=== PATIENT | male | born 1955 | race Caucasian/White ===

== ENCOUNTER 2021-05-07 11:51 | Outpatient (REF) | payer MEDICARE, MEDICAID, SELFPAY | END 2021-05-07 11:52 | disposition home or self-care (01) | LOC: HO.HMGCLDS 11:51 | PROVIDERS: PCP Family Medicine Adult Medicine; Visit Provider Internal Medicine | DX: Z20.822 Contact with and (suspected) exposure to COVID-19 (principal) | CPT/HCPCS: C9803; U0003; U0005 ==

== ENCOUNTER 2025-04-15 09:35 | Outpatient (AMB) | payer MEDICARE, MEDICAID, SELFPAY ==
--- NOTE | 2025-04-15 09:39 | AM.OFFWIN_ITS ---
Intake Vital Signs 04/15/25 09:52 Height 5 ft 8 in Weight 206 lb 2 oz BMI 31.3 BP 162/70 H Blood Pressure Location Rt brachial Position Sitting Pulse 72 Pulse Source Pulse Oximeter Temp 97.8 F Temp Source Oral Pulse Oximetry (%) 99 Oxygen Delivery Method Room Air Intake Visit Reasons: EP Arthritis in LT hand? Throbbing, swelling Intake Note: Patient present with bilateral hand swelling times 1 week. Patients states the is pain bilateral Patient Tobacco Use Status: Former Tobacco user Legal Researcher Required: No Allergies No Known Allergies Allergy (Verified 04/15/25 09:56) Medication List - Last Reconciled 04/15/25 by Meredith Gibson PA-C No Known Home Meds Do you need a note to return to daycare/school/sports/work: No HPI HPI Comments History of Present Illness Details History - The patient is a 69-year-old male pres enting with hypertension and bilateral hand pain, L>R. - The patient has a blood pressure readi ng of 162/70 mmHg and has not been under regular medical supervision for this condition. - The patient has not experienced sympto ms such as headaches, dizziness, or chest pain, despite the elevated blood pressure. - The patient reports a history of neck pain and was diagnosed with arthritis in the neck following an MRI after a fall in 2018. - The patient experiences intermittent p ain in the left shoulder and numbness in the left thumb. - The patient has noted swelling in the hand, which has led to the removal of a wedding ring. - the pain has disrupted his sleep - He has not seen a doctor in many years and does not have a PCP Physical Exam General: Cooperative, healthy appearing, comfortable, no acute distress and well developed Orientation: Patient oriented x3 Limitations: No limitations Head: Normal to inspection Ears: Hearing grossly normal bilaterally Nose: Normal External nose present Face and sinus: Normal facial exam Mouth: normal, moist oral mucosa Eyes: Appearance normal, both eyes and all related structures Neck: Normal visual inspection and Yes full ROM Respiratory: Normal respiratory effort and able to speak in complete sentences. 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 PFSH Social History Patient Tobacco Use Status: Former Tobacco user Review of Systems Const All systems reviewed & are unremarkable except as noted in HPI and below Physical Exam Vital Signs: Last Vital Signs Temp 97.8 F 04/15/25 09:52 Pulse 72 04/15/25 09:52 BP 162/70 H 04/15/25 09:52 Pulse Ox 99 04/15/25 09:52 Oxygen Delivery Method Room Air 04/15/25 09:52 BMI result Body Mass Index 31.3 Assessment & Plan Assessment & Plan (1) Elevated blood pressure reading in office without diagnosis of hypertension: Code(s): R03.0 - Elevated blood-pressure reading, without diagnosis of hypertension Plan: Patient was informed and verbally consented to the use of an ambient scribe for clinic note documentation during this visit Hypertension - The patient was advised to establish care with a primary care provider for ongoing management of hypertension. - Gave him the name of the PA in as well as the phone number and encouraged him to set up an appt to establish care. - Recommended to have cholesterol levels checked as part of routine health maintenance. - Also should have thyroid testing and hand issues could be related to thyroid issues. - Educated patient that uncontrolled hypertension can lead to a stroke and kidney damage, amongst other issues. - Educated patient that he should establish care with a PCP to manage his health. (2) Arthritis: Code(s): M19.90 - Unspecified osteoarthritis, unspecified site Plan: Cervical Arthritis - The patient was prescribed diclofenac for inflammation and pain management. - Advised to use Voltaren gel topically on affected areas for additional relief. Medications: New diclofenac sodium 50 mg PO Q12H PRN 20 tabs 0RF pain Coding Level of Care Code New Pt Level 4 (28673) Diagnoses Elevated blood pressure reading in office without diagnosis of hypertension R03.0 Arthritis M19.90
[2025-04-15 09:52] VITALS: BP 162/70; PULSE 72; TEMP 36.6; O2SAT 99; BMI 31.3
== END 2025-04-15 10:23 | disposition home or self-care (01) ==
PROVIDERS: Visit Provider Physician Assistant
DX: R03.0 Elevated blood-pressure reading, without diagnosis of hypertension (principal); M19.90 Unspecified osteoarthritis, unspecified site

== ENCOUNTER → 2025-04-15 09:35 | Outpatient (BNVA) | payer MEDICARE, MEDICAID, SELFPAY | PROVIDERS: Visit Provider Physician Assistant | DX: R03.0 Elevated blood-pressure reading, without diagnosis of hypertension (principal); M19.90 Unspecified osteoarthritis, unspecified site | CPT/HCPCS: 99202 ==

== ENCOUNTER 2025-04-17 08:38 | Inpatient (IN) | payer MEDICARE, MEDICAID, SELFPAY ==
[2025-04-17] VITALS (7 sets, daily range): BP systolic 127–181; BP diastolic 54–84; PULSE 73–82; RESP 16–20; TEMP 36.3–36.8; O2SAT 96–99; BMI 30.7
--- NOTE | ~2025-04-17 | CT_ITS ---
EXAMINATION: CT ABDOMEN WITHOUT CONTRAST CLINICAL INFORMATION: Acute renal failure, aborted renal biopsy due to hypertension DLP: 167 mGY*cm COMPARISON: CT performed 2 days earlier TECHNIQUE: Patient was imaged in a left lateral decubitus position. Contiguous axial thin section helical images of the abdomen were performed without contrast. The data set was reformatted in the coronal and sagittal planes and reviewed on an independent workstation. This CT examination was performed using dose optimization techniques as appropriate, variously including the following: *Automated exposure control *Adjustment of mA and/or kV according to patient size (this includes techniques or standardized protocols for targeted exams where dose is matched to indication/reason for exam; i.e. extremities or head) *Use of iterative reconstruction technique FINDINGS: LUNG BASES: There is mild dependent atelectasis. LIVER, GALLBLADDER, BILIARY TREE: The gallbladder are unremarkable. No calcified gallstones. PANCREAS: Unremarkable SPLEEN: Unremarkable ADRENAL GLANDS AND KIDNEYS: There is a simple renal cyst in the mid right kidney. Adrenal glands are unremarkable. BOWEL LOOPS: Visualized portions of the GI tract are unremarkable. LYMPH NODES: No adenopathy. VASCULAR: Mild vascular calcification seen in the abdominal aorta. BONES: There is mild to moderate disc space narrowing and endplate osteophytes present in the imaged portions of the thoracolumbar spine. CT/CT abdomen wo IV con IMPRESSION: Unremarkable examination. Fleischner guidelines were followed. Electronically signed by: Tono Henry MD 04/19/2025 02:15 PM EDT
--- NOTE | ~2025-04-17 | CT_ITS ---
CLINICAL HISTORY: ?bladder outlet obstruction --- Additional Notes or Special Instructions: elevated kidney function CT ABDOMEN AND PELVIS WITHOUT CONTRAST Comparison: None provided Findings: The lung bases are clear. No hydronephrosis or urolithiasis. No acute abnormalities in the remaining unenhanced solid organs. No large calcified gallstone. No AAA. No bowel obstruction, pneumoperitoneum, or pneumatosis. No ascites or organized fluid collection. No significant mesenteric or paracolic edema. The appendix is identified. No acute appendicitis. Colonic diverticulosis. No acute diverticulitis. The prostate is enlarged with AP x transverse dimensions of 5.3 x 6.0 cm. There is mass effect on the urinary bladder base. No significant urinary bladder wall thickening. There are bilateral fat containing inguinal hernias. No acute fracture or dislocation. Advanced osteoarthritic changes in the right hip. There is a well-circumscribed cystic mass in the medial compartment of the right thigh which measures 13.4 x 6.0 x 8.7 cm (Length x Height x Width). Density measurements = 2.0 HU. No significant adjacent fat stranding. IMPRESSION: 1. Prostatomegaly with moderate mass effect in the urinary bladder base. 2. No acute obstructive uropathy or urolithiasis. 3. No obstructive or acute inflammatory changes in the gastrointestinal tract. 4. Diverticulosis coli. 5. Large cyst in the medial compartment of the upper right thigh with no visible complex features. The possibility of an uncomplicated epidermal inclusion cyst is raised. If there has been prior trauma, the possibility of a liquefied hematoma is raised. This document has been electronically signed by: Jamilah Browne DO on 04/17/2025 13:22:37
--- NOTE | ~2025-04-17 | XR_ITS ---
CLINICAL HISTORY: Hands swelling and pain 3 view right hand 3 view left hand Comparison: None provided Findings: Bones intact. No dislocations. Mild/early degenerative changes in the bilateral interphalangeal and triscaphe joints. No erosions. No radiopaque foreign body. IMPRESSION: 1. No acute fracture or dislocation. 2. Mild/early nonerosive arthritic changes. This document has been electronically signed by: Jamilah Browne DO on 04/17/2025 14:11:12
--- NOTE | ~2025-04-17 | US_ITS ---
EXAMINATION: US KIDNEY BILATERAL HISTORY: SACHIN TECHNIQUE: Real-time grayscale ultrasound imaging of the kidneys was performed and images were reviewed. COMPARISON: Correlation is made with a CT of the abdomen without contrast dated 04/17/2025. FINDINGS: Right kidney: The right kidney measures 11.0 x 4.0 x 4.1 cm. Renal parenchymal echotexture and thickness are normal. There is a lower pole cyst measuring 5 x 5 x 7 mm. There is no hydronephrosis or renal calculi. Left Kidney: The left kidney measures 9.0 x 3.4 x 3.3 cm. The upper pole is not well visualized. Renal parenchymal echotexture and thickness are otherwise normal. There are no masses. There is no hydronephrosis or renal calculi. US/US renal BI IMPRESSION: 7 mm right lower pole renal cyst. The upper pole of the left kidney is not well visualized. Otherwise unremarkable renal ultrasound. Electronically signed by: Mick Rodrigez MD 04/19/2025 07:07 AM EDT
[2025-04-17 09:02] LABS: MANUAL DIFF FLAG NO
[2025-04-17 09:04] LABS: Hematocrit 21.4 % (42.0-52.0); Hemoglobin 7.4 g/dl (14.0-18.0); Imm Gran Abs Auto 0.09 X10*3/uL (0.00-0.03); Imm Gran Pct Auto 1.1 % (0.0-0.4); Lymphocytes Absolute Auto 1.1 X10*3/uL (1.2-4.9); Mean Corpuscular HGB Conc 34.6 g/dl (31.0-36.0); Mean Corpuscular Hemoglobin 30.2 pg (27.0-33.0); Mean Corpuscular Volume 87.3 fL (80.0-98.0); NRBC Abs Auto 0.000 X10*3/uL (0.0-0.012); NRBC Pct Auto 0.0 /100WBC (0.0-0.2); Platelet Count 224 X10*3/uL (160-400); Red Blood Count 2.45 X10*6/uL (4.60-5.80); White Blood Count 8.0 X10*3/uL (4.8-10.8)
[2025-04-17 09:23] LABS: B Type Natriuretic Peptide 100 pg/mL (<100)
[2025-04-17 09:24] LABS: Alanine Aminotransferase 12 U/L (0-40); Albumin Level 4.2 g/dL (3.5-5.0); Alkaline Phosphatase 57 U/L (39-117); Anion Gap 17 (12-20); Aspartate Amino Transferase 10 U/L (5-37); Blood Urea Nitrogen 123 mg/dL (9-16); Calcium 8.5 mg/dL (8.4-10.2); Carbon Dioxide 13 mmol/L (22-29); Chloride 114 mmol/L (96-108); Creatinine Clr Calc Pharmacy 10.7; Estimated Glomerular Filt Rate 8; Lipase 128 U/L (8-78); Potassium 5.4 mmol/L (3.3-5.1); Sodium 139 mmol/L (135-145); Total Protein 6.2 g/dL (6.5-8.0)
--- NOTE | 2025-04-17 10:32 | ED_ITS ---
HPI - General Adult General Chief complaint: General Medical Stated complaint: hand swelling Time Seen by Provider: 04/17/25 10:12 Source: patient and RN notes reviewed Mode of arrival: ambulatory Limitations: no limitations History of Present Illness ED Provider: Alta Flowers PA-C HPI narrative: This is a 69-year-old male, with no known medical problems, who presents emergency department with concerns of bilateral hand swelling x 1-2 weeks. Patient denies any known trauma or injury. He states that over the last several weeks he has had increased swelling in his hands which occasionally does cause some numbness and tingling. Patient reports that he has had difficulty with sleeping as this occasionally does wake him up in the middle of the night. You were taking ibuprofen 600-800 mg several times a day without any relief. He also states that he took a couple doses of prednisone, that was prescribed to his , states that this would have helped however he had no relief. He states that he was seen at an urgent care on April 15 due to his bilateral hand pain and he was prescribed diclofenac. He has been taking this without any relief. He denies any fevers, chills, chest pain, shortness of breath, abdominal pain, nausea, vomiting or diarrhea. He states that he has been urinating more frequently. He denies any other complaints or concerns at this time. MD complaint: Bilateral hand swelling Onset (ago): day(s) Radiation: non-radiation Relieving factors: none Exacerbating factors: none Associated symptoms: denies other symptoms Treatments prior to arrival: none Related Data Previous Rx's ?Medication ?Instructions ?Recorded amlodipine 10 mg tablet 10 mg PO DAILY #90 tabs 04/05 04/29 labetalol 100 mg tablet 100 mg PO BID #180 tabs 04/05 04/29 prednisone 20 mg tablet 40 mg (2 x 20 mg) PO DAILY 4 days 04/21/25 #8 tabs Allergies Allergy/AdvReac Type Severity Reaction Status Date / Time No Known Allergies Allergy Verified 04/17/25 08:46 Review of Systems 2 Review of Systems: Yes all other systems are reviewed and are negative Constitutional: Constitutional: Reports as per [facility] Social History Social History Household Members: Spouse and Family Housing: House Do you presently have visiting nurse or other home services: No Patient Tobacco Use Status: Former Tobacco user service: No Physical Exam ED Vital Signs: Vital Signs - 24 hr 04/17/25 08:41 04/17/25 11:06 Temperature 97.3 F 97.9 F Pulse Rate 73 77 Respiratory Rate 20 18 Blood Pressure 181/82 H 177/84 H Pulse Oximetry 99 99 Oxygen Delivery Method Room Air Room Air BMI result Body Mass Index 30.7 Const General: cooperative, comfortable and no acute distress Orientation/consciousness: patient oriented x3 Limitations: no limitations HENMT Head: Yes normal to inspection, Yes normocephalic and Yes atraumatic Ears: hearing grossly normal bilaterally General nose exam: Normal external nose present Face and sinus: Yes normal facial exam Mouth: Normal oral and palatal mucosa present, oropharynx normal and moist mucous membranes Throat: Yes posterior oropharynx normal Eyes General: appearance normal, both eyes and all related structures Eyelids: Yes eyelids normal Conjunctivae: conjunctivae normal Sclerae: sclerae normal Pupils: Equal, round and reactive pupils present EOM: EOMs intact bilaterally Neck Neck: Yes normal visual inspection, Yes full ROM and Yes no lymphadenopathy Lymphatic: no lymphadenopathy noted Chest Chest palpation & inspection: normal inspection of the chest Resp Effort & Inspection: normal respiratory effort and able to speak in complete sentences Auscultation: clear to auscultation bilaterally, no crackles, no rales, no rhonchi and no wheezes Cardio Rate: regular rate Rhythm: regular rhythm Heart sounds: S1 normal heart sound present and S2 normal heart sound present GI Inspection: Yes normal to inspection Skin General skin exam: no rashes or lesions noted Trauma: no lacerations or abrasions Wounds: no wounds Neuro General: patient oriented x3 and moves all extremities Cranial nerves: Yes Equal, round and reactive pupils present Extrem General: Yes normal to inspection Right upper extremity: normal to inspection Left upper extremity: normal to inspection Right lower extremity: normal to inspection Left lower extremity: normal to inspection Medications Administered Generic Name Dose Route Start Last Admin Trade Name Freq PRN Reason Stop Dose Admin Amlodipine Besylate 10 mg 04/21/25 09:00 04/21/25 07:21 Amlodipine Besylate 10 Mg Tablet PO 10 mg DAILY [facility] Administration Protocol Labetalol HCl 100 mg 04/21/25 07:25 04/21/25 07:30 Labetalol Hcl 100 Mg Tablet PO 100 mg BID [facility] Administration Protocol Ondansetron HCl 4 mg 04/18/25 14:09 04/18/25 15:18 Ondansetron Hcl 4 Mg/2 Ml Vial IVPUSH 4 mg Q8H PRN Administration Nausea and Vomiting Oxycodone HCl 5 mg 04/17/25 14:39 04/21/25 06:02 Oxycodone Hcl Immed Release 5 Mg Tablet PO 5 mg Q4H PRN Administration hands pain Prednisone 4 mg 04/20/25 08:45 04/21/25 10:46 Prednisone 1 Mg Tablet PO 4 mg DAILY SRIN[facility] Administration Sevelamer Carbonate 800 mg 04/17/25 17:00 04/21/25 08:49 Sevelamer Carbonate Tablet 800 Mg Tablet PO Not Given TIDWM SRINATH Sodium Chloride 3 ml 04/17/25 16:00 04/21/25 07:23 0.9 % Sodium Chloride Flush 3 Ml Syringe IVFLUSH 3 ml QSHIFT SRINATH Administration Discontinued Medications Generic Name Dose Route Start Last Admin Trade Name Freq PRN Reason Stop Dose Admin Amlodipine Besylate 5 mg 04/17/25 15:05 04/20/25 08:36 Amlodipine Besylate 5 Mg Tablet PO 5 mg DAILY SRIN[facility] Administration Protocol Amlodipine Besylate 5 mg 04/20/25 09:00 04/20/25 09:31 Amlodipine Besylate 5 Mg Tablet PO 04/20/25 09:01 5 mg ONCE ONE Administration Fentanyl 50 mcg 04/19/25 13:05 04/19/25 12:58 Fentanyl Citrate/Pf 100 Mcg/2 Ml Vial IVPUSH 04/19/25 13:06 50 mcg ONCE ONE Administration Protocol Hydralazine HCl 5 mg 04/19/25 13:31 04/19/25 13:32 Hydralazine Hcl 20 Mg/Ml Vial IVPUSH 04/19/25 13:32 5 mg ONCE ONE Administration Protocol Sodium Bicarbonate 150 meq/ 1,000 mls @ 100 mls/hr 04/17/25 11:15 04/18/25 18:33 Dextrose IV Infused .Q10H SRINATH Infusion Sodium Bicarbonate 150 meq/ 1,000 mls @ 100 mls/hr 04/18/25 17:30 04/19/25 12:08 Dextrose IV Infused .Q10H SRINATH Infusion Desmopressin Acetate 20 mcg/ 55 mls @ 100 mls/hr 04/19/25 11:51 04/20/25 07:22 Sodium Chloride IV 04/19/25 12:25 Infused ONCE ONE Infusion Labetalol HCl 5 mg 04/19/25 13:01 04/19/25 13:02 Labetalol Hcl 100 Mg/20 Ml Vial IVPUSH 04/19/25 13:02 5 mg ONCE ONE Administration Labetalol HCl 5 mg 04/19/25 13:12 04/19/25 13:11 Labetalol Hcl 100 Mg/20 Ml Vial IVPUSH 04/19/25 13:13 5 mg ONCE ONE Administration Midazolam HCl 1 mg 04/19/25 13:04 04/19/25 12:58 Midazolam Hcl 2 Mg/2 Ml Vial IVPUSH 04/19/25 13:05 1 mg ONCE ONE Administration Morphine Sulfate 2 mg 04/18/25 02:59 04/18/25 03:21 Morphine Sulfate 2 Mg/Ml Cartridge IVPUSH 04/18/25 03:00 2 mg ONCE ONE Administration Protocol Pantoprazole Sodium 40 mg 04/17/25 16:30 04/20/25 06:02 Pantoprazole Sodium 40 Mg/10 Ml Vial IVPUSH 40 mg BID@0630,1630 SRIN[facility] Administration Sodium Zirconium Cyclosilicate 10 gm 04/17/25 14:59 04/17/25 15:17 Sodium Zirconium Cyclosilicate 10 Gm Powd.Pack PO 04/17/25 15:00 10 gm ONCE STA Administration Medical Decision Making Medical Decision Making [facility] Narrative: This is a 69-year-old male, with no known medical problems, who presents emergency department with concerns of bilateral hand pain for several weeks. He has been taking ibuprofen,and several doses of prednisone, and then 2 days ago he was seen at an urgent care and was prescribed diclofenac. He states that he took these medications without any relief. On arrival, blood pressure elevated at 181/82, all other vital signs within normal limits. He is well-appearing, appears to be under no acute distress. Labs were obtained prior to my evaluation, he was found to be anemic with an H&H of 7.4/21.4, and chemistry revealing hyperkalemia, high chloride at 114 and carbon dioxide at 13, BUN is elevated at 123, creatinine 7.1. Lipase elevated at 128. I discussed this with my attending physician, Dr. Kumar. Patient has not been seen by a primary care physician in over 30 years. It is unclear if this is an acute injury secondary to recent diclofenac, ibuprofen, and prednisone use or if he has had chronic kidney disease, and with these new agents this has been offending his kidney function. Will obtain CT abdomen and pelvis without contrast to rule out bladder outlet obstruction, will obtain stool occult to rule out possible GI bleed in etiology although patient denies any bloody or black stool. We will also obtain an EKG. Given electrolyte derangement, patient would benefit from sodium bicarb drip. Will continue to closely monitor. He is hemodynamically stable. Differential diagnoses include acute on chronic kidney disease, renal failure, bladder outlet obstruction. I did discuss this case with hospitalist, Dr. Engle who accepts transfer of care. Differential Diagnosis Differential Diagnoses: The differential diagnosis associated with the presentation includes See above Admission/Observation Consideration of admission/observation: Escalation of care including admission/observation considered Patient needing admission secondary to acute renal failure Lab Data [facility] Lab Attestation statement: I reviewed the patient's lab results. See MDM and course 04/21/25 05:57 04/21/25 05:57 Labs: Lab Results 04/17/25 Range/Units 08:58 WBC 8.0 (4.8-10.8) X10*3/uL RBC 2.45 L (4.60-5.80) X10*6/uL Hgb 7.4 L (14.0-18.0) g/dl Hct 21.4 L (42.0-52.0) % MCV 87.3 (80.0-98.0) fL MCH 30.2 (27.0-33.0) pg MCHC 34.6 (31.0-36.0) g/dl RDW 14.5 (11.0-16.0) % Plt Count 224 (160-400) X10*3/uL MPV 9.1 L (9.4-12.4) fL Immature Gran % (Auto) 1.1 H (0.0-0.4) % Neut % (Auto) 73.3 H (45-73) % Lymph % (Auto) 13.3 L (20-40) % Mcpherson % (Auto) 10.0 (2-11) % Eos % (Auto) 2.0 (0-4) % Baso % (Auto) 0.3 (0-2) % Lymph # (Auto) 1.1 L (1.2-4.9) X10*3/uL Mcpherson # (Auto) 0.8 (0.1-1.2) X10*3/uL Eos # (Auto) 0.2 (0.0-0.4) X10*3/uL Baso # (Auto) 0.0 (0.0-0.2) X10*3/uL Abs Immat Gran (auto) 0.09 H (0.00-0.03) X10*3/uL Absolute Neuts (auto) 5.9 (2.0-8.3) x10*3/uL Absolute Nucleated RBC 0.000 (0.0-0.012) X10*3/uL Nucleated RBC % (auto) 0.0 (0.0-0.2) /100WBC Absolute Retic 0.062 (0.026-0.095) X10*6/uL Percent Retic 2.5 H (0.5-1.8) % Immature Retic Fraction 9.4 (2.3-13.4) % Retic Hgb Equivalent 34.3 (30.0-35.0) pg Sodium 139 (135-145) mmol/L Potassium 5.4 H (3.3-5.1) mmol/L Chloride 114 H (96-108) mmol/L Carbon Dioxide 13 L (22-29) mmol/L Anion Gap 17 (12-20) BUN 123 H (9-16) mg/dL Creatinine 7.15 H* (0.5-1.4) mg/dL Estim Creat Clear Calc 10.7 Estimated GFR 8 Random Glucose 101 (60-115) mg/dL Calcium 8.5 (8.4-10.2) mg/dL Phosphorus 6.9 H (2.7-4.5) mg/dL Magnesium 2.6 (1.6-2.6) mg/dL Iron 100 (45-160) mcg/dL TIBC 270 (228-428) mcg/dL % Saturation 37 (15-50) % Unsat Iron Binding 170 ug/dL Total Bilirubin 0.4 (0.0-1.0) mg/dL Direct Bilirubin 0.2 (0.0-0.5) mg/dL AST 10 (5-37) U/L ALT 12 (0-40) U/L Alkaline Phosphatase 57 (39-117) U/L Lactate Dehydrogenase 195 (118-273) U/L C-Reactive Protein 0.15 (< or = 0.50) mg/dL B-Natriuretic Peptide 100 (<100) pg/mL Total Protein 6.2 L (6.5-8.0) g/dL Albumin 4.2 (3.5-5.0) g/dL Lipase 128 H (8-78) U/L TSH 2.77 (0.32-4.0) uIU/mL Radiology Impression Discussion of test interpretation with radiology: I have reviewed the radiologist's reading. Radiologist Impression: Findings: The lung bases are clear. No hydronephrosis or urolithiasis. No acute abnormalities in the remaining unenhanced solid organs. No large calcified gallstone. No AAA. No bowel obstruction, pneumoperitoneum, or pneumatosis. No ascites or organized fluid collection. No significant mesenteric or paracolic edema. The appendix is identified. No acute appendicitis. Colonic diverticulosis. No acute diverticulitis. The prostate is enlarged with AP x transverse dimensions of 5.3 x 6.0 cm. There is mass effect on the urinary bladder base. No significant urinary bladder wall thickening. There are bilateral fat containing inguinal hernias. No acute fracture or dislocation. Advanced osteoarthritic changes in the right hip. There is a well-circumscribed cystic mass in the medial compartment of the right thigh which measures 13.4 x 6.0 x 8.7 cm (Length x Height x Width). Density measurements = 2.0 HU. No significant adjacent fat stranding. IMPRESSION: 1. Prostatomegaly with moderate mass effect in the urinary bladder base. 2. No acute obstructive uropathy or urolithiasis. 3. No obstructive or acute inflammatory changes in the gastrointestinal tract. 4. Diverticulosis coli. 5. Large cyst in the medial compartment of the upper right thigh with no visible complex features. The possibility of an uncomplicated epidermal inclusion cyst is raised. If there has been prior trauma, the possibility of a liquefied hematoma is raised. This document has been electronically signed by: Jamilah Browne DO on 04/17/2025 13:22:37 Dictated By: Jamilah Browne MD External Record Review External record reviewed: Inpatient record, Office record, Outpatient record, Prior outpatient labs, Prior outpatient radiology, Primary care record and Outside ED record Critical Care Time Critical Care Time Critical Care Time: Yes Total Critical Care Time: 63 Attestation: I have personally provided critical care time exclusive of time spent on separately billable procedures. Time includes review of lab data, radiology results, discussion with consultants, and monitoring for potential decompensation. Intervention performed as documented. Discharge Plan Discharge Clinical Impression: SACHIN (acute kidney injury) Patient Disposition: Admitted As Inpatient Interventions: Admission Worksheet (ED) Last Done: 04/18/25 13:29 Discharge Date/Time: 04/18/25 14:24
--- NOTE | 2025-04-17 11:22 | ECG_ITS ---
Test Reason : HYPERKALIMA Blood Pressure : */* mmHG Vent. Rate : 83 BPM Atrial Rate : 83 BPM P-R Int : 200 ms QRS Dur : 88 ms QT Int : 390 ms P-R-T Axes : 111 -7 36 degrees QTcB Int : 458 ms Sinus rhythm with frequent Premature ventricular complexes Otherwise normal ECG No previous ECGs available Referred By: Alta Flowers Electronically Signed By: KIRBY WALTERS
[2025-04-17 11:50] LABS: Magnesium 2.6 mg/dL (1.6-2.6)
[2025-04-17] MEDS: Sodium Bicarbonate 8.4% 150 MEQ in Dextrose 5 % 850 ML 100 MEQ IV ×2 (12:09→21:56)
--- NOTE | 2025-04-17 13:02 | P.HPHOSP_ITS ---
History of Present Illness Date of Service: 04/17/25 Attending physician on admission: Jeff Engle Chief Complaint: Bilateral hand pain Kevin Hubbard is a 69 years old man with no significant past medical history presents to the ED complaining of ongoing pain to both hands associated with swelling. This program has been going on for at least 2 weeks. He has been taking 600 - 800 mg of Advil at least twice day for the pain. He was recently prescribed with diclofenac after a received to the urgent care. He reported any other problems such as headache, palpitation, chest pain, shortness on breath, abdominal pain, nausea, vomiting, diarrhea or black/bloody stools. There are no fever or chills. He does complain of urinary frequency. He has no history of diabetes mellitus, hypertension, remote of arthritis, hyperlipidemia, MIs, CVA or kidney problems. He does not follow routinely with the primary doctor. He does not take any daily medications other than Advil. He is a former smoker. Did not report alcohol abuse or illicit drug use. In the ED, he was found to have stable vital sign. His blood pressure is elevated, last BP is 177/84. Blood workup showed no leukocytosis. Hemoglobin is 7.4 --> 7.8, hematocrit 23.9 and MCV is 87.3. Platelets are 224. Urine laxative is elevated, 8.2 as well as phosphate. Potassium is 5.4 -> 5.5. Lipase elevated, 128. Abdominal pelvis CT scan without contrast showed prostatomegaly with mass effect in the urinary bladder base, no acute obstructive uropathy or urolithiasis, possible uncomplicated epidermal inclusion cyst versus liquified hematoma (if hx of trauma). Bilateral hand x-ray showed no acute fracture or dislocation, it did showed mild/early non erosive antritis changes. ECG showed normal sinus rhythm with frequent PVCs and no ischemic changes. ED tx: Bicarb infusion Review of Systems 2 Review of Systems: All 12 systems were reviewed and normal except as noted in HPI. PMFSH Social History Patient Tobacco Use Status: Former Tobacco user Advance Directives: No Advance Directives Information Provided: No Do you have a plan to hurt others: No Plan Meds Allergies Allergy/AdvReac Type Severity Reaction Status Date / Time No Known Allergies Allergy Verified 04/17/25 08:46 Active Medications: Current Medications Acetaminophen (Acetaminophen 325 Mg Tablet) 975 mg PO Q6H PRN PRN Reason: Pain, Mild 1-3,fever,headache Hydromorphone HCl (Hydromorphone Hcl 1 Mg/Ml Syringe) 0.5 mg IVPUSH Q4H PRN; Protocol PRN Reason: Pain, Severe (Pain Scale 7-10) Sodium Bicarbonate 150 meq/ (Dextrose) 1,000 mls @ 100 mls/hr IV .Q10H SRINATH Last Admin: 04/17/25 12:09 Dose: 100 mls/hr Sodium Chloride (0.9 % Sodium Chloride Flush 3 Ml Syringe) 3 ml IVFLUSH QSHIFT COUNT INCLUDES THE [facility] Physical Exam 2 Vital Signs and Narrative: Vital Signs: Last Vital Signs Temp 97.9 F 04/17/25 11:06 Pulse 77 04/17/25 11:06 Resp 18 04/17/25 11:06 BP 177/84 H 04/17/25 11:06 Pulse Ox 99 04/17/25 11:06 O2 Del Method Room Air 04/17/25 11:06 BMI result Body Mass Index 30.7 Constitutional - Awake and Alert, No apparent distress HEENT - PERRLA, EOMI Heart - S1S2, RRR, No edema Lungs - Normal lung expansion, Normal respiratory effort, No respiratory distress, CTA bilaterally Abdomen - NT / ND; +BS; No rebound or guarding Extremities - pitting edema to the lower extremities, hands: No tenderness to palpation, mild edema, normal ROM. Wrists: No effusions, normal ROM, nontender. Musculoskeletal - Normal inspection, normal ROM Skin - Warm/Dry. Pallor (+). No jaundice. Neurological - Alert & oriented x3. Moving all extremities spontaneously. Normal gait. Normal speech. Psychological - Appropriate affect Results Labs 04/17/25 13:28 04/17/25 13:27 Labs: Laboratory Results - last 24 hr 04/17/25 08:58 MCV 87.3 MCH 30.2 MCHC 34.6 RDW 14.5 Plt Count 224 MPV 9.1 L Immature Gran % (Auto) 1.1 H Neut % (Auto) 73.3 H Lymph % (Auto) 13.3 L [place] % (Auto) 10.0 Eos % (Auto) 2.0 Baso % (Auto) 0.3 Lymph # (Auto) 1.1 L [place] # (Auto) 0.8 Eos # (Auto) 0.2 Baso # (Auto) 0.0 Abs Immat Gran (auto) 0.09 H Absolute Neuts (auto) 5.9 Absolute Nucleated RBC 0.000 Nucleated RBC % (auto) 0.0 Anion Gap 17 Estim Creat Clear Calc 10.7 Estimated GFR 8 Random Glucose 101 Calcium 8.5 Phosphorus 6.9 H Magnesium 2.6 Total Bilirubin 0.4 Direct Bilirubin 0.2 AST 10 ALT 12 Alkaline Phosphatase 57 B-Natriuretic Peptide 100 Total Protein 6.2 L Albumin 4.2 Lipase 128 H Assessment and Plan (1) SACHIN (acute kidney injury): Status: Acute (2) Uncontrolled hypertension: Status: Acute (3) Anemia: Qualifiers: Anemia type: unspecified type Qualified Code(s): D64.9 - Anemia, unspecified Status: Acute (4) Epidermal inclusion cyst: Status: Acute Plan Kevin Hubbard is a 69 y/o man admitted with: Acute kidney injury associated with normal anion gap metabolic acidosis and hyperkalemia (5.5). Admit to hospitalist service. Telemetry. Continue bicarb infusion. Lokelma 10 g p.o.. Avoid NSAIDs. Renal diet. Continue to monitor renal function, electrolyte and CO2. Check vitamin-D, VBG, PTH and lipid panel. Nephrology consult. Uncontrolled hypertension. Start treatment with normal 5 mg p.o. now and then daily. Hydralazine IV as needed. Anemia, likely secondary to underlying chronic kidney disease/above. Normal MCV. Anemia workup: Retic count elevated. Stool for occult blood and LDH. Continue to monitor H&H. Start treatment with Protonix IV twice daily. Bilateral hand pain and swelling. Bilateral hand x-ray showed early/mild non erosive arthritic changes Check uric acid, rheumatoid factor, LILIA test, CCP Ab and anti-DS DNA. Pain control with oxycodone. Incidental large uncomplicated inclusion cyst, medial right upper thigh. No history of recent trauma and not taking blood thinner. (less likely liquefied hematoma) but history of inguinal hernia repair surgery (pt does not recall which side, this happened long time ago. No symptoms reported. DVT prophylaxis: SCDs Code status: Full Patient will need hospitalization for at least 2 midnights for acute kidney injury treatment with IV bicarb, close monitoring of renal function and electrolytes, further blood workup diet and evaluation by Nephrology. Quality Stroke Does the patient have a stroke diagnosis?: No VTE Prior VTE?: No VTE Risk Level:: Medical - moderate - high VTE Device Contraindication: N/A - Device Ordered VTE Drug Contraindication: Treatment Not Indicated
[2025-04-17 13:23] LABS: Reticulocytes Absolute 0.062 X10*6/uL (0.026-0.095)
[2025-04-17 13:26] LABS: Iron 100 mcg/dL (45-160); Percent Iron Saturation 37 % (15-50); Total Iron Binding Capacity 270 mcg/dL (228-428); Unsaturated Iron Binding 170 ug/dL
[2025-04-17 13:37] LABS: Hematocrit 23.9 % (42.0-52.0); Hemoglobin 7.8 g/dl (14.0-18.0)
[2025-04-17 13:50] LABS: Potassium 5.5 mmol/L (3.3-5.1); Sodium 140 mmol/L (135-145); Uric Acid 8.2 mg/dL (3.4-7.0)
--- NOTE | 2025-04-17 14:23 | PHA.MEDREC ---
Addendum entered by Gail Domingo RPh 04/17/25 14:37: REVIEWED BY [facility] Original Note: Pharmacy Consult ? Medication Reconciliation Pharmacy has completed the medication reconciliation. Spoke with patient and at bedside. He has been taking chris and turmeric supplements for the past two weeks. He last took diclofenac this morning around 4 am.
[2025-04-17 15:08] LABS: Thyroid Stimulating Hormone 2.77 uIU/mL (0.32-4.0)
[2025-04-17 15:33] LABS: Appearance Urine Clear; Glucose Urine UA Negative (Negative); PH 5.0 (5.0-9.0); Specific Gravity - Urine 1.010 (1.005-1.025); UMIC TRIGGER UACC YES
--- NOTE | 2025-04-17 15:39 | PC.NURSE ---
pt medicated per MAR
[2025-04-17 16:16] LABS: OBS Int Ctl Valid YES; OBS1 NEGATIVE (NEGATIVE)
[2025-04-17] MEDS: Sevelamer Carbonate Tablet 800 MG TABLET PO (17:51)
--- NOTE | 2025-04-17 20:10 | PC.NURSE ---
bicarb in D5 requested from pharmacy for 2114
[2025-04-17] MEDS: oxyCODONE HCl Immed Release 5 MG TABLET PO (21:27)
[2025-04-18] VITALS (11 sets, daily range): BP systolic 138–168; BP diastolic 55–89; PULSE 60–77; RESP 12–18; TEMP 36–37.1; O2SAT 96–100
[2025-04-18 00:07] LABS: Venous Blood Gas Refer to POC result
[2025-04-18 00:11] LABS: Hemoglobin 6.8 g/dl (14.0-18.0)
[2025-04-18 00:11] LABS: VBG HCO3 16 mmol/L (22-26)
[2025-04-18 00:12] LABS: Hematocrit 19.7 % (42.0-52.0)
[2025-04-18 00:26] LABS: Anion Gap 17 (12-20); Blood Urea Nitrogen 116 mg/dL (9-16); Calcium 8.1 mg/dL (8.4-10.2); Carbon Dioxide 16 mmol/L (22-29); Chloride 111 mmol/L (96-108); Creatinine Clr Calc Pharmacy 10.4; Estimated Glomerular Filt Rate 7; Potassium 4.4 mmol/L (3.3-5.1); Sodium 140 mmol/L (135-145)
[2025-04-18] MEDS: oxyCODONE HCl Immed Release 5 MG TABLET PO ×3 (01:27→15:18)
--- NOTE | 2025-04-18 02:46 | PC.NURSE ---
Second access established in left wrist 20g , VSS, consent signed. Awaiting PRBC
[2025-04-18 06:00] LABS: Hemoglobin A1C 81.8434 umol/L; Total Hemoglobin (HGBA1C) 1941.3925 umol/L
[2025-04-18 06:04] LABS: Parathyroid Hormone Intact 311.7 pg/mL (8.7-77.1)
[2025-04-18 06:21] LABS: Anion Gap 17 (12-20); Blood Urea Nitrogen 110 mg/dL (9-16); Calcium 8.1 mg/dL (8.4-10.2); Carbon Dioxide 17 mmol/L (22-29); Chloride 110 mmol/L (96-108); Cholesterol 109 mg/dL (<200); Creatinine Clr Calc Pharmacy 10.4; Estimated Glomerular Filt Rate 7; HDL Cholesterol 39 mg/dL (>40); Magnesium 2.4 mg/dL (1.6-2.6); Potassium 4.2 mmol/L (3.3-5.1); Sodium 140 mmol/L (135-145); Triglycerides 74 mg/dL (<150)
--- NOTE | 2025-04-18 07:05 | PC.NURSE ---
Oncoming RN, John and TW completed bedside safe start. PIN not working for oncoming RN. Full report given.
[2025-04-18] MEDS: Sodium Bicarbonate 8.4% 150 MEQ in Dextrose 5 % 850 ML 100 MEQ IV ×2 (07:31→18:21)
[2025-04-18] MEDS: 0.9 % Sodium Chloride Flush 3 ML SYRINGE IVFLUSH ×3 (07:32→22:04)
--- NOTE | 2025-04-18 07:41 | PC.NURSE ---
Report has been taken from previous rn. Pt is caox4 with nonlabored resps and a strong and regular radial pulse, his skin is wpd. Pt was able to use urinal and ambulate with a brisk steady gait at bedside. He reports 5/10 hand pain but is refusing pain medication at this time. Kevin has been updated as to the plan if his care and has no questions at this time. He is reporting mild nausea, a tiger text has been sent to hospitalist requesting prn zofran. His call lee is within reach, we are waiting for a bed assignemnet. He is in NSR in leads 2 on monitor.
--- NOTE | 2025-04-18 08:09 | P.PNIM_ITS ---
Subjective Subjective Date of Service: 04/20/25 Interval History: f/u on renal failure, anemia and left hand pain. c/o left hand pain and swelling for 3 months renal function is nearly 6, and severe anemic there are no prior values Physical Exam 2 Vital Signs: Vital Signs: Last Vital Signs Temp 97.0 F 04/18/25 06:19 Pulse 61 04/18/25 06:19 Resp 12 04/18/25 06:19 BP 138/79 04/18/25 06:19 Pulse Ox 100 04/18/25 06:00 O2 Del Method Room Air 04/18/25 06:00 BMI result Body Mass Index 30.7 Const: Other: General: AO X 3, no acute distress Resp: CTA bilateral CVS: S1,S2,RRR GI: +BS, NT, no distention Skin: No rash Ext: mild swelling in the left hand, no redness, Neuro: motor grossly intact Psych: appropriate affect Objective Data Active Medications Acetaminophen (Acetaminophen 325 Mg Tablet) 975 mg PO Q6H PRN PRN Reason: Pain, Mild 1-3,fever,headache Amlodipine Besylate (Amlodipine Besylate 5 Mg Tablet) 5 mg PO DAILY [facility]; Protocol Last Admin: 04/17/25 15:15 Dose: 5 mg Documented By: YAO Hydralazine HCl (Hydralazine Hcl 20 Mg/Ml Vial) 10 mg IVPUSH Q6H PRN; Protocol PRN Reason: SBP > 160 Sodium Bicarbonate 150 meq/ (Dextrose) 1,000 mls @ 100 mls/hr IV .Q10H [facility] Last Admin: 04/18/25 07:31 Dose: 100 mls/hr Documented By: AZUL Oxycodone HCl (Oxycodone Hcl Immed Release 5 Mg Tablet) 5 mg PO Q4H PRN PRN Reason: hands pain Last Admin: 04/18/25 01:27 Dose: 5 mg Documented By: MICHI Pantoprazole Sodium (Pantoprazole Sodium 40 Mg/10 Ml Vial) 40 mg IVPUSH BID@0630,1630 [facility] Last Admin: 04/18/25 06:20 Dose: 40 mg Documented By: MICHI Sevelamer Carbonate (Sevelamer Carbonate Tablet 800 Mg Tablet) 800 mg PO TIDWM [facility] Last Admin: 04/17/25 17:51 Dose: 800 mg Documented By: YAO Sodium Chloride (0.9 % Sodium Chloride Flush 3 Ml Syringe) 3 ml IVFLUSH QSHIFT [facility] Last Admin: 04/18/25 07:32 Dose: 3 ml Documented By: AZUL Labs 04/20/25 05:25 04/20/25 05:25 Labs: Laboratory Results - last 24 hr 04/17/25 04/17/25 04/17/25 08:58 13:27 15:21 MCV 87.3 MCH 30.2 MCHC 34.6 RDW 14.5 Plt Count 224 MPV 9.1 L Immature Gran % (Auto) 1.1 H Neut % (Auto) 73.3 H Lymph % (Auto) 13.3 L [place] % (Auto) 10.0 Eos % (Auto) 2.0 Baso % (Auto) 0.3 Lymph # (Auto) 1.1 L [place] # (Auto) 0.8 Eos # (Auto) 0.2 Baso # (Auto) 0.0 Abs Immat Gran (auto) 0.09 H Absolute Neuts (auto) 5.9 Absolute Nucleated RBC 0.000 Nucleated RBC % (auto) 0.0 Absolute Retic 0.062 Percent Retic 2.5 H Immature Retic Fraction 9.4 Retic Hgb Equivalent 34.3 VBG pH VBG pCO2 VBG pO2 VBG HCO3 VBG O2 Saturation VBG Base Excess Anion Gap 17 Estim Creat Clear Calc 10.7 Estimated GFR 8 Random Glucose 101 Estimat Average Glucose Hemoglobin A1c % Uric Acid 8.2 H Calcium 8.5 Phosphorus 6.9 H Magnesium 2.6 Iron 100 TIBC 270 % Saturation 37 Unsat Iron Binding 170 Total Bilirubin 0.4 Direct Bilirubin 0.2 AST 10 ALT 12 Alkaline Phosphatase 57 Lactate Dehydrogenase 195 C-Reactive Protein 0.15 B-Natriuretic Peptide 100 Total Protein 6.2 L Albumin 4.2 Triglycerides Cholesterol LDL Cholesterol, Calc HDL Cholesterol Lipase 128 H TSH 2.77 PTH Intact Urine Color Yellow Urine Appearance Clear Urine pH 5.0 Ur Specific [place] 1.010 Urine Protein 100 (2+) H Urine Glucose (UA) Negative Urine Ketones Negative Urine Blood Trace H Urine Nitrite Negative Ur Leukocyte Esterase Trace H Urine RBC 0-2 Urine WBC 0-5 Ur Squamous Epith Cells 0-2 Urine Bacteria None Seen Hyaline Casts 3-5 Ur Random Sodium 50.0 Urine Creatinine 45.41 Stool Occult Blood Rheumatoid Factor Blood Type Antibody Screen Crossmatch 04/17/25 04/18/25 04/18/25 16:10 00:01 00:06 MCV MCH MCHC RDW Plt Count MPV Immature Gran % (Auto) Neut % (Auto) Lymph % (Auto) [place] % (Auto) Eos % (Auto) Baso % (Auto) Lymph # (Auto) [place] # (Auto) Eos # (Auto) Baso # (Auto) Abs Immat Gran (auto) Absolute Neuts (auto) Absolute Nucleated RBC Nucleated RBC % (auto) Absolute Retic Percent Retic Immature Retic Fraction Retic Hgb Equivalent VBG pH 7.31 L VBG pCO2 31 VBG pO2 86 VBG HCO3 16 L VBG O2 Saturation Not Reportable VBG Base Excess -8.8 Anion Gap 17 Estim Creat Clear Calc 10.4 Estimated GFR 7 Random Glucose 109 Estimat Average Glucose Hemoglobin A1c % Uric Acid Calcium 8.1 L Phosphorus Magnesium Iron TIBC % Saturation Unsat Iron Binding Total Bilirubin Direct Bilirubin AST ALT Alkaline Phosphatase Lactate Dehydrogenase C-Reactive Protein B-Natriuretic Peptide Total Protein Albumin Triglycerides Cholesterol LDL Cholesterol, Calc HDL Cholesterol Lipase TSH PTH Intact Urine Color Urine Appearance Urine pH Ur Specific [place] Urine Protein Urine Glucose (UA) Urine Ketones Urine Blood Urine Nitrite Ur Leukocyte Esterase Urine RBC Urine WBC Ur Squamous Epith Cells Urine Bacteria Hyaline Casts Ur Random Sodium Urine Creatinine Stool Occult Blood NEGATIVE Rheumatoid Factor Blood Type Antibody Screen Crossmatch 04/18/25 04/18/25 00:58 05:17 MCV MCH MCHC RDW Plt Count MPV Immature Gran % (Auto) Neut % (Auto) Lymph % (Auto) [place] % (Auto) Eos % (Auto) Baso % (Auto) Lymph # (Auto) [place] # (Auto) Eos # (Auto) Baso # (Auto) Abs Immat Gran (auto) Absolute Neuts (auto) Absolute Nucleated RBC Nucleated RBC % (auto) Absolute Retic Percent Retic Immature Retic Fraction Retic Hgb Equivalent VBG pH VBG pCO2 VBG pO2 VBG HCO3 VBG O2 Saturation VBG Base Excess Anion Gap 17 Estim Creat Clear Calc 10.4 Estimated GFR 7 Random Glucose 122 H Estimat Average Glucose 126 Hemoglobin A1c % 6.0 Uric Acid Calcium 8.1 L Phosphorus Magnesium 2.4 Iron TIBC % Saturation Unsat Iron Binding Total Bilirubin Direct Bilirubin AST ALT Alkaline Phosphatase Lactate Dehydrogenase C-Reactive Protein B-Natriuretic Peptide Total Protein Albumin Triglycerides 74 Cholesterol 109 LDL Cholesterol, Calc 56 HDL Cholesterol 39 L Lipase TSH PTH Intact 311.7 H Urine Color Urine Appearance Urine pH Ur Specific [place] Urine Protein Urine Glucose (UA) Urine Ketones Urine Blood Urine Nitrite Ur Leukocyte Esterase Urine RBC Urine WBC Ur Squamous Epith Cells Urine Bacteria Hyaline Casts Ur Random Sodium Urine Creatinine Stool Occult Blood Rheumatoid Factor < 13.0 Blood Type O Positive Antibody Screen NEGATIVE Crossmatch See Detail Assessment and Plan (1) SACHIN (acute kidney injury): Status: Acute (2) Anemia: Status: Acute Plan 69/m with no known pmh who presented with bilateral hand pain and routine labs showing signficantly high creatine of 7 and hemoglobin of 6, K of 5.4 Acute kidney injury associated with normal anion gap metabolic acidosis and hyperkalemia (5.5). No known prior values. Presenation appears chronic K is normal, Creatine is stable at 6, for Biopsy today, Nephrology following. Additional immunological testing pending Uncontrolled hypertension. BP is better with Norvasc Metabolic acidosis d/t above, resolved. Anemia, likely secondary to underlying chronic kidney disease/above. check occult blood, check iron, folate and b12 Bilateral hand pain and swelling. Bilateral hand x-ray showed early/mild non erosive arthritic changes Check uric acid, rheumatoid factor, LILIA test, CCP Ab and anti-DS DNA. Pain control with oxycodone. uric acid sligtly high. Ortho Incidental large uncomplicated inclusion cyst, medial right upper thigh. No history of recent trauma and not taking blood thinner. (less likely liquefied hematoma) but history of inguinal hernia repair surgery (pt does not recall which side, this happened long time ago. No symptoms reported. Observe for now DVT prophylaxis: SCDs Code status: Full Quality Stroke Does the patient have a stroke diagnosis?: No VTE Prior VTE?: No VTE Risk Level:: Medical - moderate - high VTE Device Contraindication: N/A - Device Ordered VTE Drug Contraindication: Treatment Not Indicated
[2025-04-18] MEDS: Sevelamer Carbonate Tablet 800 MG TABLET PO ×3 (09:06→17:05)
--- NOTE | 2025-04-18 09:45 | PM.CNNEP ---
History of Present Illness Reason for Consult Consult date: 04/18/25 Chief Complaint Chief complaint: acute kidney injury, metabolic acidosis History of Present Illness Narrative: 69 y/o male with no known medical history, does not get regular medical checks or treatment. Presented 04/17 wtih bilateral hand swelling and pain x2 weeks. Nephrology consulted for SACHIN. Creatinine 7.15 on 04/17, 7 a.m. no baseline labs available- patient reports does not get routine lab work. Urine output 325mL patient reports he is able to urinate without difficulty or discomfort PTH 311, calcium low 8.1. abd/pelvis CT - no obstruction or stones. Prostamegaly with moderate mass effect in urinary bladder base. patient reports he does not have any known personal or family medical history to report, other than neck pain a few years back after a fall. He denies alcohol/drug use. Reports former smoker. He was taking He has a difficult time providing history as he reports his left hand is in a lot of pain. Also reports some nausea intermittently that started this morning. Review of Systems Constitutional: Reports no additional constitutional complaints Cardiovascular: Denies chest pain, Denies leg edema, Denies lightheadedness and Denies dyspnea Respiratory: Denies dyspnea Gastrointestinal: Denies abdominal pain, Denies constipation, Denies diarrhea, Reports nausea and Denies vomiting Genitourinary: Denies hematuria, Denies oliguria, Denies difficulty urinating, Denies dysuria and Denies flank pain Musculoskeletal: Reports arthralgias (left thumb pain, hand pain) and Reports joint swelling Skin/Breast: Denies rash Denies tremor(s) PMFSH Social History Social History Patient Tobacco Use Status: Former Tobacco user Advance Directives: No Advance Directives Information Provided: No Do you have a plan to hurt others: No Plan Meds Allergies Allergy/AdvReac Type Severity Reaction Status Date / Time No Known Allergies Allergy Verified 04/17/25 08:46 Active Medications: Current Medications Acetaminophen (Acetaminophen 325 Mg Tablet) 975 mg PO Q6H PRN PRN Reason: Pain, Mild 1-3,fever,headache Amlodipine Besylate (Amlodipine Besylate 5 Mg Tablet) 5 mg PO DAILY [facility]; Protocol Last Admin: 04/18/25 09:06 Dose: 5 mg Hydralazine HCl (Hydralazine Hcl 20 Mg/Ml Vial) 10 mg IVPUSH Q6H PRN; Protocol PRN Reason: SBP > 160 Sodium Bicarbonate 150 meq/ (Dextrose) 1,000 mls @ 100 mls/hr IV .Q10H [facility] Last Admin: 04/18/25 07:31 Dose: 100 mls/hr Oxycodone HCl (Oxycodone Hcl Immed Release 5 Mg Tablet) 5 mg PO Q4H PRN PRN Reason: hands pain Last Admin: 04/18/25 09:05 Dose: 5 mg Pantoprazole Sodium (Pantoprazole Sodium 40 Mg/10 Ml Vial) 40 mg IVPUSH BID@0630,1630 [facility] Last Admin: 04/18/25 06:20 Dose: 40 mg Sevelamer Carbonate (Sevelamer Carbonate Tablet 800 Mg Tablet) 800 mg PO TIDWM [facility] Last Admin: 04/18/25 09:06 Dose: 800 mg Sodium Chloride (0.9 % Sodium Chloride Flush 3 Ml Syringe) 3 ml IVFLUSH QSHIFT [facility] Last Admin: 04/18/25 07:32 Dose: 3 ml Physical Exam Vital Signs: Last Vital Signs Temp 97.0 F 04/18/25 06:19 Pulse 61 04/18/25 06:19 Resp 12 04/18/25 06:19 BP 138/79 04/18/25 06:19 Pulse Ox 100 04/18/25 06:00 O2 Del Method Room Air 04/18/25 06:00 BMI result Body Mass Index 30.7 Const General: alert and awake Resp Effort & Inspection: normal respiratory effort and able to speak in complete sentences Auscultation: clear to auscultation bilaterally Cardio Rate: regular rate Rhythm: regular rhythm Heart sounds: S1 normal heart sound present and S2 normal heart sound present GI Palpation (GI): Soft to palpation and nontender General: Yes no CVA tenderness Back/Spine/Pelvis Back: no CVA tenderness Extrem General: Yes edema (bilateral upper extremity edema- no LE edema. ) Results Lab Results 04/18/25 00:01 04/18/25 05:17 Lab results: Chemistry 04/17/25 04/17/25 04/18/25 08:58 13:27 00:01 Sodium 139 140 140 Potassium 5.4 H 5.5 H 4.4 Carbon Dioxide 13 L 16 L BUN 123 H 116 H Creatinine 7.15 H* 7.36 H* Calcium 8.5 8.1 L Phosphorus 6.9 H 04/18/25 05:17 Sodium 140 Potassium 4.2 Carbon Dioxide 17 L BUN 110 H Creatinine 7.30 H* Calcium 8.1 L Phosphorus Hematology 04/17/25 04/17/25 04/18/25 08:58 13:28 00:01 WBC 8.0 Hgb 7.4 L 7.8 L 6.8 L* Plt Count 224 Urinalysis 04/17/25 15:21 Urine Color Yellow Urine Appearance Clear Urine pH 5.0 Ur Specific Ashley 1.010 Urine Protein 100 (2+) H Urine Glucose (UA) Negative Urine Ketones Negative Urine Blood Trace H Urine Nitrite Negative Ur Leukocyte Esterase Trace H Urine RBC 0-2 Urine WBC 0-5 Ur Squamous Epith Cells 0-2 Hyaline Casts 3-5 Urine Studies 04/17/25 15:21 Urine Creatinine 45.41 Assessment and Plan (1) SACHIN (acute kidney injury): Status: Acute Plan Appears to have an acute on chronic kidney dsease, but baseline is unknown. given anemia, proteinuria and high PTH, likely has CKD. possible etiologies for CKD include - chronic NSAID-induced nephropothy given hand swelling, need to rule out amyloidosis and other autoimmune diseases. Will get CKD workup- labs pending will do kidney biopsy to aid in diagnosis given hand swelling no indication for renal replacement at this time recommend rheumatology consult further recommendations pending evoloving data avoid nephrotoxins daily renal function and electrolyte studies. Discussed with Dr Medina. Procedures Date of Service Date of Service: 04/18/25
[2025-04-18 13:38] LABS: Anion Gap 16 (12-20); Blood Urea Nitrogen 104 mg/dL (9-16); Calcium 8.4 mg/dL (8.4-10.2); Carbon Dioxide 22 mmol/L (22-29); Chloride 107 mmol/L (96-108); Creatinine Clr Calc Pharmacy 11.2; Estimated Glomerular Filt Rate 8; Potassium 4.1 mmol/L (3.3-5.1); Sodium 141 mmol/L (135-145)
[2025-04-18 14:40] LABS: Hematocrit 22.4 % (42.0-52.0); Hemoglobin 7.9 g/dl (14.0-18.0); Mean Corpuscular HGB Conc 35.3 g/dl (31.0-36.0); Mean Corpuscular Hemoglobin 30.7 pg (27.0-33.0); Mean Corpuscular Volume 87.2 fL (80.0-98.0); NRBC Abs Auto 0.000 X10*3/uL (0.0-0.012); NRBC Pct Auto 0.0 /100WBC (0.0-0.2); Platelet Count 192 X10*3/uL (160-400); Red Blood Count 2.57 X10*6/uL (4.60-5.80); White Blood Count 7.8 X10*3/uL (4.8-10.8)
--- NOTE | 2025-04-18 15:28 | MHC.CM.PN ---
CM MET WITH PT, AND SISTER AT BEDSIDE PT LIVES WITH HIS , DAUGHTER, DAUGHTERS , GRANDSON JULIANO AND SON. HE HAD NO SERVICES OR DME ADMINISTRATIVE SUPPORT COORDINATOR HE IS WORKING ON GETTING A NEW PT APPT WITH [facility] HE WILL COMPLETE A HCP DURING ADMISSION, BUT WANTS TO SPEAK TO PROSPECTIVE AGENTS FIRST IMM DELIVERED DCP: HOME WITH A REFERRAL TO [facility] TO TRANSPORT
--- NOTE | 2025-04-18 16:54 | P.CONOP_ITS ---
History of Present Illness HPI Consult date: 04/18/25 Chief complaint: acute kidney injury, metabolic acidosis Narrative: Patient is a 69-year-old male who is admitted to the hospital for acute kidney injury and metabolic acidosis Patient reports a 2 to three-week history of bilateral hand pain, originally started in the right, but is now worse in the left Denies any redness, injury, or other cause of his pain Patient does report that both of his hands are slightly swollen Denies numbness or tingling No other acute complaints or concerns at this time. Review of Systems 2 Review of Systems: Yes all other systems are reviewed and are negative [facility] Social History Social History Household Members: Spouse and Family Housing: House Do you presently have visiting nurse or other home services: No Patient Tobacco Use Status: Former Tobacco user service: No Meds Allergies Allergy/AdvReac Type Severity Reaction Status Date / Time No Known Allergies Allergy Verified 04/17/25 08:46 Active Medications: Current Medications Acetaminophen (Acetaminophen 325 Mg Tablet) 975 mg PO Q6H PRN PRN Reason: Pain, Mild 1-3,fever,headache Amlodipine Besylate (Amlodipine Besylate 5 Mg Tablet) 5 mg PO DAILY [facility]; Protocol Last Admin: 04/18/25 09:06 Dose: 5 mg Hydralazine HCl (Hydralazine Hcl 20 Mg/Ml Vial) 10 mg IVPUSH Q6H PRN; Protocol PRN Reason: SBP > 160 Sodium Bicarbonate 150 meq/ (Dextrose) 1,000 mls @ 100 mls/hr IV .Q10H [facility] Last Admin: 04/18/25 07:31 Dose: 100 mls/hr Ondansetron HCl (Ondansetron Hcl 4 Mg/2 Ml Vial) 4 mg IVPUSH Q8H PRN PRN Reason: Nausea and Vomiting Last Admin: 04/18/25 15:18 Dose: 4 mg Oxycodone HCl (Oxycodone Hcl Immed Release 5 Mg Tablet) 5 mg PO Q4H PRN PRN Reason: hands pain Last Admin: 04/18/25 15:18 Dose: 5 mg Pantoprazole Sodium (Pantoprazole Sodium 40 Mg/10 Ml Vial) 40 mg IVPUSH BID@0630,1630 [facility] Last Admin: 04/18/25 06:20 Dose: 40 mg Sevelamer Carbonate (Sevelamer Carbonate Tablet 800 Mg Tablet) 800 mg PO TIDWM [facility] Last Admin: 04/18/25 14:04 Dose: 800 mg Sodium Chloride (0.9 % Sodium Chloride Flush 3 Ml Syringe) 3 ml IVFLUSH QSHIFT [facility] Last Admin: 04/18/25 07:32 Dose: 3 ml Physical Exam 2 Vital Signs: Vital Signs: Last Vital Signs Temp 98 F 04/18/25 14:40 Pulse 74 04/18/25 14:40 Resp 16 04/18/25 14:40 BP 151/72 H 04/18/25 14:40 Pulse Ox 96 04/18/25 14:40 O2 Del Method Room Air 04/18/25 14:40 BMI result Body Mass Index 30.7 Extrem: Other: Patient is alert, oriented, and in no acute distress. Neuro: Normal sensation of the tips of all digits of the bilateral hands at this time Vascular: Cap refill brisk Pain: Pain with range of motion of the digits of the left hand, minimal discomfort without of the right Tenderness to palpation diffusely of the MCP joints of the left hand, reports that this pain is mild ROM: Patient is able to make a closed fist with the right hand, is able to get close to making a closed fist with the left hand Patient is able to fully extend the digits of bilateral hands fully Skin: No lacerations or abrasions. General: Mild bilateral edema of the hands noted No ecchymosis, erythema, or evidence of infection. Psych: Appears grossly normal Affect normal Attitude cooperative Results Labs 04/18/25 14:32 04/18/25 13:13 Labs: Abnormal lab results 04/18/25 04/18/25 04/18/25 Range/Units 00:01 00:06 00:58 RBC (4.60-5.80) X10*6/uL Hgb 6.8 L* (14.0-18.0) g/dl Hct 19.7 L* (42.0-52.0) % MPV (9.4-12.4) fL VBG pH 7.31 L (7.32-7.43) VBG HCO3 16 L (22-26) mmol/L Chloride 111 H (96-108) mmol/L Carbon Dioxide 16 L (22-29) mmol/L BUN 116 H (9-16) mg/dL Creatinine 7.36 H* (0.5-1.4) mg/dL Random Glucose (60-115) mg/dL Calcium 8.1 L (8.4-10.2) mg/dL HDL Cholesterol (>40) mg/dL PTH Intact (8.7-77.1) pg/mL Crossmatch See Detail 04/18/25 04/18/25 04/18/25 Range/Units 05:17 13:13 14:32 RBC 2.57 L (4.60-5.80) X10*6/uL Hgb 7.9 L (14.0-18.0) g/dl Hct 22.4 L (42.0-52.0) % MPV 8.9 L (9.4-12.4) fL VBG pH (7.32-7.43) VBG HCO3 (22-26) mmol/L Chloride 110 H (96-108) mmol/L Carbon Dioxide 17 L (22-29) mmol/L BUN 110 H 104 H (9-16) mg/dL Creatinine 7.30 H* 6.80 H* (0.5-1.4) mg/dL Random Glucose 122 H 144 H (60-115) mg/dL Calcium 8.1 L (8.4-10.2) mg/dL HDL Cholesterol 39 L (>40) mg/dL PTH Intact 311.7 H (8.7-77.1) pg/mL Crossmatch H & H 04/17/25 04/17/25 04/18/25 Range/Units 08:58 13:28 00:01 Hgb 7.4 L 7.8 L 6.8 L* (14.0-18.0) g/dl Hct 21.4 L 23.9 L 19.7 L* (42.0-52.0) % 04/18/25 Range/Units 14:32 Hgb 7.9 L (14.0-18.0) g/dl Hct 22.4 L (42.0-52.0) % All other labs normal. Diagnostic results Wrist/Hand x-ray: report reviewed and image reviewed Assessment and Plan (1) Arthritis of both hands: Status: Acute Plan 1. Osteoarthritis of bilateral hands Patient is educated about this condition Patient is educated about the treatment options available OT ordered for range of motion and gentle strengthening of bilateral hands while patient is admitted to the hospital Patient is educated on pain management measures, such as rest, ice, elevation Patient should follow-up with us outpatient upon discharge from the hospital for discussion of further treatment options Procedures Date of Service Date of Service: 04/18/25
[2025-04-19] VITALS (21 sets, daily range): BP systolic 137–173; BP diastolic 63–98; PULSE 60–82; RESP 12–18; TEMP 36–37.1; O2SAT 94–100
[2025-04-19] MEDS: oxyCODONE HCl Immed Release 5 MG TABLET PO ×2 (01:34→10:42)
[2025-04-19] MEDS: Sodium Bicarbonate 8.4% 150 MEQ in Dextrose 5 % 850 ML 100 MEQ IV (03:53)
--- NOTE | 2025-04-19 06:20 | CONS_ITS ---
DATE OF SERVICE: 04/18/2025 REFERRING PHYSICIAN: Dr. Saucedo REASON FOR CONSULTATION: Anemia. HISTORY OF PRESENT ILLNESS: Patient is a pleasant 69-year-old man who was admitted to the hospital after presenting to the emergency room with hand pain and swelling. This has been present for approximately 2 weeks and he has used a variety of medications at home including NSAIDs such as diclofenac and ibuprofen as well as some prednisone, which his was taking and he used. He reports no black stools and no blood in his stools. In the emergency department, he was evaluated with laboratory studies documenting a hematocrit of 21.4, which dropped to 19.7 following hydration. Stool occult blood testing was negative. He received 1 unit of packed red blood cells with improvement in his hematocrit to 22.4. He denies any prior history of peptic ulcer disease. He has not had upper endoscopy. He has no complaints of reflux and does not take anything chronically for his stomach. He did undergo colonoscopy approximately 10 or more years ago with removal of a small tubular adenoma, but has not had followup since that time. He has not seen a physician for many years. He has no known history of renal failure. PAST MEDICAL HISTORY: 1. Colonoscopy with colon polyps as above. 2. Recent hand swelling and pain. He denies other medical or surgical illnesses. CURRENT MEDICATIONS: Current medication list is reviewed in the chart. ALLERGIES: THERE ARE NONE REPORTED. FAMILY HISTORY: Is negative for GI malignancy. SOCIAL HISTORY: There is no current tobacco, alcohol, or substance abuse. REVIEW OF SYSTEMS: SKIN: No pruritus. HEENT: Negative. CARDIOPULMONARY: No shortness of breath or chest pain. GASTROINTESTINAL: As above. GENITOURINARY: Negative. NEUROPSYCHIATRIC: Negative. PHYSICAL EXAMINATION: GENERAL: Shows a pleasant male, sitting comfortably on a stretcher. He does complain of nausea. His is present. VITAL SIGNS: Reviewed in electronic medical record and are stable. SKIN: Anicteric. HEENT: Shows no scleral icterus. NECK: Without lymphadenopathy or thyromegaly. LUNGS: Clear. HEART: Shows regular rate and rhythm. S1, S2. No murmur. ABDOMEN: Soft. There is no epigastric tenderness to palpation. Bowel sounds are normal. There is no guarding or rebound. EXTREMITIES: Show some trace edema. LABORATORY DATA AND IMAGING STUDIES: Reviewed. IMPRESSION AND PLAN: Anemia. This is likely related to his recent kidney issues. There does not appear to be any evidence of active GI bleeding at this time. He has been using a substantial amount of NSAIDs, which may have exacerbated some of his kidney problems and could cause some gastric irritation. Therefore, I agree with treating him empirically with a proton pump inhibitor. If he does show signs of bleeding, then I would recommend upper endoscopy, but I am not recommending this at this time. His diet can be advanced as tolerated and he can be switched to an oral proton pump inhibitor such as omeprazole 40 mg daily. He will need outpatient followup for his prior history of polyps, but I would recommend his acute issues with his renal failure and metabolic problems to resolve prior to this. Thanks for asking me to see him. I will follow him in the hospital with you. MD KHADIJAH Fierro/AMOS / [phone]
[2025-04-19 06:31] LABS: Hematocrit 22.4 % (42.0-52.0); Hemoglobin 7.5 g/dl (14.0-18.0); Mean Corpuscular HGB Conc 33.5 g/dl (31.0-36.0); Mean Corpuscular Hemoglobin 29.9 pg (27.0-33.0); Mean Corpuscular Volume 89.2 fL (80.0-98.0); NRBC Abs Auto 0.000 X10*3/uL (0.0-0.012); NRBC Pct Auto 0.0 /100WBC (0.0-0.2); Platelet Count 191 X10*3/uL (160-400); Red Blood Count 2.51 X10*6/uL (4.60-5.80); White Blood Count 6.7 X10*3/uL (4.8-10.8)
[2025-04-19 06:38] LABS: INTERNATIONAL NORM RATIO 1.0 (0.9-1.1); Prothrombin Time 11.2 SEC (10.9-12.4)
[2025-04-19 07:19] LABS: Anion Gap 17 (12-20); Blood Urea Nitrogen 91 mg/dL (9-16); Calcium 8.3 mg/dL (8.4-10.2); Carbon Dioxide 28 mmol/L (22-29); Chloride 103 mmol/L (96-108); Creatinine Clr Calc Pharmacy 11.3; Estimated Glomerular Filt Rate 8; Potassium 3.6 mmol/L (3.3-5.1); Sodium 144 mmol/L (135-145)
[2025-04-19] MEDS: 0.9 % Sodium Chloride Flush 3 ML SYRINGE IVFLUSH ×3 (08:04→22:03)
[2025-04-19 08:44] LABS: Protein/Creatinine Ratio, Ur 2.98 (<0.2); Total Protein Urine Random 196 mg/dL (<12)
--- NOTE | 2025-04-19 09:14 | P.PNNP_ITS ---
Subjective Subjective Date of Service: 04/19/25 Interval history: following for SACHIN with unknown baseline renal function creatinine down to 6.75 this a.m., down from 7.36 yesterday morning plan for renal biopsy today patient reports ongoing hand swelling and intermittent, severe pain in left hand. Continues with intermittent nausea. He says he is voiding urine regularly. Denies new symptoms, concerns. Physical Exam 2 Vital Signs: Vital Signs: Last Vital Signs Temp 96.8 F 04/19/25 09:09 Pulse 60 04/19/25 09:09 Resp 17 04/19/25 09:09 BP 151/98 H 04/19/25 09:09 Pulse Ox 98 04/19/25 09:09 O2 Del Method Room Air 04/19/25 09:09 BMI result Body Mass Index 30.7 Const: General: alert and awake Resp: Effort & Inspection: normal respiratory effort and able to speak in complete sentences Auscultation: clear to auscultation bilaterally Cardio: Rate: regular rate Rhythm: regular rhythm Heart sounds: S1 normal heart sound present and S2 normal heart sound present GI: Palpation (GI): Soft to palpation and nontender : General: Yes no CVA tenderness Back/Spine/Pelvis: Back: no CVA tenderness Skin: Rashes: no rashes Extrem: General: Yes edema (+2 BUE edema, trace pitting BLE edema) Objective Data Labs 04/19/25 05:55 04/19/25 05:55 Labs: Laboratory Results - last 24 hr 04/18/25 04/18/25 04/18/25 00:58 13:13 14:32 WBC 7.8 RBC 2.57 L Hgb 7.9 L Hct 22.4 L MCV 87.2 MCH 30.7 MCHC 35.3 RDW 14.2 Plt Count 192 MPV 8.9 L Absolute Nucleated RBC 0.000 Nucleated RBC % (auto) 0.0 PT INR Sodium 141 Potassium 4.1 Chloride 107 Carbon Dioxide 22 Anion Gap 16 BUN 104 H Creatinine 6.80 H* Estim Creat Clear Calc 11.2 Estimated GFR 8 Random Glucose 144 H Calcium 8.4 Phosphorus U Random Total Protein Urine Creatinine Protein/Creatinin Ratio Blood Type O Positive Antibody Screen NEGATIVE Crossmatch See Detail 04/19/25 04/19/25 05:55 08:22 WBC 6.7 RBC 2.51 L Hgb 7.5 L Hct 22.4 L MCV 89.2 MCH 29.9 MCHC 33.5 RDW 14.3 Plt Count 191 MPV 9.5 Absolute Nucleated RBC 0.000 Nucleated RBC % (auto) 0.0 PT 11.2 INR 1.0 Sodium 144 Potassium 3.6 Chloride 103 Carbon Dioxide 28 Anion Gap 17 BUN 91 H Creatinine 6.75 H* Estim Creat Clear Calc 11.3 Estimated GFR 8 Random Glucose 120 H Calcium 8.3 L Phosphorus 5.5 H U Random Total Protein 196 H Urine Creatinine 65.79 Protein/Creatinin Ratio 2.98 H Blood Type Antibody Screen Crossmatch Procedures Date of Service Date of Service: 04/19/25 Assessment & Plan Assessment and plan (1) SACHIN (acute kidney injury): Status: Acute (2) Bilateral hand swelling: Status: Acute Plan Appears to have an acute on chronic kidney dsease, but baseline is unknown. creatinine has had some improvement, though kidney function remains significantly impaired. given anemia, proteinuria and high PTH, likely has CKD. ALso has high urine protein/creatinine ratio almost 3 grams. possible etiologies for CKD include - chronic NSAID-induced nephropothy given hand swelling, need to rule out amyloidosis and other autoimmune diseases. Will get CKD workup- labs pending will do kidney biopsy to aid in diagnosis given hand swelling - plan for biopsy today per IR discontinue sodium bicarb IVF, as urine output is low despite fluids, has new LE edema. no indication for renal replacement at this time *recommend avoiding unnecessary antigenic exposure with blood transfusions due to potential for need for renal transplant in the future. further recommendations pending evoloving data avoid nephrotoxins daily renal function and electrolyte studies. Discussed with Dr Medina. Time Spent With Patient Time: Total time managing care of this patient today ____ minutes. Progress Note: Quality Stroke Does the patient have a stroke diagnosis?: No
[2025-04-19 10:03] LABS: EOS Counted 0 CELLS; EOS QC POS YES; EOS Stain Quality OK YES; WBC, Counted 100 CELLS
[2025-04-19] MEDS: Sevelamer Carbonate Tablet 800 MG TABLET PO (16:52)
--- NOTE | 2025-04-19 17:23 | PC.NURSE ---
Pt's took tablet and pants home.
[2025-04-20] MEDS: oxyCODONE HCl Immed Release 5 MG TABLET PO (02:00)
[2025-04-20 04:00] VITALS: BP 157/71; PULSE 65; RESP 18; TEMP 36.8; O2SAT 94
[2025-04-20 05:49] LABS: Hematocrit 23.6 % (42.0-52.0); Hemoglobin 8.2 g/dl (14.0-18.0); Mean Corpuscular HGB Conc 34.7 g/dl (31.0-36.0); Mean Corpuscular Hemoglobin 31.1 pg (27.0-33.0); Mean Corpuscular Volume 89.4 fL (80.0-98.0); NRBC Abs Auto 0.000 X10*3/uL (0.0-0.012); NRBC Pct Auto 0.0 /100WBC (0.0-0.2); Platelet Count 160 X10*3/uL (160-400); Red Blood Count 2.64 X10*6/uL (4.60-5.80); White Blood Count 6.9 X10*3/uL (4.8-10.8)
[2025-04-20 06:08] LABS: Anion Gap 15 (12-20); Blood Urea Nitrogen 76 mg/dL (9-16); Calcium 8.4 mg/dL (8.4-10.2); Carbon Dioxide 28 mmol/L (22-29); Chloride 104 mmol/L (96-108); Creatinine Clr Calc Pharmacy 11.7; Estimated Glomerular Filt Rate 9; Potassium 4.0 mmol/L (3.3-5.1); Sodium 143 mmol/L (135-145)
[2025-04-20 06:54] VITALS: BP 160/76; PULSE 68; RESP 17; TEMP 36.6; O2SAT 95
[2025-04-20] MEDS: Sevelamer Carbonate Tablet 800 MG TABLET PO ×3 (08:36→16:53)
[2025-04-20] MEDS: 0.9 % Sodium Chloride Flush 3 ML SYRINGE IVFLUSH ×2 (08:37→16:53)
--- NOTE | 2025-04-20 08:56 | P.PNIM_ITS ---
Subjective Subjective Date of Service: 04/20/25 Interval History: f/u on renal failure, likely chronic biopsy was cancelled yesterday d/t SBP> 150 His complaning of hand pain Physical Exam 2 Vital Signs: Vital Signs: Last Vital Signs Temp 98 F 04/20/25 06:54 Pulse 68 04/20/25 06:54 Resp 17 04/20/25 06:54 BP 160/76 H 04/20/25 06:54 Pulse Ox 95 04/20/25 06:54 O2 Del Method Room Air 04/20/25 06:54 O2 Flow Rate 2 04/19/25 13:30 BMI result Body Mass Index 30.7 Const: Other: General: AO X 3, no acute distress Resp: CTA bilateral CVS: S1,S2,RRR GI: +BS, NT, no distention Skin: No rash Ext: mild swelling in the left hand, no redness, Neuro: motor grossly intact Psych: appropriate affect Objective Data Active Medications Acetaminophen (Acetaminophen 325 Mg Tablet) 975 mg PO Q6H PRN PRN Reason: Pain, Mild 1-3,fever,headache Amlodipine Besylate (Amlodipine Besylate 10 Mg Tablet) 10 mg PO DAILY [facility]; Protocol Amlodipine Besylate (Amlodipine Besylate 5 Mg Tablet) 5 mg PO ONCE ONE Stop: 04/20/25 09:01 Hydralazine HCl (Hydralazine Hcl 20 Mg/Ml Vial) 10 mg IVPUSH Q6H PRN; Protocol PRN Reason: SBP > 160 Ondansetron HCl (Ondansetron Hcl 4 Mg/2 Ml Vial) 4 mg IVPUSH Q8H PRN PRN Reason: Nausea and Vomiting Last Admin: 04/18/25 15:18 Dose: 4 mg Documented By: KYLER Oxycodone HCl (Oxycodone Hcl Immed Release 5 Mg Tablet) 5 mg PO Q4H PRN PRN Reason: hands pain Last Admin: 04/20/25 02:00 Dose: 5 mg Documented By: BILLIE Pantoprazole Sodium (Pantoprazole Sodium 40 Mg/10 Ml Vial) 40 mg IVPUSH BID@0630,1630 [facility] Last Admin: 04/20/25 06:02 Dose: 40 mg Documented By: BILLIE Prednisone (Prednisone 1 Mg Tablet) 4 mg PO DAILY [facility] Sevelamer Carbonate (Sevelamer Carbonate Tablet 800 Mg Tablet) 800 mg PO TIDWM [facility] Last Admin: 04/20/25 08:36 Dose: 800 mg Documented By: MARIALUISA Sodium Chloride (0.9 % Sodium Chloride Flush 3 Ml Syringe) 3 ml IVFLUSH QSHIFT [facility] Last Admin: 04/20/25 08:37 Dose: 3 ml Documented By: MARIALUISA Labs 04/20/25 05:25 04/20/25 05:25 Labs: Laboratory Results - last 24 hr 04/18/25 04/19/25 04/19/25 00:58 05:55 08:22 MCV MCH MCHC RDW Plt Count MPV Absolute Nucleated RBC Nucleated RBC % (auto) Anion Gap Estim Creat Clear Calc Estimated GFR Random Glucose Calcium C-React Prot High Sens 4.4 H Urine Eosinophils % 0.0 Crossmatch See Detail 04/20/25 05:25 MCV 89.4 MCH 31.1 MCHC 34.7 RDW 14.5 Plt Count 160 MPV 9.2 L Absolute Nucleated RBC 0.000 Nucleated RBC % (auto) 0.0 Anion Gap 15 Estim Creat Clear Calc 11.7 Estimated GFR 9 Random Glucose 91 Calcium 8.4 C-React Prot High Sens Urine Eosinophils % Crossmatch Assessment and Plan (1) SACHIN (acute kidney injury): Status: Acute (2) Anemia: Status: Acute Plan 69/m with no known pmh who presented with bilateral hand pain and routine labs showing signficantly high creatine of 7 and hemoglobin of 6, K of 5.4 Acute kidney injury associated with normal anion gap metabolic acidosis and hyperkalemia (5.5). No known prior values. Presenation appears chronic K is normal, Creatine is stable at 6. Reatempt Biopsy today, Nephrology following. Additional immunological testing pending Uncontrolled hypertension. continue Norvasc, increase to 10 Metabolic acidosis d/t above, resolved. Anemia, likely secondary to underlying chronic kidney disease/above. check occult blood, check iron, folate and b12 Bilateral hand pain and swelling. Bilateral hand x-ray showed early/mild non erosive arthritic changes Check uric acid, rheumatoid factor, LILIA test, CCP Ab and anti-DS DNA. Pain control with oxycodone. uric acid sligtly high. Ortho Incidental large uncomplicated inclusion cyst, medial right upper thigh. No history of recent trauma and not taking blood thinner. (less likely liquefied hematoma) but history of inguinal hernia repair surgery (pt does not recall which side, this happened long time ago. No symptoms reported. Observe for now DVT prophylaxis: SCDs Code status: Full Quality Stroke Does the patient have a stroke diagnosis?: No VTE Prior VTE?: No VTE Risk Level:: Medical - moderate - high VTE Device Contraindication: N/A - Device Ordered VTE Drug Contraindication: Treatment Not Indicated
--- NOTE | 2025-04-20 09:22 | P.PNNP_ITS ---
Subjective Subjective Date of Service: 04/20/25 Interval history: following for SACHIN with unknown baseline renal function creatinine slightly lower at 6.50 this a.m. renal biopsy attempted yesterday- aborted due to blood pressure in 150s- pt reports his hands were in pain. Plan for repeat attempt at biopsy today, though patient currently refusing says he wants to wait until tomorrow. patient reports ongoing hand swelling and intermittent, severe pain in left hand. He reports he is very tired and hungry as he was NPO yesterday for potential biopsy- renal biopsy was aborted due to BP in 150s. Patient reports he will not get renal biospy today as he needs to eat and sleep- requesting it be done tomorrow. Physical Exam 2 Vital Signs: Vital Signs: Last Vital Signs Temp 98 F 04/20/25 06:54 Pulse 68 04/20/25 06:54 Resp 17 04/20/25 06:54 BP 160/76 H 04/20/25 06:54 Pulse Ox 95 04/20/25 06:54 O2 Del Method Room Air 04/20/25 06:54 O2 Flow Rate 2 04/19/25 13:30 BMI result Body Mass Index 30.7 Const: General: alert and awake Resp: Effort & Inspection: normal respiratory effort and able to speak in complete sentences Auscultation: clear to auscultation bilaterally Cardio: Rate: regular rate Rhythm: regular rhythm Heart sounds: S1 normal heart sound present and S2 normal heart sound present GI: Palpation (GI): Soft to palpation and nontender : General: Yes no CVA tenderness Back/Spine/Pelvis: Back: no CVA tenderness Skin: Rashes: no rashes Extrem: General: Yes edema (+2 BUE edema, trace pitting BLE edema) Objective Data Labs 04/20/25 05:25 04/20/25 05:25 Labs: Laboratory Results - last 24 hr 04/18/25 04/19/25 04/19/25 00:58 05:55 08:22 WBC RBC Hgb Hct MCV MCH MCHC RDW Plt Count MPV Absolute Nucleated RBC Nucleated RBC % (auto) Sodium Potassium Chloride Carbon Dioxide Anion Gap BUN Creatinine Estim Creat Clear Calc Estimated GFR Random Glucose Calcium C-React Prot High Sens 4.4 H Urine Eosinophils % 0.0 Crossmatch See Detail 04/20/25 05:25 WBC 6.9 RBC 2.64 L Hgb 8.2 L Hct 23.6 L MCV 89.4 MCH 31.1 MCHC 34.7 RDW 14.5 Plt Count 160 MPV 9.2 L Absolute Nucleated RBC 0.000 Nucleated RBC % (auto) 0.0 Sodium 143 Potassium 4.0 Chloride 104 Carbon Dioxide 28 Anion Gap 15 BUN 76 H Creatinine 6.50 H* Estim Creat Clear Calc 11.7 Estimated GFR 9 Random Glucose 91 Calcium 8.4 C-React Prot High Sens Urine Eosinophils % Crossmatch Procedures Date of Service Date of Service: 04/20/25 Assessment & Plan Assessment and plan (1) SACHIN (acute kidney injury): Status: Acute (2) Bilateral hand swelling: Status: Acute Plan Appears to have an acute on chronic kidney disease, but baseline is unknown. creatinine has had some improvement, though kidney function remains significantly impaired. given anemia, proteinuria and high PTH, likely has CKD. Also has high urine protein/creatinine ratio almost 3 grams. possible etiologies for CKD include - chronic NSAID-induced nephropothy given hand swelling, need to rule out amyloidosis and other autoimmune diseases. CKD lab workup pending patient is refusing renal biopsy today. Discussed with hospital medicine- unlikely IR will be able to fit him in tomorrow. May consider outpatient biopsy though should attempt to control blood pressure and get biospy done as inpatient given severity of kidney injury/disease and patient who is not likely to follow up as outpatient. no indication for renal replacement at this time further recommendations pending evolving data avoid nephrotoxins daily renal function and electrolyte studies. Discussed with Dr Medina. Time Spent With Patient Time: Total time managing care of this patient today ____ minutes. Progress Note: Quality Stroke Does the patient have a stroke diagnosis?: No
[2025-04-20 12:00] VITALS: BP 129/58; PULSE 71; RESP 16; TEMP 36.6; O2SAT 93
[2025-04-20 15:08] VITALS: BP 144/68; PULSE 81; RESP 18; TEMP 36.7; O2SAT 94
--- NOTE | 2025-04-20 15:57 | MHC.CM.PN ---
PER ROUNDS PT PT TO GET A BIOPSY TODAY
[2025-04-20 19:45] VITALS: BP 124/68; PULSE 69; RESP 18; TEMP 37.2; O2SAT 98
[2025-04-20 23:29] VITALS: BP 165/56; PULSE 72; RESP 16; TEMP 36.8; O2SAT 98
[2025-04-21] MEDS: 0.9 % Sodium Chloride Flush 3 ML SYRINGE IVFLUSH ×2 (00:02→07:23)
[2025-04-21 04:00] VITALS: BP 140/65; PULSE 68; RESP 16; TEMP 36.4; O2SAT 98
[2025-04-21] MEDS: oxyCODONE HCl Immed Release 5 MG TABLET PO (06:02)
[2025-04-21 06:28] LABS: Hematocrit 23.4 % (42.0-52.0); Hemoglobin 8.1 g/dl (14.0-18.0); Mean Corpuscular HGB Conc 34.6 g/dl (31.0-36.0); Mean Corpuscular Hemoglobin 30.9 pg (27.0-33.0); Mean Corpuscular Volume 89.3 fL (80.0-98.0); NRBC Abs Auto 0.000 X10*3/uL (0.0-0.012); NRBC Pct Auto 0.0 /100WBC (0.0-0.2); Platelet Count 155 X10*3/uL (160-400); Red Blood Count 2.62 X10*6/uL (4.60-5.80); White Blood Count 6.2 X10*3/uL (4.8-10.8)
[2025-04-21 06:53] LABS: Anion Gap 15 (12-20); Blood Urea Nitrogen 75 mg/dL (9-16); Calcium 8.2 mg/dL (8.4-10.2); Carbon Dioxide 26 mmol/L (22-29); Chloride 105 mmol/L (96-108); Creatinine Clr Calc Pharmacy 12.1; Estimated Glomerular Filt Rate 9; Potassium 3.8 mmol/L (3.3-5.1); Sodium 142 mmol/L (135-145)
[2025-04-21 07:20] VITALS: BP 155/77; PULSE 67; RESP 16; TEMP 36.6; O2SAT 95
[2025-04-21 08:35] VITALS: BP 140/84
--- NOTE | 2025-04-21 09:13 | P.PNNP_ITS ---
Subjective Subjective Date of Service: 04/21/25 Interval history: following for SACHIN with unknown baseline renal function creatinine slightly lower at 6.31 this a.m. renal biopsy attempted 04/19- aborted due to blood pressure in 150s- pt reports his hands were in pain. Plan for repeat attempt at biopsy today. Patient reports he is feeling tired but otherwise well. Reports he has been urinating regularly in bathroom without this being measured- so 200mL/24hr urine output likely underestimated. Patient denies chest pain, shortness of breath, abdominal pain, flank pain, urinary symptoms, rash. reports ongoing hand swelling with intermittent pain. Physical Exam 2 Vital Signs: Vital Signs: Last Vital Signs Temp 97.9 F 04/21/25 07:20 Pulse 67 04/21/25 07:20 Resp 16 04/21/25 07:20 BP 140/84 H 04/21/25 08:35 Pulse Ox 95 04/21/25 07:20 O2 Del Method Room Air 04/21/25 07:20 O2 Flow Rate 2 04/19/25 13:30 BMI result Body Mass Index 30.7 Const: General: alert and awake Resp: Effort & Inspection: normal respiratory effort and able to speak in complete sentences Auscultation: clear to auscultation bilaterally Cardio: Rate: regular rate Rhythm: regular rhythm Heart sounds: S1 normal heart sound present and S2 normal heart sound present GI: Palpation (GI): Soft to palpation and nontender : General: Yes no CVA tenderness Back/Spine/Pelvis: Back: no CVA tenderness Skin: Rashes: no rashes Extrem: General: Yes edema (+2 BUE edema, trace pitting BLE edema) Objective Data Labs 04/21/25 05:57 04/21/25 05:57 Labs: Laboratory Results - last 24 hr 04/18/25 04/19/25 04/21/25 05:17 05:55 05:57 WBC 6.2 RBC 2.62 L Hgb 8.1 L Hct 23.4 L MCV 89.3 MCH 30.9 MCHC 34.6 RDW 14.2 Plt Count 155 L MPV 9.5 Absolute Nucleated RBC 0.000 Nucleated RBC % (auto) 0.0 Sodium Cancelled Potassium Chloride Carbon Dioxide Anion Gap BUN Creatinine Estim Creat Clear Calc Estimated GFR Random Glucose Calcium IgG Total 593 L IgA Total 27 L IgM 10 L MIL Interpretation SEE NOTE Cycl Citrul Peptide IgG <16 Double Strand DNA Ab 1 Complement C3 27 L Complement C4 4 L 04/21/25 04/21/25 04/21/25 05:57 05:57 05:57 WBC RBC Hgb Hct MCV MCH MCHC RDW Plt Count MPV Absolute Nucleated RBC Nucleated RBC % (auto) Sodium 142 Potassium Cancelled 3.8 Chloride Cancelled 105 Carbon Dioxide Cancelled Anion Gap BUN Creatinine Estim Creat Clear Calc Estimated GFR Random Glucose Calcium IgG Total IgA Total IgM MIL Interpretation Cycl Citrul Peptide IgG Double Strand DNA Ab Complement C3 Complement C4 04/21/25 04/21/25 04/21/25 05:57 05:57 05:57 WBC RBC Hgb Hct MCV MCH MCHC RDW Plt Count MPV Absolute Nucleated RBC Nucleated RBC % (auto) Sodium Potassium Chloride Carbon Dioxide 26 Anion Gap Cancelled 15 BUN Cancelled 75 H Creatinine Cancelled Estim Creat Clear Calc Estimated GFR Random Glucose Calcium IgG Total IgA Total IgM MIL Interpretation Cycl Citrul Peptide IgG Double Strand DNA Ab Complement C3 Complement C4 04/21/25 04/21/25 04/21/25 05:57 05:57 05:57 WBC RBC Hgb Hct MCV MCH MCHC RDW Plt Count MPV Absolute Nucleated RBC Nucleated RBC % (auto) Sodium Potassium Chloride Carbon Dioxide Anion Gap BUN Creatinine 6.31 H* Estim Creat Clear Calc Cancelled 12.1 Estimated GFR Cancelled 9 Random Glucose Cancelled Calcium IgG Total IgA Total IgM MIL Interpretation Cycl Citrul Peptide IgG Double Strand DNA Ab Complement C3 Complement C4 04/21/25 04/21/25 05:57 05:57 WBC RBC Hgb Hct MCV MCH MCHC RDW Plt Count MPV Absolute Nucleated RBC Nucleated RBC % (auto) Sodium Potassium Chloride Carbon Dioxide Anion Gap BUN Creatinine Estim Creat Clear Calc Estimated GFR Random Glucose 91 Calcium Cancelled 8.2 L IgG Total IgA Total IgM MIL Interpretation Cycl Citrul Peptide IgG Double Strand DNA Ab Complement C3 Complement C4 Procedures Date of Service Date of Service: 04/21/25 Assessment & Plan Assessment and plan (1) SACHIN (acute kidney injury): Status: Acute (2) Bilateral hand swelling: Status: Acute Plan Appears to have an acute on chronic kidney disease, but baseline is unknown. creatinine has had some incremental improvement, though kidney function remains significantly impaired. given anemia, proteinuria and high PTH, likely has CKD. Also has high urine protein/creatinine ratio almost 3 grams. possible etiologies for CKD include - chronic NSAID-induced nephropothy given hand swelling, need to rule out amyloidosis and other autoimmune diseases. CKD lab workup pending recommend urgent renal biopsy while admitted due to severity of renal disfunction. no indication for renal replacement at this time. Discussion today with patient regarding his significant kidney impairment and the importance of following up with kidney doctor as outpatient in order to continue care once he leaves the hospital. avoid nephrotoxins daily renal function and electrolyte studies. Discussed with Dr Medina. Time Spent With Patient Time: Total time managing care of this patient today ____ minutes. Progress Note: Quality Stroke Does the patient have a stroke diagnosis?: No
--- NOTE | 2025-04-21 09:34 | HO.PM.IMPN ---
Subjective Subjective Date of Service: 04/21/25 Interval History: f/u on renal failure, likely chronic biopsy was cancelled yesterday d/t scheduling issues Physical Exam Vital Signs: Vital Signs: Last Vital Signs Temp 97.9 F 04/21/25 07:20 Pulse 67 04/21/25 07:20 Resp 16 04/21/25 07:20 BP 140/84 H 04/21/25 08:35 Pulse Ox 95 04/21/25 07:20 O2 Del Method Room Air 04/21/25 07:20 O2 Flow Rate 2 04/19/25 13:30 BMI result Body Mass Index 30.7 Const: Other: General: AO X 3, no acute distress Resp: CTA bilateral CVS: S1,S2,RRR GI: +BS, NT, no distention Skin: No rash Ext: mild swelling in the left hand, no redness, Neuro: motor grossly intact Psych: appropriate affect Objective Data Active Medications Acetaminophen (Acetaminophen 325 Mg Tablet) 975 mg PO Q6H PRN PRN Reason: Pain, Mild 1-3,fever,headache Amlodipine Besylate (Amlodipine Besylate 10 Mg Tablet) 10 mg PO DAILY [facility]; Protocol Last Admin: 04/21/25 07:21 Dose: 10 mg Documented By: JERRY Hydralazine HCl (Hydralazine Hcl 20 Mg/Ml Vial) 10 mg IVPUSH Q6H PRN; Protocol PRN Reason: SBP > 160 Labetalol HCl (Labetalol Hcl 100 Mg Tablet) 100 mg PO BID [facility]; Protocol Last Admin: 04/21/25 07:30 Dose: 100 mg Documented By: JERRY Ondansetron HCl (Ondansetron Hcl 4 Mg/2 Ml Vial) 4 mg IVPUSH Q8H PRN PRN Reason: Nausea and Vomiting Last Admin: 04/18/25 15:18 Dose: 4 mg Documented By: KYLER Oxycodone HCl (Oxycodone Hcl Immed Release 5 Mg Tablet) 5 mg PO Q4H PRN PRN Reason: hands pain Last Admin: 04/21/25 06:02 Dose: 5 mg Documented By: ONEIL Prednisone (Prednisone 1 Mg Tablet) 4 mg PO DAILY [facility] Last Admin: 04/20/25 10:17 Dose: 4 mg Documented By: MARIALUISA Sevelamer Carbonate (Sevelamer Carbonate Tablet 800 Mg Tablet) 800 mg PO TIDWM [facility] Last Admin: 04/21/25 08:49 Dose: Not Given Documented By: JERRY Non-Admin Reason: NPO Sodium Chloride (0.9 % Sodium Chloride Flush 3 Ml Syringe) 3 ml IVFLUSH QSHIFT [facility] Last Admin: 04/21/25 07:23 Dose: 3 ml Documented By: JERRY Labs 04/21/25 05:57 04/21/25 05:57 Labs: Laboratory Results - last 24 hr 04/18/25 04/19/25 04/21/25 05:17 05:55 05:57 MCV 89.3 MCH 30.9 MCHC 34.6 RDW 14.2 Plt Count 155 L MPV 9.5 Absolute Nucleated RBC 0.000 Nucleated RBC % (auto) 0.0 Anion Gap Cancelled Estim Creat Clear Calc Estimated GFR Random Glucose Calcium IgG Total 593 L IgA Total 27 L IgM 10 L MIL Interpretation SEE NOTE Cycl Citrul Peptide IgG <16 Double Strand DNA Ab 1 Complement C3 27 L Complement C4 4 L 04/21/25 04/21/25 04/21/25 05:57 05:57 05:57 MCV MCH MCHC RDW Plt Count MPV Absolute Nucleated RBC Nucleated RBC % (auto) Anion Gap 15 Estim Creat Clear Calc Cancelled 12.1 Estimated GFR Cancelled 9 Random Glucose Cancelled Calcium IgG Total IgA Total IgM MIL Interpretation Cycl Citrul Peptide IgG Double Strand DNA Ab Complement C3 Complement C4 04/21/25 04/21/25 05:57 05:57 MCV MCH MCHC RDW Plt Count MPV Absolute Nucleated RBC Nucleated RBC % (auto) Anion Gap Estim Creat Clear Calc Estimated GFR Random Glucose 91 Calcium Cancelled 8.2 L IgG Total IgA Total IgM MIL Interpretation Cycl Citrul Peptide IgG Double Strand DNA Ab Complement C3 Complement C4 Assessment and Plan (1) SACHIN (acute kidney injury): Status: Acute (2) Anemia: Status: Acute Plan 69/m with no known pmh who presented with bilateral hand pain and routine labs showing signficantly high creatine of 7 and hemoglobin of 6, K of 5.4 Acute kidney injury associated with normal anion gap metabolic acidosis and hyperkalemia (5.5). No known prior values. Presenation appears chronic K is normal, Creatine is stable at 6. Reatempt Biopsy today, Nephrology following. Additional immunological testing pending Uncontrolled hypertension, still high continue Norvasc 10, add labetalol 100 bid Metabolic acidosis d/t above, resolved. Anemia, likely d/t CKD . B12, folate ok Bilateral hand pain and swelling. Bilateral hand x-ray showed early/mild non erosive arthritic changes. Uric acid slightly high, possible gout, seen by ortho, no intervention, trial of steroid, pain is better with prednisone Incidental large uncomplicated inclusion cyst, medial right upper thigh. No history of recent trauma and not taking blood thinner. (less likely liquefied hematoma) but history of inguinal hernia repair surgery (pt does not recall which side, this happened long time ago. No symptoms reported. Observe for now DVT prophylaxis: SCDs Code status: Full Quality Stroke Does the patient have a stroke diagnosis?: No VTE Prior VTE?: No VTE Risk Level:: Medical - moderate - high VTE Device Contraindication: N/A - Device Ordered VTE Drug Contraindication: Treatment Not Indicated
--- NOTE | 2025-04-21 09:54 | PM.DS ---
DS: Providers Provider Date of Service: 04/21/25 Date of admission: 04/17/25 12:55 Date of discharge: 04/21/25 Primary care physician: Ami Almanza PA-C Consults: 04/17/25 12:59 Consult to Nephrology Routine Consulting Provider: [facility] – [place] [facility] Reason for consultation: SACHIN Has provider been notified: No 04/18/25 08:13 Consult to Gastroenterology Routine Consulting Provider: Daniel Mark Reason for consultation: anemia , concern for upper gib 04/18/25 14:10 Consult to Orthopedics Routine Consulting Provider: [facility] – [place] [facility] Reason for consultation: Unexplained left hand pain and swelling not due to infection Has provider been notified: Yes DS: Diagnosis Discharge Diagnosis (1) SACHIN (acute kidney injury): Status: Acute (2) Bilateral hand swelling: Status: Acute DS: Summary Hospital Course Hospital Course: admission hpi Attending physician on admission: Jeff Engle Chief Complaint: Bilateral hand pain Kevin Hubbard is a 69 years old man with no significant past medical history presents to the ED complaining of ongoing pain to both hands associated with swelling. This program has been going on for at least 2 weeks. He has been taking 600 - 800 mg of Advil at least twice day for the pain. He was recently prescribed with diclofenac after a received to the urgent care. He reported any other problems such as headache, palpitation, chest pain, shortness on breath, abdominal pain, nausea, vomiting, diarrhea or black/bloody stools. There are no fever or chills. He does complain of urinary frequency. He has no history of diabetes mellitus, hypertension, remote of arthritis, hyperlipidemia, MIs, CVA or kidney problems. He does not follow routinely with the primary doctor. He does not take any daily medications other than Advil. He is a former smoker. Did not report alcohol abuse or illicit drug use. In the ED, he was found to have stable vital sign. His blood pressure is elevated, last BP is 177/84. Blood workup showed no leukocytosis. Hemoglobin is 7.4 --> 7.8, hematocrit 23.9 and MCV is 87.3. Platelets are 224. Urine laxative is elevated, 8.2 as well as phosphate. Potassium is 5.4 -> 5.5. Lipase elevated, 128. Abdominal pelvis CT scan without contrast showed prostatomegaly with mass effect in the urinary bladder base, no acute obstructive uropathy or urolithiasis, possible uncomplicated epidermal inclusion cyst versus liquified hematoma (if hx of trauma). Bilateral hand x-ray showed no acute fracture or dislocation, it did showed mild/early non erosive antritis changes. ECG showed normal sinus rhythm with frequent PVCs and no ischemic changes. ED tx: Bicarb infusion Hospital course: 69/m with no known pmh who presented with bilateral hand pain and routine labs showing signficantly high creatine of 7, metabolic acidosis and hemoglobin of 6 no sings of active bleed, occult blood negative, K of 5.4. Patient was asdmitted for further testing including immunoligical studies still pending. He was hydrated with IVF, potassium corrected with [place], metabolic resolved with IvF and Bicab. He was seen by Nephrology and plan made for inpatient biopsy unfortunately could not be done due to peristent high BP and scheduling issue and therefore will be arranged on outpatient basis by IR. His creatine has remained stable around 6, suggesting chronic kidney disease. His blood pressure has been elevated and hasd been started on Norvasc adjusted to 10 mg daily and Labetalol 100 mg twice with improved BP presently 140/84. His anemia is likely due to CKD and has remained stable after 2 units of RBC rising from Hgb rising from 6 to 8, He will follow up with his doctor and nephrology for further adjustment. He has no sings of uremia and making good amount of urine Time Attestation Discharge Coordination Time (in mins): 40 Quality: Safe Use of Opioids Does Pt have an Active Cancer Diagnosis on the Problem List?: No Quality: Stroke Does the patient have a stroke diagnosis?: No Physical Exam Vital Signs: Vital Signs: Last Vital Signs Temp 97.9 F 04/21/25 07:20 Pulse 67 04/21/25 07:20 Resp 16 04/21/25 07:20 BP 140/84 H 04/21/25 08:35 Pulse Ox 95 04/21/25 07:20 O2 Del Method Room Air 04/21/25 07:20 O2 Flow Rate 2 04/19/25 13:30 BMI result Body Mass Index 30.7 DS: Data Data Completed and Pending Labs on day of discharge: Laboratory Results - last 24 hr 04/18/25 04/19/25 04/21/25 05:17 05:55 05:57 WBC 6.2 RBC 2.62 L Hgb 8.1 L Hct 23.4 L MCV 89.3 MCH 30.9 MCHC 34.6 RDW 14.2 Plt Count 155 L MPV 9.5 Absolute Nucleated RBC 0.000 Nucleated RBC % (auto) 0.0 Sodium Cancelled Potassium Chloride Carbon Dioxide Anion Gap BUN Creatinine Estim Creat Clear Calc Estimated GFR Random Glucose Calcium IgG Total 593 L IgA Total 27 L IgM 10 L MIL Interpretation SEE NOTE Cycl Citrul Peptide IgG <16 Double Strand DNA Ab 1 Complement C3 27 L Complement C4 4 L 04/21/25 04/21/25 04/21/25 05:57 05:57 05:57 WBC RBC Hgb Hct MCV MCH MCHC RDW Plt Count MPV Absolute Nucleated RBC Nucleated RBC % (auto) Sodium 142 Potassium Cancelled 3.8 Chloride Cancelled 105 Carbon Dioxide Cancelled Anion Gap BUN Creatinine Estim Creat Clear Calc Estimated GFR Random Glucose Calcium IgG Total IgA Total IgM MIL Interpretation Cycl Citrul Peptide IgG Double Strand DNA Ab Complement C3 Complement C4 04/21/25 04/21/25 04/21/25 05:57 05:57 05:57 WBC RBC Hgb Hct MCV MCH MCHC RDW Plt Count MPV Absolute Nucleated RBC Nucleated RBC % (auto) Sodium Potassium Chloride Carbon Dioxide 26 Anion Gap Cancelled 15 BUN Cancelled 75 H Creatinine Cancelled Estim Creat Clear Calc Estimated GFR Random Glucose Calcium IgG Total IgA Total IgM MIL Interpretation Cycl Citrul Peptide IgG Double Strand DNA Ab Complement C3 Complement C4 04/21/25 04/21/25 04/21/25 05:57 05:57 05:57 WBC RBC Hgb Hct MCV MCH MCHC RDW Plt Count MPV Absolute Nucleated RBC Nucleated RBC % (auto) Sodium Potassium Chloride Carbon Dioxide Anion Gap BUN Creatinine 6.31 H* Estim Creat Clear Calc Cancelled 12.1 Estimated GFR Cancelled 9 Random Glucose Cancelled Calcium IgG Total IgA Total IgM MIL Interpretation Cycl Citrul Peptide IgG Double Strand DNA Ab Complement C3 Complement C4 04/21/25 04/21/25 05:57 05:57 WBC RBC Hgb Hct MCV MCH MCHC RDW Plt Count MPV Absolute Nucleated RBC Nucleated RBC % (auto) Sodium Potassium Chloride Carbon Dioxide Anion Gap BUN Creatinine Estim Creat Clear Calc Estimated GFR Random Glucose 91 Calcium Cancelled 8.2 L IgG Total IgA Total IgM MIL Interpretation Cycl Citrul Peptide IgG Double Strand DNA Ab Complement C3 Complement C4 Discharge Plan Discharge Anticipated Discharge Date/Time: 04/21/25 10:12 Patient Disposition: Home, Self-Care Discharge Diagnosis: renal failure, anemia, gout Referrals: Karina Murillo, DNP, [employer] [Nurse Practitioner, Nephrology] - 1 Week Ami Almanza PA-C [Primary Care Provider, Internal Medicine] - 1 Week Discharge Medications: New amlodipine 10 mg Tablet 10 mg PO DAILY Qty: 90 0RF Protocol: Hold for SBP< HOLD for SBP < : 90 labetalol 100 mg Tablet 100 mg PO BID Qty: 180 0RF Protocol: Hold for SBP/HR < HOLD for SBP < : 90 HOLD for HR < : 60 prednisone 20 mg tablet 40 mg PO DAILY 4 Days Qty: 8 0RF Discontinued diclofenac sodium 50 mg tablet,delayed release (DR/EC) 50 mg PO Q12H PRN (Reason: pain) Qty: 20 0RF Discharge Orders: Discharge Order (Routine); Ordered 04/21/25 Ordered By: Karlo Saucedo Diet: Advance to usual diet Activity on Discharge: As tolerated Stand Alone Forms: Patient Portal Discharge page Print Language: Kiswahili Care Plan Goals: full work up for kidney failure and controlling blood of blood pressure Health Concerns: renal failure uncontrolled bood pressure Gout Plan of Treatment: take Norvasc and Labetalol for blood pressure take Prednions for gout follow up with Nephrology in the office Kidney Biopsy is scheduled for April 27 2025 at 10:30 am. Please anushave at the [facility] at 9 Am Assessment: see above
--- NOTE | 2025-04-21 10:37 | MHC.CM.PN ---
PT TO DC HOME TODAY WITH NO SERVICES VIA PRIVATE TRANSPORT
[2025-04-21 12:00] VITALS: BP 151/71; PULSE 71; RESP 16; TEMP 36; O2SAT 93
--- NOTE | 2025-04-21 12:23 | MHC.CM.PN ---
CM MET WITH PT AND TO DISCUSS DCP PTS , [facility], REPORTS FEELING OVERWHELMED AND UNPREPARED TO TAKE PT HOME CM REVIEWED THE DC AND FOLLOW UP PLAN, PER DISCUSSION, A REFERRAL WAS MADE TO [facility] FOR MEALS ON WHEELS [facility] UNDERSTANDS [facility] CAN BE CONTACTED AT ANY TIME TO ASSESS FOR FURTHER CARE NEEDS [facility] UNDERSTANDS PTS BIOPSY IS SCHEDULED AND THE INFORMATION IS HIGHLIGHTED IN THE DC PACKET SHE ALSO KNOWS HE WILL NEED TO FOLLOW UP WITH NEPHROLOGY AND PCP AND [facility] ON THE WAY HOME SHE WILL TRANSPORT PT
[2025-04-21 20:59] LABS: Anti Nuclear Antibody Screen NEGATIVE (NEGATIVE)
[2025-04-22 15:08] LABS: Vitamin D 25-OH, D2 <4 ng/mL; Vitamin D 25-OH, D3 10 ng/mL; Vitamin D 25-OH, Total 10 ng/mL (30-100)
[2025-04-23 11:23] LABS: VITAMIN D (1,25 OH) D3 <8 pg/mL; Vit D (1,25-Dihydroxy) Total <8 pg/mL (18-72); Vitamin D (1,25 OH) D2 <8 pg/mL
--- NOTE | 2025-04-25 07:50 | P.CDIM_ITS ---
PROVIDER RESPONSE TEXT: To clarify, the appropriate diagnosis supported by the clinical indicators: CKD, stage 5 QUERY TEXT: PHYSICIAN'S DOCUMENTATION REQUEST Date of Query: 04/19/2025 10:25 AM EDT Patient Name: EVY GAMBLE Admit Date: 04/17/2025 Dear Karlo Saucedo MD, A review of the medical record indicates additional documentation may be needed. Please review below and update the documentation accordingly. Clinical Indicators: creatinine 7.36 eGFR 8 uncontrolled HTN bilateral hand edema nausea Please clarify which of the following accurately represents the patient's renal status: CKD, stage 1 CKD, stage 2 CKD, stage 3a CKD, stage 3b CKD, stage 4 CKD, stage 5 Other (explain) Clinically unable to determine (explain) Thank you, Ileana Howard RN Use of terms such as suspected, likely, concern for, or probable (associated with a specific diagnosis that is being evaluated, monitored, or treated as if it exists) are acceptable and can be coded in the inpatient setting, when documented at the time of discharge. Please use your independent medical judgment in providing your response. THIS QUERY IS PART OF THE PERMANENT MEDICAL RECORD
[2025-04-25 16:34] LABS: Kappa, Serum 206 mg/dL (176-443); Kappa/Lambda Ratio, Serum 3.07 (1.29-2.55); Lambda, Serum 67 mg/dL (91-240)
== END 2025-04-21 13:19 | disposition home or self-care (01) | DRG 684 ==
LOC: HO.ED 11:13 → HO.EDOVER 13:08 → HO.S3 04-18 13:21
PROVIDERS: Emergency Medicine; Nurse Practitioner Family; Physician Assistant Medical; Admitting Provider Internal Medicine; Emergency Provider Emergency Medicine; PCP Physician Assistant Medical; Visit Provider Internal Medicine
DX: N17.9 Acute kidney failure, unspecified (principal); I12.9 Hypertensive chronic kidney disease with stage 1 through stage 4 chronic kidney disease, or unspecified chronic kidney disease; N18.5 Chronic kidney disease, stage 5; L72.0 Epidermal cyst; D63.1 Anemia in chronic kidney disease; M19.042 Primary osteoarthritis, left hand; M19.041 Primary osteoarthritis, right hand; M10.9 Gout, unspecified; E87.5 Hyperkalemia; Z87.891 Personal history of nicotine dependence; Z79.899 Other long term (current) drug therapy
CPT/HCPCS: 36415; 73120; 74150; 74176; 76775; 80048; 80061; 80076; 81001; 82272; 82306; 82570; 82652; 82784; 82803; 83036; 83540; 83615; 83690; 83735; 83880; 83883; 83970; 84100; 84132; 84156; 84295; 84300; 84443; 84550; 85014; 85018; 85025; 85027; 85045; 85610; 85999; 86038; 86140; 86141; 86160; 86200; 86225; 86334; 86335; 86431; 86850; 86900; 86901; 86923; 93005; 99152; 99153; 99285; J0360; J1920; J2250; J2270; J2405; J2470; J2597; J3010; P9016

== ENCOUNTER → 2025-04-17 11:10 | Outpatient (BNV) | payer MEDICARE, MEDICAID, SELFPAY | PROVIDERS: Admitting Provider Internal Medicine; Emergency Provider Emergency Medicine; PCP Dentist General Practice; Visit Provider Radiology Diagnostic Radiology | DX: K57.30 Diverticulosis of large intestine without perforation or abscess without bleeding (principal); R22.31 Localized swelling, mass and lump, right upper limb; R22.32 Localized swelling, mass and lump, left upper limb; M79.641 Pain in right hand; M79.642 Pain in left hand; N40.0 Benign prostatic hyperplasia without lower urinary tract symptoms | CPT/HCPCS: 73120; 74176 ==

== ENCOUNTER → 2025-04-17 11:22 | Outpatient (BNV) | payer MEDICARE, MEDICAID, SELFPAY | PROVIDERS: Admitting Provider Internal Medicine; Emergency Provider Emergency Medicine; PCP Dentist General Practice; Visit Provider Internal Medicine | DX: I49.3 Ventricular premature depolarization (principal) | CPT/HCPCS: 93010 ==

== ENCOUNTER 2025-04-17 12:55 | Outpatient (BNV) | payer MEDICARE, MEDICAID, SELFPAY | END 2025-04-18 11:02 | PROVIDERS: Admitting Provider Internal Medicine; Emergency Provider Emergency Medicine; PCP Dentist General Practice; Visit Provider Radiology Diagnostic Radiology | DX: N28.1 Cyst of kidney, acquired (principal) | CPT/HCPCS: 76775 ==

== ENCOUNTER 2025-04-17 12:55 | Outpatient (BNV) | payer MEDICARE, MEDICAID, SELFPAY | END 2025-04-19 12:25 | PROVIDERS: Admitting Provider Internal Medicine; Emergency Provider Emergency Medicine; PCP Dentist General Practice; Visit Provider Radiology Diagnostic Radiology | DX: N28.1 Cyst of kidney, acquired (principal) | CPT/HCPCS: 74150 ==

== ENCOUNTER → 2025-04-17 12:55 | Outpatient (BNV) | payer MEDICARE, MEDICAID, SELFPAY | PROVIDERS: Admitting Provider Internal Medicine; Emergency Provider Emergency Medicine; PCP Dentist General Practice | DX: M19.041 Primary osteoarthritis, right hand (principal); M19.042 Primary osteoarthritis, left hand | CPT/HCPCS: 99222 ==

== ENCOUNTER → 2025-04-17 12:55 | Outpatient (BNV) | payer MEDICARE, MEDICAID, SELFPAY | PROVIDERS: Admitting Provider Internal Medicine; Emergency Provider Emergency Medicine; PCP Dentist General Practice; Visit Provider Internal Medicine | DX: N17.9 Acute kidney failure, unspecified (principal); I10 Essential (primary) hypertension; D64.9 Anemia, unspecified; L72.0 Epidermal cyst | CPT/HCPCS: 99223 ==

== ENCOUNTER → 2025-04-17 12:55 | Outpatient (BNV) | payer MEDICARE, MEDICAID, SELFPAY | PROVIDERS: Admitting Provider Internal Medicine; Emergency Provider Emergency Medicine; PCP Dentist General Practice; Visit Provider Nurse Practitioner Family | DX: N17.9 Acute kidney failure, unspecified (principal); M79.89 Other specified soft tissue disorders | CPT/HCPCS: 99222; 99232 ==

== ENCOUNTER 2025-04-22 13:05 | Outpatient (AMB) | payer MEDICARE, MEDICAID, SELFPAY ==
--- NOTE | 2025-04-22 13:06 | MHC.PC.OV ---
Vital Signs 04/22/25 13:13 04/22/25 14:09 Height 5 ft 7.48 in Weight 200 lb 2 oz BMI 30.9 BP 166/70 H 144/76 H Blood Pressure Location Lt brachial Lt brachial Position Sitting Sitting Respiration 20 Pulse 78 Pulse Source Pulse Oximeter Temp 98.3 F Temp Source Temporal Artery Scan Pulse Oximetry (%) 98 Oxygen Delivery Method Room Air Intake Visit Reasons: [facility] Kidney failure, EST care Intake Note: Visit Reason: TCM Intake Note: Patient is here for hospital discharge follow up. Patient was discharged from Regulatory Assistant Required: No Phlebotomy Specialist: Not Required per policy Accompanied by: Spouse Allergies No Known Allergies Allergy (Verified 04/22/25 13:31) Medication List - Last Reconciled 04/22/25 by Ami Almanza PA-C amlodipine 10 mg See Protocol PO DAILY labetalol 100 mg See Protocol PO BID prednisone 40 mg (2 x 20 mg) PO DAILY 4 days Tobacco use date assessed: 04/22/25 Fall risk assessment: No Falls in past year Last assessed Fall Risk: 04/22/25 Dental Screening Dental Screen Date: 04/22/25 Did you have a dental visit in the last 12 months?: No Did you have a dental problem in the last 6 months where you did not have access to dental care?: No Was dental information given to patient?: No HPI HPI Comments History of Present Illness Details Patient presents to the office for a TCM visit. Date of admission: 04/17/2025 Date of discharge: 04/21/2025 This is a Follow-up from admission at [facility] HPI/hospital course/discharge summary: The patient is a 69-year-old male presenting for a new patient appointment and discharge follow-up. He was admitted to the hospital on April 17, 2023, and discharged on April 21, 2023, after presenting with bilateral hand pain and swelling, which had been ongoing for about two weeks. At that time patient had been utilizing Advil twice a day 600-800 mg and had went to an urgent care and was prescribed Celebrex. Although pain continued and patient started to have urinary frequency therefore he went to the emergency department. When he arrived at the emergency department he was noted to have elevated blood pressure. Blood work up showed no leukocytosis. Hemoglobin and hematocrit were significantly low at 7.4 and 23.9 and MCV was 87.3 platelets were 224. Urine was elevated. 8.2 phosphate. Potassium was also at 5.4. Lipase was elevated at 128. The abdominal pelvis CT scan without contrast showed prostatomegaly with mass effect in the urinary bladder base, no acute obstructive uropathy or urolithiasis possibly uncomplicated epidural inclusion cyst versus liquid 5 hematoma if no history of trauma. Bilateral hand x-ray showed no acute fracture dislocation it did show mild early non erosive arthritic changes. EKG showed normal sinus rhythm with frequent PVCs and no ischemic changes. During hospitalization, he was diagnosed with chronic kidney disease, with a creatinine level of 7 and metabolic acidosis, which was managed with IV fluids and bicarb. The patient has a history of anemia secondary to chronic kidney disease, with hemoglobin levels rising from 6 to 8 after receiving two units of red blood cells during his hospital stay. He denies any history of diabetes, hypertension, arthritis, hyperlipidemia, kidney disease, strokes, or heart attacks prior to this admission. His blood pressure was elevated during the hospital stay, and he was started on Norvasc and labetalol to manage it. The patient reports bilateral hand pain, which was initially managed with Advil at home although due to the CKD patient was discontinued and instructed not to take any NSAIDs and later discharged with prednisone. He was also prescribed Celebrex after visiting urgent care due to persistent pain. The pain in his hands is suspected to be related to gout, but treatment options are limited due to his kidney condition. A CT scan during his hospital stay revealed an enlarged prostate with mass effect on the urinary bladder base, and further evaluation by urology is planned. The patient has been referred to nephrology, gastroenterology, and orthopedics for further management of his conditions. Discharged to/Current Location: Home Lives with: Diagnosis: SACHIN SACHIN/CKD; anemia requiring blood transfusion; enlarged prostate with mass effect; bilateral hand swelling Procedures performed: - Patient had bilateral hand x-rays which revealed mild/early non erosive arthritic changes. - Patient had a CT scan of abdomen pelvis without IV contrast which revealed prostate megaly with moderate mass effect in the urinary bladder base. No acute obstructive uropathy or urolithiasis. No obstructive or acute inflammatory changes in the gastro intestinal tract. Diverticulosis coli. Large cyst in the medial compartment of the upper right thigh with no visible complex features. The possibility of uncomplicated epidermal inclusion cyst is raised. If there is been prior trauma the possibly of a liquified hematoma is raised. - patient had renal ultrasound which revealed 7 mm right lower pole renal cyst. The upper pole of the left kidney is not well visualized. Otherwise unremarkable renal ultrasound. Patient then had a repeat CT scan of abdomen without IV contrast on April 19, 2025 two days later which was unremarkable. New medications: Patient was started on amlodipine 10 mg daily, labetalol 100 mg b.i.d. due to elevated blood pressure and was diagnosed with hypertension, prednisone 40 mg for 4 days for swelling of bilateral hands possible gout. Discontinued medications: diclofenac Change medications/dosing: No dosing changes as patient was not on any medications prior Pending labs: No pending labs are recommended Pending diagnostic test: Patient has follow-up with nephrology for renal cysts biopsy Any Follow-up Labs required? Patient is being followed by Nephrology will have repeat renal function testing Any Follow-up Diagnostic test required? No follow-up diagnostic test required at this time How are you feeling? Better still in pain in left hand mostly and some on right hand Are you in any pain or discomfort? Patient is still has some pain in bilateral hands and swelling although improved when compared to when he was in the hospital all or before he entered the hospital Do you have any questions about your condition or discharge instructions? Patient had some questions about his condition and discharge instructions although they were fully answered during this visit along with his 's Were you able to get your medications filled? Patient has been taking all his medications that he was prescribed as prescribed and were able to fill Do you have any questions about your medications? Patient does not have any questions about his medications Any referrals required? Urology referral placed at this time for enlarged prostate with mass effect, ortho referral placed at this time for bilateral hand pain and swelling. Gastroenterology referral placed for anemia. Were you able to schedule your follow-up appointment? Patient has a nephrology appointment in place. If home health was ordered, have they contact you? Home health aide was not ordered and patient not interested at this time Any outpatient services, if so, are you scheduled? [facility]als on wheels were ordered and they are awaiting call Are there any additional resources like transportation you might need during her recovery? Patient does not need any transportation - [facility]? not at this time - [employer]? not at this time - Meals on wheels? yes, referral in place Educational need/resources: Patient does not need any additional educational needs resources What support system do you have? , kids PFSH Medical History Pre-diabetes Hypertension CKD (chronic kidney disease) Hospital discharge follow-up Establishing care with new doctor, encounter for Enlarged prostate Family History Father Congenital heart failure Mother Arthritis Social History Household Members: Spouse and Family Housing: House Do you presently have visiting nurse or other home services: No Alcohol intake: current Alcohol intake frequency: does not drink Patient Tobacco Use Status: Former Tobacco user service: No Current occupational status: retired Cognitive needs: No Hearing needs: No Vision needs: Yes (rx glasses) Questionnaire PHQ-9 Over the last 2 weeks, how often have you been bothered by any of the following problems? 1. Little interest or pleasure in doing things: not at all 2. Feeling down, depressed, or hopeless: not at all 3. Trouble falling or staying asleep, or sleeping too much: not at all 4. Feeling tired or having little energy: not at all 5. Poor appetite or overeating: not at all 6. Feeling bad about yourself - or that you are a failure or have let yourself or your family down: not at all 7. Trouble concentrating on things, such as reading the newspaper or watching television: not at all 8. Moving or speaking so slowly that other people could have noticed. Or the opposite - being so fidgety or restless that you have been moving around a lot more than usual: not at all 9. Thoughts that you would be better off or of hurting yourself in some way: not at all Total score: 0 Depression Screening Interpretation: Negative Depression Screening Done: Yes 37628 - PHQ-9 Billing: Yes Source: Developed by Drs. Mick Lou, Suzy Beltrán, Kuldeep Burrell and colleagues, with an educational angela from [employer]. Thrive Questionnaire Date Thrive assessed: 04/22/25 I am a: Patient What is your living situation today?: I have a steady place to live Within the past 12 months, did the food you bought not last and you didn't have the money to get more?: Never true Within the past 12 months, did you worry whether your food would run out before you got money to buy more?: Never true Do you have trouble paying for medicines?: No Do you have trouble getting transportation to medical appointments?: No Do you have trouble paying your heating and electricity bill?: No Do you have trouble taking care of your child, family member or friend?: No Do you have trouble with day-to-day activities such as bathing, preparing meals, shopping, managing finances, etc.?: No Are you currently unemployed and looking for a job?: No Are you interested in more education?: No Please select the resources that you would like help with: None Currently or been in a relationship where the following occur: No concerns reported THRIVE Score: 0 AUDIT C Alcohol Use Questionnaire (AUDIT-C) 1. How often do you have a drink containing alcohol?: Never 3. How often do you have six or more drinks on one occasion?: Never Total Score: 0 Score Reviewed/Action Taken: No FELICITA-7 AMB Questionnaire FELICITA-7 Date FELICITA - 7 assessed: 04/22/25 Feeling nervous, anxious, or on edge: 0 = Not at all Not being able to stop or control worryin = Not at all Worrying too much about different things: 0 = Not at all Trouble relaxin = Not at all Being so restless that it is hard to sit still: 0 = Not at all Becoming easily annoyed or irritable: 0 = Not at all Feeling afraid as if something awful might happen: 0 = Not at all Total FELICITA-7 score (0-4 normal; 5-9 mild; 10-14 moderate; 15-21 severe): 0 Source: Developed by Drs. Mick Lou, Suzy Beltrán, Kuldeep Burrell and colleagues, with an educational angela from [employer]. FELICITA-7 Assessment Billing FELICITA-7 Assessment Tool: FELICITA-7 Assessment 84923 Review of Systems Const Details: - General: Denies fever, reports weight loss due to dietary changes. - Cardiovascular: Denies chest pain, palpitations. - Respiratory: Denies shortness of breath. - Gastrointestinal: Denies abdominal pain, nausea, diarrhea, black or bloody stools. - Genitourinary: Reports urinary frequency. - Musculoskeletal: Reports bilateral hand pain and swelling. - Neurological: Denies headache. Physical exam (Primary Care) Vital Signs: Last Vital Signs Temp 98.3 F 04/22/25 13:13 Pulse 78 04/22/25 13:13 Resp 20 04/22/25 13:13 BP 144/76 H 04/22/25 14:09 Pulse Ox 98 04/22/25 13:13 Oxygen Delivery Method Room Air 04/22/25 13:13 Vitals signs have been reviewed. Care Plan Goal for BP management: <140/90 BMI result Body Mass Index 30.9 BMI Assessment/Plan discussion: High BMI High, discussed plan: lifestyle, weight reduction, dietary, physical activity and alcohol moderation Tobacco/Smoking Status: Tobacco use Status Tobacco use date assessed 04/22/25 04/22/25 13:11 Patient Tobacco Use Status Former Tobacco user 04/22/25 13:22 PHQ-9: PHQ-9 Score PHQ-9: Total score 0 04/22/25 13:33 Depression Screening Interpretation: Negative Thrive Assessment: Date of Thrive Assessment Date Thrive assessed 04/22/25 04/22/25 13:11 Currently or been in a relationship where the following occur: No concerns reported Const Other: Appearance: Alert. Oriented X3. No acute distress. Head: Normal external exam. Normocephalic. Atraumatic. Eyes: Pupils are equal, round, and reactive to light. Extraocular movements intact. Conjunctiva and sclera normal. Eyelids normal. Throat: Pharynx normal. Uvula midline. Moist mucous membranes. Neck: Normal inspection. Neck supple. Full range of motion. Cardiovascular: Normal heart rate and rhythm. Heart sound normal. No murmurs noted. Pulses normal throughout. Respiratory: No respiratory distress. Painless inspiration. Breath sounds normal. No wheezes/rales/rhonchi noted. Chest nontender. No accessory muscle usage noted or decreased air movement noted. Abdomen: Soft and nontender. No distention noted. No organomegaly noted. Back: No costovertebral angle tenderness. Full range of motion noted. Skin: Skin warm and dry. Normal skin color. Normal skin turgor. No rashes/lesions/lacerations noted. Extremities: No lower extremity edema. Extremities exhibit normal range of motion. Extremities nontender. Neuro: Oriented X 3. No motor deficit. No sensory deficit. Reflexes normal. Results Reviewed Results Reviewed: - Labs: Hemoglobin 7.4 rising to 7.8, hematocrit 23.9, MCV 87, platelets 224 dropping to 155, potassium 5.4 reducing to 3.8, creatinine 7 reducing to 6.3. - Imaging: CT scan showed enlarged prostate with mass effect on the urinary bladder base, no acute obstructive uropathy or urolithiasis. - EKG: Normal sinus rhythm with frequent PVCs, no ischemic changes. Coding Level of Care Code TCM High MDM <= 7 Days Complex EM visit Add On G2211 Diagnoses Establishing care with new doctor, encounter for Z76.89 Hospital discharge follow-up Z09 CKD (chronic kidney disease) N18.9 Anemia, unspecified type D64.9 Anemia type: unspecified type Bilateral hand swelling M79.89 Enlarged prostate N40.0 Hypertension I10 Pre-diabetes R73.03 Arthritis M19.90 Additional Codes FELICITA-7 Assessment Billing - FELICITA-7 Assessment Tool: FELICITA-7 Assessment 26820 ([id number]) PHQ-9 - 99332 - PHQ-9 Billing: Yes ([id number]) Time Spent (min) 60 Assessment & Plan Assessment & Plan (1) Establishing care with new doctor, encounter for: Code(s): Z76.89 - Persons encountering health services in other specified circumstances Category: Medical (2) Hospital discharge follow-up: Code(s): Z09 - Encounter for follow-up examination after completed treatment for conditions other than malignant neoplasm Category: Medical Plan: Patient here for hospital discharge follow-up from [facility]. Denies any acute complaints. Referrals placed. (3) CKD (chronic kidney disease): Code(s): N18.9 - Chronic kidney disease, unspecified Category: Medical Plan: The patient was diagnosed with chronic kidney disease during hospitalization, with a creatinine level of 7 and metabolic acidosis. Management included IV fluids and bicarb, and the creatinine level has since decreased to 6.3. Follow-up with nephrology is planned, and a kidney biopsy is scheduled to further evaluate the condition. (4) Anemia: Code(s): D64.9 - Anemia, unspecified Category: Medical Qualifiers: Anemia type: unspecified type Qualified Code(s): D64.9 - Anemia, unspecified Plan: The patient's anemia is attributed to chronic kidney disease, with hemoglobin levels rising from 6 to 8 after receiving two units of red blood cells. Further evaluation by gastroenterology is planned to rule out any potential gastrointestinal bleeding. (5) Bilateral hand swelling: Code(s): M79.89 - Other specified soft tissue disorders Category: Medical Plan: The patient reports bilateral hand pain, initially managed with Advil and later with prednisone. The pain is suspected to be related to gout, but treatment options are limited due to the patient's kidney condition. Referral to orthopedics is planned for further evaluation and management. (6) Enlarged prostate: Comment: with mass effect in the urinary bladder base Code(s): N40.0 - Benign prostatic hyperplasia without lower urinary tract symptoms Category: Medical Plan: A CT scan revealed an enlarged prostate with mass effect on the urinary bladder base. Further evaluation by urology is planned to assess the significance of this finding. (7) Hypertension: Code(s): I10 - Essential (primary) hypertension Category: Medical Plan: The patient was found to have elevated blood pressure during hospitalization and was started on Norvasc and labetalol. Blood pressure is being monitored, with a target of maintaining it around 140/80 mmHg. (8) Pre-diabetes: Code(s): R73.03 - Prediabetes Category: Medical Plan: The patient's hemoglobin A1c was 6.0, indicating prediabetes. Lifestyle modifications, including dietary changes, are being implemented to manage this condition. (9) Arthritis: Code(s): M19.90 - Unspecified osteoarthritis, unspecified site Category: Medical Plan: The patient is suspected to have gout, contributing to the bilateral hand pain. Due to kidney disease, typical gout medications are not recommended, and prednisone is being used to manage inflammation. Homeopathic remedies and dietary modifications are being considered to manage symptoms. Plan Plan Patient was informed and verbally consented to the use of an ambient scribe for clinic note documentation during this visit. 1. Chronic Kidney Disease The patient was diagnosed with chronic kidney disease during hospitalization, with a creatinine level of 7 and metabolic acidosis. Management included IV fluids and bicarb, and the creatinine level has since decreased to 6.3. Follow-up with nephrology is planned, and a kidney biopsy is scheduled to further evaluate the condition. 2. Anemia Secondary To Chronic Kidney Disease The patient's anemia is attributed to chronic kidney disease, with hemoglobin levels rising from 6 to 8 after receiving two units of red blood cells. Further evaluation by gastroenterology is planned to rule out any potential gastrointestinal bleeding. 3. Bilateral Hand Pain The patient reports bilateral hand pain, initially managed with Advil and later with prednisone. The pain is suspected to be related to gout, but treatment options are limited due to the patient's kidney condition. Referral to orthopedics is planned for further evaluation and management. 4. Gout The patient is suspected to have gout, contributing to the bilateral hand pain. Due to kidney disease, typical gout medications are not recommended, and prednisone is being used to manage inflammation. Homeopathic remedies and dietary modifications are being considered to manage symptoms. 5. Enlarged Prostate A CT scan revealed an enlarged prostate with mass effect on the urinary bladder base. Further evaluation by urology is planned to assess the significance of this finding. 6. Hypertension The patient was found to have elevated blood pressure during hospitalization and was started on Norvasc and labetalol. Blood pressure is being monitored, with a target of maintaining it around 140/80 mmHg. 7. Prediabetes The patient's hemoglobin A1c was 6.0, indicating prediabetes. Lifestyle modifications, including dietary changes, are being implemented to manage this condition. During the visit, I discussed the patient's chronic kidney disease and the importance of follow-up with nephrology, including the planned kidney biopsy to further evaluate the condition. We reviewed the management of his anemia, attributed to chronic kidney disease, and the need for gastroenterology evaluation to rule out gastrointestinal bleeding. The patient's bilateral hand pain, suspected to be related to gout, was addressed, and the limitations of treatment options due to his kidney condition were explained. I advised on the use of prednisone and the consideration of homeopathic remedies and dietary modifications. The enlarged prostate finding from the CT scan was discussed, and a referral to urology was made for further evaluation. We also discussed the management of his hypertension with Norvasc and labetalol, and the importance of monitoring his blood pressure. The patient's prediabetes was addressed, with emphasis on lifestyle modifications to manage the condition. Orders: Orders C Reactive Protein Today Z00.00 - Encounter for general adult medical examination without abnormal findings Complete Blood Count Auto Diff Today Z00.00 - Encounter for general adult medical examination without abnormal findings Comprehensive [place]. Panel Fast Today Z00.00 - Encounter for general adult medical examination without abnormal findings Liver Panel Today Z00.00 - Encounter for general adult medical examination without abnormal findings Vitamin B12 and Folate Today Z00.00 - Encounter for general adult medical examination without abnormal findings Uric Acid Today M19.041 - Primary osteoarthritis, right hand, M19.042 - Primary osteoarthritis, left hand, M19.90 - Unspecified osteoarthritis, unspecified site, M79.89 - Other specified soft tissue disorders Hemoglobin A1c Today Z00.00 - Encounter for general adult medical examination without abnormal findings Lipid Panel Today Z00.00 - Encounter for general adult medical examination without abnormal findings Magnesium Today Z00.00 - Encounter for general adult medical examination without abnormal findings Vitamin D 25-OH Total Today Z00.00 - Encounter for general adult medical examination without abnormal findings TSH reflex Free T4 Today Z00.00 - Encounter for general adult medical examination without abnormal findings PSA,Total (Free>4and<10) Today Z00.00 - Encounter for general adult medical examination without abnormal findings Referrals Urology Referral N18.9 - Chronic kidney disease, unspecified, N40.0 - Benign prostatic hyperplasia without lower urinary tract symptoms, Z09 - Encounter for follow-up examination after completed treatment for conditions other than malignant neoplasm, Z76.89 - Persons encountering health services in other specified circumstances Orthopedics Referral M19.041 - Primary osteoarthritis, right hand, M19.042 - Primary osteoarthritis, left hand, M79.89 - Other specified soft tissue disorders Gastroenterology Referral D64.9 - Anemia, unspecified, Z09 - Encounter for follow-up examination after completed treatment for conditions other than malignant neoplasm, Z12.11 - Encounter for screening for malignant neoplasm of colon Medications: New oxycodone Partial Fill upon patient request. 5 mg PO BEDTIME PRN 20 tabs 0RF pain Patient Instructions: - Follow up with nephrology for kidney biopsy and further evaluation. - Schedule appointments with gastroenterology and orthopedics as planned. - Monitor blood pressure regularly, aiming for around 140/80 mmHg. - Continue dietary changes to manage prediabetes. - Consider homeopathic remedies for gout pain management. - Avoid medications that affect kidney function, such as Advil.
[2025-04-22 13:13] VITALS: BP 166/70; PULSE 78; RESP 20; TEMP 36.8; O2SAT 98; BMI 30.9
[2025-04-22 14:09] VITALS: BP 144/76
== END 2025-04-22 14:04 | disposition home or self-care (01) ==
LOC: HO.HMCSH 13:05
PROVIDERS: PCP Physician Assistant Medical; Visit Provider Physician Assistant Medical
DX: I12.9 Hypertensive chronic kidney disease with stage 1 through stage 4 chronic kidney disease, or unspecified chronic kidney disease (principal); N18.9 Chronic kidney disease, unspecified; Z76.89 Persons encountering health services in other specified circumstances; D64.9 Anemia, unspecified; Z09 Encounter for follow-up examination after completed treatment for conditions other than malignant neoplasm; M79.89 Other specified soft tissue disorders; N40.0 Benign prostatic hyperplasia without lower urinary tract symptoms; R73.03 Prediabetes

== ENCOUNTER → 2025-04-22 13:05 | Outpatient (BNVA) | payer MEDICARE, MEDICAID, SELFPAY | PROVIDERS: PCP Physician Assistant Medical; Visit Provider Physician Assistant Medical | DX: Z09 Encounter for follow-up examination after completed treatment for conditions other than malignant neoplasm (principal); Z76.89 Persons encountering health services in other specified circumstances; I12.9 Hypertensive chronic kidney disease with stage 1 through stage 4 chronic kidney disease, or unspecified chronic kidney disease; N18.9 Chronic kidney disease, unspecified; D64.9 Anemia, unspecified; M79.89 Other specified soft tissue disorders; N40.0 Benign prostatic hyperplasia without lower urinary tract symptoms; R73.03 Prediabetes; M19.90 Unspecified osteoarthritis, unspecified site | CPT/HCPCS: 96127; 99496 ==

== ENCOUNTER 2025-04-26 15:37 | Outpatient (AMB) | payer MEDICARE, MEDICAID, SELFPAY ==
--- NOTE | 2025-04-26 15:55 | HO.NEPHOV ---
Vital Signs 04/26/25 15:59 Height 5 ft 7.48 in Weight 201 lb 8 oz BMI 31.1 BP 110/52 L Blood Pressure Location Lt brachial Position Sitting Pulse 66 Pulse Source Pulse Oximeter Pulse Oximetry (%) 97 Oxygen Delivery Method Room Air Intake [place] [facility] General Dentist/Owner Required: No Accompanied by: Spouse Allergies No Known Allergies Allergy (Verified 04/26/25 15:57) HPI Comments Details: Kevin Hubbard is a 69 years old man with no significant past medical history who recently presented [place] [facility] [place] complaining of ongoing pain to both hands associated with swelling for at least 2 weeks. He has been taking 600 - 800 mg of Advil at least twice day for the pain prior to presentation. He also had diclofenac received from an urgent care facility prior to hospital presentation. He did not report headache, palpitation, chest pain, shortness on breath, abdominal pain, nausea, vomiting, diarrhea or black/bloody stools, fever or chills or urinary symptoms. He has no history of diabetes mellitus, hypertension, remote of arthritis, hyperlipidemia, MIs, CVA or kidney problems. He does not follow routinely with the primary doctor. He does not take any daily medications other than Advil. He is a former smoker. Did not report alcohol abuse or illicit drug use. In the ER, he was found to have stable vital signs with. elevated BP . Blood workup showed no leukocytosis. Hemoglobin is 7.4 --> 7.8, hematocrit 23.9 and MCV is 87.3. Platelets were 224. Potassium is 5.4 -> 5.5. Lipase elevated, 128. Abdominal pelvis CT scan without contrast showed prostatomegaly with mass effect in the urinary bladder base, no acute obstructive uropathy or urolithiasis, possible uncomplicated epidermal inclusion cyst versus liquified hematoma . Bilateral hand x-ray showed no acute fracture or dislocation, it did showed mild/early non erosive antritis changes. ECG showed normal sinus rhythm with frequent PVCs and no ischemic changes. He was hydrated with IVF, potassium corrected with Lokelma & metabolic acidosis resolved with Bicarb. His creatinine remained stable suggesting chronic kidney disease. His anemia was thought to be due to CKD and has remained stable after 2 units of RBC rising from Hgb rising from 6 to 8, He denies uremic symptoms and making good amount of urine. He is due to have renal biopsy as an outpatient tomorrow [facility] Medical History Pre-diabetes Hypertension CKD (chronic kidney disease) Hospital discharge follow-up Establishing care with new doctor, encounter for Enlarged prostate Family History Father Congenital heart failure Mother Arthritis Social History Household Members: Spouse and Family Housing: House Do you presently have visiting nurse or other home services: No Alcohol intake: current Alcohol intake frequency: does not drink Patient Tobacco Use Status: Former Tobacco user service: No Current occupational status: retired Cognitive needs: No Hearing needs: No Vision needs: Yes (rx glasses) Review of Systems Const All systems reviewed & are unremarkable except as noted in HPI and below Physical Exam Vital Signs: Last Vital Signs Pulse 66 04/26/25 15:59 BP 110/52 L 04/26/25 15:59 Pulse Ox 97 04/26/25 15:59 Oxygen Delivery Method Room Air 04/26/25 15:59 BMI result Body Mass Index 31.1 Const General: comfortable and no acute distress Orientation/consciousness: patient oriented x3 HEENT Head: Yes normocephalic Mouth: Normal oral and palatal mucosa present Eyes EOM: EOMs intact bilaterally Neck Neck: Yes supple Resp Auscultation: clear to auscultation bilaterally Cardio Jugular venous distension: no JVD Rate: regular rate GI Palpation (GI): Soft to palpation Auscultation: normal bowel sounds General: Yes no CVA tenderness Back/Spine/Pelvis Back: no CVA tenderness Skin General skin exam: no rashes or lesions noted Neuro General: patient oriented x3 and moves all extremities Extrem General: Yes no pedal edema Results Reviewed Nephrology Results: Hgb, (14.0-18.0) 8.1 g/dl L 04/21/25 WBC, (4.8-10.8) 6.2 X10*3/uL 04/21/25 Plt Count, (160-400) 155 X10*3/uL L 04/21/25 Sodium, (135-145) 142 mmol/L 04/21/25 Potassium, (3.3-5.1) 3.8 mmol/L 04/21/25 Chloride, (96-108) 105 mmol/L 04/21/25 Carbon Dioxide, (22-29) 26 mmol/L 04/21/25 BUN, (9-16) 75 mg/dL H 04/21/25 Creatinine, (0.5-1.4) 6.31 mg/dL H* 04/21/25 Calcium, (8.4-10.2) 8.2 mg/dL L 04/21/25 Phosphorus, (2.7-4.5) 5.5 mg/dL H 04/19/25 PTH Intact, (8.7-77.1) 311.7 pg/mL H 04/18/25 Urine Protein, (Neg-Trace) 100 (2+) mg/dL H 04/17/25 Urine Creatinine 65.79 mg/dL 04/19/25 Protein/Creatinin Ratio, (<0.2) 2.98 H 04/19/25 Renal US 04/18/25 Assessment & Plan Assessment & Plan (1) SACHIN (acute kidney injury): Code(s): N17.9 - Acute kidney failure, unspecified Category: Medical (2) Proteinuria: Code(s): R80.9 - Proteinuria, unspecified Category: Medical Qualifiers: Proteinuria type: other Qualified Code(s): R80.8 - Other proteinuria Plan [place] [id number] Nephrology Progress Note Signed Patient: Kevin Hubbard MR#: [id number] : 1955 Acct:[id number] Age/Sex: 69 / M Loc: [facility] 346-[address]: Karlo Saucedo MD cc: Karina Murillo DNP, [employer] COMM[employer]ICATION[employer] MECHANICIAN-BC~ Subjective Subjective Date of Service: 04/21/25 Interval history: following for SACHIN with unknown baseline renal function creatinine slightly lower at 6.31 this a.m. renal biopsy attempted 04/19- aborted due to blood pressure in 150s- pt reports his hands were in pain. Plan for repeat attempt at biopsy today. Patient reports he is feeling tired but otherwise well. Reports he has been urinating regularly in bathroom without this being measured- so 200mL/24hr urine output likely underestimated. Patient denies chest pain, shortness of breath, abdominal pain, flank pain, urinary symptoms, rash. reports ongoing hand swelling with intermittent pain. Physical Exam Vital Signs: Vital Signs: Last Vital Signs Temp 97.9 F 04/21/25 07:20 Pulse 67 04/21/25 07:20 Resp 16 04/21/25 07:20 BP 140/84 H 04/21/25 08:35 Pulse Ox 95 04/21/25 07:20 O2 Del Method Room Air 04/21/25 07:20 O2 Flow Rate 2 04/19/25 13:30 BMI result Body Mass Index 30.7 Const: General: alert and awake Resp: Effort & Inspection: normal respiratory effort and able to speak in complete sentences Auscultation: clear to auscultation bilaterally Cardio: Rate: regular rate Rhythm: regular rhythm Heart sounds: S1 normal heart sound present and S2 normal heart sound present GI: Palpation (GI): Soft to palpation and nontender : General: Yes no CVA tenderness Back/Spine/Pelvis: Back: no CVA tenderness Skin: Rashes: no rashes Extrem: General: Yes edema (+2 BUE edema, trace pitting BLE edema) Objective Data Labs 04/21/25 05:57 04/21/25 05:57 Labs: Laboratory Results - last 24 hr 04/18/25 04/19/25 04/21/25 05:17 05:55 05:57 WBC 6.2 RBC 2.62 L Hgb 8.1 L Hct 23.4 L MCV 89.3 MCH 30.9 MCHC 34.6 RDW 14.2 Plt Count 155 L MPV 9.5 Absolute Nucleated RBC 0.000 Nucleated RBC % (auto) 0.0 Sodium Cancelled Potassium Chloride Carbon Dioxide Anion Gap BUN Creatinine Estim Creat Clear Calc Estimated GFR Random Glucose Calcium IgG Total 593 L IgA Total 27 L IgM 10 L MIL Interpretation SEE NOTE Cycl Citrul Peptide IgG <16 Double Strand DNA Ab 1 Complement C3 27 L Complement C4 4 L 04/21/25 04/21/25 04/21/25 05:57 05:57 05:57 WBC RBC Hgb Hct MCV MCH MCHC RDW Plt Count MPV Absolute Nucleated RBC Nucleated RBC % (auto) Sodium 142 Potassium Cancelled 3.8 Chloride Cancelled 105 Carbon Dioxide Cancelled Anion Gap BUN Creatinine Estim Creat Clear Calc Estimated GFR Random Glucose Calcium IgG Total IgA Total IgM MIL Interpretation Cycl Citrul Peptide IgG Double Strand DNA Ab Complement C3 Complement C4 04/21/25 04/21/25 04/21/25 05:57 05:57 05:57 WBC RBC Hgb Hct MCV MCH MCHC RDW Plt Count MPV Absolute Nucleated RBC Nucleated RBC % (auto) Sodium Potassium Chloride Carbon Dioxide 26 Anion Gap Cancelled 15 BUN Cancelled 75 H Creatinine Cancelled Estim Creat Clear Calc Estimated GFR Random Glucose Calcium IgG Total IgA Total IgM MIL Interpretation Cycl Citrul Peptide IgG Double Strand DNA Ab Complement C3 Complement C4 04/21/25 04/21/25 04/21/25 05:57 05:57 05:57 WBC RBC Hgb Hct MCV MCH MCHC RDW Plt Count MPV Absolute Nucleated RBC Nucleated RBC % (auto) Sodium Potassium Chloride Carbon Dioxide Anion Gap BUN Creatinine 6.31 H* Estim Creat Clear Calc Cancelled 12.1 Estimated GFR Cancelled 9 Random Glucose Cancelled Calcium IgG Total IgA Total IgM MIL Interpretation Cycl Citrul Peptide IgG Double Strand DNA Ab Complement C3 Complement C4 04/21/25 04/21/25 05:57 05:57 WBC RBC Hgb Hct MCV MCH MCHC RDW Plt Count MPV Absolute Nucleated RBC Nucleated RBC % (auto) Sodium Potassium Chloride Carbon Dioxide Anion Gap BUN Creatinine Estim Creat Clear Calc Estimated GFR Random Glucose 91 Calcium Cancelled 8.2 L IgG Total IgA Total IgM MIL Interpretation Cycl Citrul Peptide IgG Double Strand DNA Ab Complement C3 Complement C4 Appears to have an acute on chronic kidney disease, but baseline is unknown. Has proteinuria with low C3/C4 as well as low immunoglobulins raise the possibilities of fibrillary GN/ Immunotactoid glomerulopathy. Okay to consider C3 glomerulopathy as well. Needs to R/O amyloid. Needs immunohistochemical staining for DNAJB9 in the renal biopsy specimen in addition to [place] Red/ EM. Renal biopsy tomorrow. No indication for renal replacement. May need bone marrow biopsy. Will need EPO soon. Follow up labs ordered. Answered all questions. All recent medical records reviewed. Time spent for reviewing case records , patient encounter and documentation 45 minutes. F/U given Orders: Orders ANCA Vasculitides 1 Week N17.9 - Acute kidney failure, unspecified Complete Blood Count Auto Diff 1 Week N17.9 - Acute kidney failure, unspecified Creatinine 1 Week N17.9 - Acute kidney failure, unspecified Calcium 1 Week N17.9 - Acute kidney failure, unspecified Immunofixation, Random Urine 1 Week N17.9 - Acute kidney failure, unspecified Complete Blood Count Auto Diff 2 Weeks N17.9 - Acute kidney failure, unspecified Hepatitis B Surface Antigen 2 Weeks N17.9 - Acute kidney failure, unspecified Blood Urea Nitrogen 2 Weeks N17.9 - Acute kidney failure, unspecified Calcium 2 Weeks N17.9 - Acute kidney failure, unspecified Phosphorus 2 Weeks N17.9 - Acute kidney failure, unspecified Blood Urea Nitrogen 1 Week N17.9 - Acute kidney failure, unspecified Electrolytes 1 Week N17.9 - Acute kidney failure, unspecified Hepatitis B Core Antibody 2 Weeks N17.9 - Acute kidney failure, unspecified Hepatitis C Antibody Reflex 2 Weeks N17.9 - Acute kidney failure, unspecified IRON PROFILE 2 Weeks N17.9 - Acute kidney failure, unspecified Ferritin 2 Weeks N17.9 - Acute kidney failure, unspecified Electrolytes 2 Weeks N17.9 - Acute kidney failure, unspecified Creatinine 2 Weeks N17.9 - Acute kidney failure, unspecified Coding Level of Care Code Est Pt Level 5 (74585) Diagnoses SACHIN (acute kidney injury) N17.9 Other proteinuria R80.8 Proteinuria type: other
[2025-04-26 15:59] VITALS: BP 110/52; PULSE 66; O2SAT 97; BMI 31.1
== END 2025-04-26 16:42 | disposition home or self-care (01) ==
LOC: HO.HKAS 15:38
PROVIDERS: PCP Physician Assistant Medical; Visit Provider Internal Medicine Nephrology
DX: N17.9 Acute kidney failure, unspecified (principal); R80.8 Other proteinuria
CPT/HCPCS: 99215

== ENCOUNTER → 2025-04-26 15:37 | Outpatient (BNVA) | payer MEDICARE, MEDICAID, SELFPAY | PROVIDERS: PCP Physician Assistant Medical; Visit Provider Internal Medicine Nephrology | DX: N17.9 Acute kidney failure, unspecified (principal); R80.8 Other proteinuria | CPT/HCPCS: 99212 ==

== ENCOUNTER 2025-04-27 08:51 | Day surgery (SDC) | payer MEDICARE, MEDICAID, SELFPAY ==
[2025-04-27] VITALS (14 sets, daily range): BP systolic 111–135; BP diastolic 6–71; PULSE 57–69; RESP 12–129; TEMP 36.1–36.2; O2SAT 97–100; BMI 31.1
--- NOTE | ~2025-04-27 | CT_ITS ---
PROCEDURE: CT GUIDED BIOPSY, KIDNEY CLINICAL INFORMATION: Acute kidney failure COMPARISON: None available. TECHNIQUE: Following explaining CT fluoroscopy guided kidney biopsy procedure, benefits and risk, a written consent was obtained. Patient was placed prone on CT fluoroscopy table and preliminary CT imaging was obtained. An axial slice was selected and markers placed along the right posterior lateral abdomen. Repeat CT imaging was obtained and optimal marker was selected and marked on the skin. The marked skin site was cleaned and draped in usual sterile manner with 2% chlorhexidine solution. 1% lidocaine was injected at puncture site. Through a small skin incision a 20-gauge long guide needle was advanced from the skin to the lower pole of right kidney. Coaxially a 20-gauge gun was advanced and 3 pass biopsy was performed. Post procedure Gelfoam was introduced through the guide needle and guide needle removed. Complete hemostasis was achieved at puncture site with sterile Band-Aid applied postprocedure. Repeat CT imaging revealed no evidence of perinephric or perirenal hematoma. Patient tolerated procedure extremely well. Conscious sedation was administered during exam and patient monitored by our nurse and IR physician. This CT examination was performed using dose optimization techniques as appropriate, variously including the following: *Automated exposure control *Adjustment of mA and/or kV according to patient size (this includes techniques or standardized protocols for targeted exams where dose is matched to indication/reason for exam; i.e. extremities or head) *Use of iterative reconstruction technique. FINDINGS: On coronary CT imaging there is normal symmetrical activity in kidneys with bilateral perinephric stranding. No radiopaque calculi or hydronephrosis. Partially visualized liver, spleen, adrenal glands and the gallbladder is unremarkable. CT fluoroscopy guided lower pole right kidney core biopsies performed with a 20-gauge needle. No immediate complications seen. CT/CT biopsy renal RT IMPRESSION: Successful CT fluoroscopy guided right renal core biopsy performed. DLP: 627 mGy/cm. Sedation time: 38 minutes Electronically signed by: Jon Jenkins MD 04/27/2025 02:51 PM EDT
[2025-04-27] MEDS: Lidocaine HCl 1 % MPF 30 ML VIAL 10 ML SUBCUT (11:32)
== END 2025-04-27 13:34 | disposition home or self-care (01) ==
LOC: HO.SSS 08:53
PROVIDERS: Radiology Diagnostic Radiology; PCP Physician Assistant Medical; Visit Provider Nurse Practitioner Family
DX: N17.9 Acute kidney failure, unspecified (principal); I12.9 Hypertensive chronic kidney disease with stage 1 through stage 4 chronic kidney disease, or unspecified chronic kidney disease; N18.9 Chronic kidney disease, unspecified; M79.89 Other specified soft tissue disorders; R53.83 Other fatigue; Z79.899 Other long term (current) drug therapy; Z98.890 Other specified postprocedural states; Z87.891 Personal history of nicotine dependence
CPT/HCPCS: 50200; 77012; 86850; 86900; 86901; 88300; 88305; 88313; 88346; 88348; 88350; 99152; 99153; J2003; J2250; J3010

== ENCOUNTER → 2025-04-27 10:18 | Outpatient (BNV) | payer MEDICARE, MEDICAID, SELFPAY | PROVIDERS: PCP Physician Assistant Medical; Visit Provider Radiology Diagnostic Radiology | DX: N17.9 Acute kidney failure, unspecified (principal) | CPT/HCPCS: 50200; 77012 ==

== ENCOUNTER 2025-05-03 12:02 | Outpatient (REF) | payer MEDICARE, MEDICAID, SELFPAY ==
[2025-05-03 13:11] LABS: MANUAL DIFF FLAG NO
[2025-05-03 13:31] LABS: Hematocrit 27.3 % (42.0-52.0); Hemoglobin 9.1 g/dl (14.0-18.0); Imm Gran Abs Auto 0.19 X10*3/uL (0.00-0.03); Imm Gran Pct Auto 2.1 % (0.0-0.4); Lymphocytes Absolute Auto 0.5 X10*3/uL (1.2-4.9); Mean Corpuscular HGB Conc 33.3 g/dl (31.0-36.0); Mean Corpuscular Hemoglobin 30.1 pg (27.0-33.0); Mean Corpuscular Volume 90.4 fL (80.0-98.0); NRBC Abs Auto 0.000 X10*3/uL (0.0-0.012); NRBC Pct Auto 0.0 /100WBC (0.0-0.2); Platelet Count 240 X10*3/uL (160-400); Red Blood Count 3.02 X10*6/uL (4.60-5.80); White Blood Count 8.9 X10*3/uL (4.8-10.8)
[2025-05-03 14:05] LABS: Anion Gap 14 (12-20); Blood Urea Nitrogen 103 mg/dL (9-16); Calcium 8.4 mg/dL (8.4-10.2); Carbon Dioxide 20 mmol/L (22-29); Chloride 107 mmol/L (96-108); Estimated Glomerular Filt Rate 9; Potassium 4.7 mmol/L (3.3-5.1); Sodium 136 mmol/L (135-145)
[2025-05-05 22:48] LABS: Proteinase 3 PR3 Antibodies <1.0 AI
== END 2025-05-03 12:03 | disposition home or self-care (01) ==
LOC: HO.HMGCLDS 12:02
PROVIDERS: PCP Physician Assistant Medical; Visit Provider Internal Medicine Nephrology
DX: Z01.84 Encounter for antibody response examination (principal); N17.9 Acute kidney failure, unspecified
CPT/HCPCS: 80051; 82310; 82565; 84520; 85025; 86021

== ENCOUNTER 2025-05-20 07:36 | Outpatient (REF) | payer MEDICARE, MEDICAID, SELFPAY ==
--- NOTE | ~2025-05-20 | XR_ITS ---
EXAMINATION: XR HAND 3 VIEWS BILATERAL HISTORY: M79.643 - Pain in unspecified hand COMPARISON: Comparison is made with the prior examination dated 04/17/2025. FINDINGS: Six views of the bilateral hands are submitted. Osseous mineralization is normal. There is no fracture or dislocation. 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 There is mild narrowing of the DIP joints. The soft tissues are unremarkable. XR/XR Hand Bilat min 3v IMPRESSION: Degenerative changes of the bilateral hands as described. Electronically signed by: Mick Rodrigez MD 05/20/2025 11:10 AM EDT
== END 2025-05-20 07:37 | disposition home or self-care (01) ==
LOC: HO.HOSX 07:36
DX: M79.641 Pain in right hand (principal); M79.642 Pain in left hand; R20.0 Anesthesia of skin; R20.2 Paresthesia of skin
CPT/HCPCS: 73130; 99212

== ENCOUNTER 2025-05-20 10:11 | Outpatient (AMB) | payer MEDICARE, MEDICAID, SELFPAY ==
--- NOTE | 2025-05-20 10:18 | MHC.OFFVIS ---
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 Patient was consulted while admitted at [facility] [place] on 04/18/25. While admitted, a referral to occupational therapy was placed. Pt states he was not called to start OT. Pt states he has numbness and tingling his his fingers and pt also states he has locking in some fingers. Pt denies any radiating pain. 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 Patient was consulted while admitted at [facility] [place] on 04/18/25. While admitted, a referral to occupational therapy was placed. Pt states he was not called to start OT. Pt states he has numbness and tingling his his fingers and pt also states he has locking in some fingers. Pt denies any radiating pain. [facility] Medical History Gout Pre-diabetes Hypertension CKD (chronic kidney disease) Hospital discharge follow-up Establishing care with new doctor, encounter for Enlarged prostate Surgical History Hx of colonoscopy Hx of umbilical hernia repair Hx of right inguinal hernia repair Family History Father Congenital heart failure Mother Arthritis Social History Household Members: Spouse and Family Housing: House Do you presently have visiting nurse or other home services: No Alcohol intake: current Alcohol intake frequency: does not drink Patient Tobacco Use Status: Former Tobacco user service: No Current occupational status: retired Cognitive needs: No Hearing needs: No Vision needs: Yes (rx glasses) Review of Systems Const All systems reviewed & are unremarkable except as noted in HPI and below Physical Exam Vital Signs: BMI result Body Mass Index 31.0 Extrem Other: Neuro: Diminished sensation in all digits of bilateral hands in the office today No thenar or intrinsic wasting. Good APB muscle firing and good finger cross. Vascular: Capillary refill brisk. ROM: Patient can make a fist and extend all their digits. No visible or palpable locking and catching Skin: No lacerations or abrasions noted. General: No ecchymosis. No erythema or evidence of infection. Assessment & Plan Assessment & Plan (1) Numbness and tingling in both hands: Code(s): R20.0 - Anesthesia of skin; R20.2 - Paresthesia of skin Category: Medical Plan 1. Numbness and tingling of both hands Constant, daily, worse at night EMG and nerve conduction study ordered to assess the health of the nerves of bilateral upper extremities Patient will follow-up after EMG and nerve conduction study for results review and discussion of further treatment options if indicated, namely surgical intervention for carpal or cubital tunnel syndromes Patient states understanding of this and is amenable to this plan Follow-up after studies Orders: Orders XR Hand Bilat min 3v Today M79.643 - Pain in unspecified hand NE nerve conduction velocity Today R20.0 - Anesthesia of skin, R20.2 - Paresthesia of skin NE electromyogram (EMG) Today R20.0 - Anesthesia of skin, R20.2 - Paresthesia of skin Coding Level of Care Code New Pt Level 3 (86465) Diagnoses Numbness and tingling in both hands R20.0; R20.2
[2025-05-20 10:21] VITALS: BMI 31.0
== END 2025-05-20 10:50 | disposition home or self-care (01) ==
LOC: HO.HOS 10:12
PROVIDERS: PCP Internal Medicine
DX: R20.0 Anesthesia of skin (principal); R20.2 Paresthesia of skin
CPT/HCPCS: 99213

== ENCOUNTER → 2025-05-20 10:17 | Outpatient (BNV) | payer MEDICARE, MEDICAID, SELFPAY | PROVIDERS: Visit Provider Radiology Diagnostic Radiology | DX: M79.643 Pain in unspecified hand (principal) | CPT/HCPCS: 73130 ==

== ENCOUNTER 2025-05-23 10:19 | Outpatient (REF) | payer MEDICARE, MEDICAID, SELFPAY ==
[2025-05-23 13:18] LABS: MANUAL DIFF FLAG NO
[2025-05-23 13:20] LABS: Hematocrit 26.9 % (42.0-52.0); Hemoglobin 8.7 g/dl (14.0-18.0); Imm Gran Abs Auto 0.19 X10*3/uL (0.00-0.03); Imm Gran Pct Auto 1.8 % (0.0-0.4); Lymphocytes Absolute Auto 0.6 X10*3/uL (1.2-4.9); Mean Corpuscular HGB Conc 32.3 g/dl (31.0-36.0); Mean Corpuscular Hemoglobin 30.3 pg (27.0-33.0); Mean Corpuscular Volume 93.7 fL (80.0-98.0); NRBC Abs Auto 0.000 X10*3/uL (0.0-0.012); NRBC Pct Auto 0.0 /100WBC (0.0-0.2); Red Blood Count 2.87 X10*6/uL (4.60-5.80); White Blood Count 10.4 X10*3/uL (4.8-10.8)
[2025-05-23 13:28] LABS: Platelet Count 143 X10*3/uL (160-400)
[2025-05-23 13:55] LABS: Anion Gap 14 (12-20); Blood Urea Nitrogen 105 mg/dL (9-16); Calcium 8.0 mg/dL (8.4-10.2); Carbon Dioxide 15 mmol/L (22-29); Chloride 115 mmol/L (96-108); Estimated Glomerular Filt Rate 14; Iron 127 mcg/dL (45-160); Percent Iron Saturation 49 % (15-50); Potassium 4.7 mmol/L (3.3-5.1); Sodium 139 mmol/L (135-145); Total Iron Binding Capacity 257 mcg/dL (228-428); Unsaturated Iron Binding 130 ug/dL
[2025-05-23 14:04] LABS: Ferritin 660 ng/mL (20-250)
[2025-05-24 08:02] LABS: HBc Num1 0.03 S/CO (0.00-0.79); HBsAGNum1 0.53 S/CO (0.00-0.99); Hepatitis B Surface Antigen Negative (Negative); ~HepC Num1 0.35 S/CO (0.00-0.79); ~Hepatitis C Antibody Nonreactive (Nonreactive)
== END 2025-05-23 10:20 | disposition home or self-care (01) ==
LOC: HO.HMGCLDS 10:19
PROVIDERS: PCP Physician Assistant Medical; Visit Provider Internal Medicine Nephrology
DX: Z11.59 Encounter for screening for other viral diseases (principal); N17.9 Acute kidney failure, unspecified; Z72.89 Other problems related to lifestyle
CPT/HCPCS: 36415; 80051; 82310; 82565; 82728; 83540; 84520; 85025; 86335; 86704; 86803; 87340

== ENCOUNTER 2025-05-27 15:19 | Outpatient (AMB) | payer MEDICARE, MEDICAID, SELFPAY ==
--- NOTE | 2025-05-27 15:26 | HO.NEPHOV ---
Vital Signs 05/27/25 15:28 Height 5 ft 7 in Weight 201 lb 8 oz BMI 31.6 BP 104/60 Blood Pressure Location Rt brachial Position Sitting Pulse 75 Pulse Source Pulse Oximeter Pulse Oximetry (%) 99 Oxygen Delivery Method Room Air Intake Visit Reasons: Aug f/u w/labs-Conf w/ Electrician Crane Maintenance Required: No Accompanied by: Spouse Allergies No Known Allergies Allergy (Verified 05/27/25 15:27) HPI Comments Details: Kevin Hubbard is a 69 years old man with no significant past medical history who recently presented to [facility] complaining of ongoing pain to both hands associated with swelling for at least 2 weeks. He has been taking 600 - 800 mg of Advil at least twice day for the pain prior to presentation. He also had diclofenac received from an urgent care facility prior to hospital presentation. He did not report headache, palpitation, chest pain, shortness on breath, abdominal pain, nausea, vomiting, diarrhea or black/bloody stools, fever or chills or urinary symptoms. He has no history of diabetes mellitus, hypertension, remote of arthritis, hyperlipidemia, MIs, CVA or kidney problems. He does not follow routinely with the primary doctor. He does not take any daily medications other than Advil. He is a former smoker. Did not report alcohol abuse or illicit drug use. In the ER, he was found to have stable vital signs with. elevated BP . Blood workup showed no leukocytosis. Hemoglobin is 7.4 --> 7.8, hematocrit 23.9 and MCV is 87.3. Platelets were 224. Potassium is 5.4 -> 5.5. Lipase elevated, 128. Abdominal pelvis CT scan without contrast showed prostatomegaly with mass effect in the urinary bladder base, no acute obstructive uropathy or urolithiasis, possible uncomplicated epidermal inclusion cyst versus liquified hematoma . Bilateral hand x-ray showed no acute fracture or dislocation, it did showed mild/early non erosive antritis changes. ECG showed normal sinus rhythm with frequent PVCs and no ischemic changes. He was hydrated with IVF, potassium corrected with Lokelma & metabolic acidosis resolved with Bicarb. His creatinine remained stable suggesting chronic kidney disease. His anemia was thought to be due to CKD and has remained stable after 2 units of RBC rising from Hgb rising from 6 to 8, He denies uremic symptoms and making good amount of urine. 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 His renal function has improved marginally. He had an acute attack of gout and was treated with prednisone and colchicine. He has not seen a utility mechanic yet. [facility] Medical History (Updated 05/27/25 @ 16:25 by Fer Munroe MD) Gout Pre-diabetes Hypertension CKD (chronic kidney disease) Hospital discharge follow-up Establishing care with new doctor, encounter for Enlarged prostate Surgical History Hx of colonoscopy Hx of umbilical hernia repair Hx of right inguinal hernia repair Family History Father Congenital heart failure Mother Arthritis Social History Household Members: Spouse and Family Housing: House Do you presently have visiting nurse or other home services: No Alcohol intake: current Alcohol intake frequency: does not drink Patient Tobacco Use Status: Former Tobacco user service: No Current occupational status: retired Cognitive needs: No Hearing needs: No Vision needs: Yes (rx glasses) Review of Systems Const All systems reviewed & are unremarkable except as noted in HPI and below Physical Exam Vital Signs: Last Vital Signs Pulse 75 05/27/25 15:28 BP 104/60 05/27/25 15:28 Pulse Ox 99 05/27/25 15:28 Oxygen Delivery Method Room Air 05/27/25 15:28 BMI result Body Mass Index 31.6 Const General: comfortable and no acute distress Orientation/consciousness: patient oriented x3 HEENT Head: Yes normocephalic Mouth: Normal oral and palatal mucosa present Eyes EOM: EOMs intact bilaterally Neck Neck: Yes supple Resp Auscultation: clear to auscultation bilaterally Cardio Jugular venous distension: no JVD Rate: regular rate GI Palpation (GI): Soft to palpation Auscultation: normal bowel sounds General: Yes no CVA tenderness Back/Spine/Pelvis Back: no CVA tenderness Skin General skin exam: no rashes or lesions noted Neuro General: patient oriented x3 and moves all extremities Results Reviewed Nephrology Results: Hgb, (14.0-18.0) 8.7 g/dl L 05/23/25 WBC, (4.8-10.8) 10.4 X10*3/uL 05/23/25 Plt Count, (160-400) 143 X10*3/uL L Δ 05/23/25 Sodium, (135-145) 139 mmol/L 05/23/25 Potassium, (3.3-5.1) 4.7 mmol/L 05/23/25 Chloride, (96-108) 115 mmol/L H 05/23/25 Carbon Dioxide, (22-29) 15 mmol/L L 05/23/25 BUN, (9-16) 105 mg/dL H 05/23/25 Creatinine, (0.5-1.4) 4.21 mg/dL H* 05/23/25 Calcium, (8.4-10.2) 8.0 mg/dL L 05/23/25 Renal US 04/18/25 Assessment & Plan Assessment & Plan (1) SACHIN (acute kidney injury): Code(s): N17.9 - Acute kidney failure, unspecified Category: Medical (2) Anemia: Code(s): D64.9 - Anemia, unspecified Category: Medical Qualifiers: Anemia type: unspecified type Qualified Code(s): D64.9 - Anemia, unspecified (3) 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 Has proteinuria with low C3/C4 as well as low immunoglobulins . Had a renal biopsy which showed ATN and cast nephropathy. No indication for renal replacement. Needs bone marrow biopsy. ( referred to Hematology). Will need EPO soon. Started Allopurinol 100 mg daily and NaHCO3 daily. Follow up labs ordered. Answered all questions. F/U given Orders: Orders Complete Blood Count Auto Diff 3 Weeks D64.9 - Anemia, unspecified, N17.9 - Acute kidney failure, unspecified Creatinine 3 Weeks D64.9 - Anemia, unspecified, N17.9 - Acute kidney failure, unspecified Ferritin 3 Weeks D64.9 - Anemia, unspecified, N17.9 - Acute kidney failure, unspecified IRON PROFILE 3 Weeks D64.9 - Anemia, unspecified, N17.9 - Acute kidney failure, unspecified Electrolytes 3 Weeks D64.9 - Anemia, unspecified, N17.9 - Acute kidney failure, unspecified Calcium 3 Weeks D64.9 - Anemia, unspecified, N17.9 - Acute kidney failure, unspecified Blood Urea Nitrogen 3 Weeks D64.9 - Anemia, unspecified, N17.9 - Acute kidney failure, unspecified Referrals Hematology & Oncology Referral D89.2 - Hypergammaglobulinemia, unspecified Medications: New allopurinol 100 mg PO DAILY 90 tabs 3RF sodium bicarbonate 650 mg PO DAILY 90 tabs 3RF Coding Level of Care Code Est Pt Level 4 (43330) Diagnoses SACHIN (acute kidney injury) N17.9 Anemia, unspecified type D64.9 Anemia type: unspecified type Paraproteinemia D89.2 Acute gout due to renal impairment involving multiple sites M10.39 Gout site: multiple sites Gout etiology: due to renal impairment Chronicity: acute Metabolic acidosis E87.20
[2025-05-27 15:28] VITALS: BP 104/60; PULSE 75; O2SAT 99; BMI 31.6
== END 2025-05-27 15:58 | disposition home or self-care (01) ==
LOC: HO.HKA 15:20
PROVIDERS: PCP Physician Assistant Medical; Visit Provider Internal Medicine Nephrology
DX: N17.9 Acute kidney failure, unspecified (principal); D64.9 Anemia, unspecified; D89.2 Hypergammaglobulinemia, unspecified; M10.39 Gout due to renal impairment, multiple sites; E87.20 Acidosis, unspecified
CPT/HCPCS: 99214

== ENCOUNTER → 2025-05-27 15:19 | Outpatient (BNVA) | payer MEDICARE, MEDICAID, SELFPAY | PROVIDERS: PCP Physician Assistant Medical; Visit Provider Internal Medicine Nephrology | DX: M10.39 Gout due to renal impairment, multiple sites (principal); N17.9 Acute kidney failure, unspecified; D64.9 Anemia, unspecified; D89.2 Hypergammaglobulinemia, unspecified; E87.20 Acidosis, unspecified | CPT/HCPCS: 99212 ==

== ENCOUNTER → 2025-06-13 10:00 | Outpatient (BNV) | payer MEDICARE, MEDICAID, SELFPAY | PROVIDERS: Referring Provider Internal Medicine Nephrology; Visit Provider Internal Medicine Medical Oncology | DX: D47.2 Monoclonal gammopathy (principal); R77.9 Abnormality of plasma protein, unspecified | CPT/HCPCS: 99213 ==

== ENCOUNTER 2025-06-16 10:56 | Outpatient (REF) | payer MEDICARE, MEDICAID, SELFPAY ==
--- NOTE | ~2025-06-16 | XR_ITS ---
EXAMINATION: XR CHEST 2 VIEWS HISTORY: Z00.00 - Encounter for general adult medical examination without abnormal... COMPARISON: There are no prior studies available for comparison. FINDINGS: PA and lateral views of the chest are submitted. The lungs are expanded and clear. There is no pleural effusion, pneumothorax, or pulmonary vascular congestion. The heart is normal in size. There is mild degenerative disc disease of the spine. XR/XR chest 2V IMPRESSION: Clear lungs. Electronically signed by: Mick Rodrigez MD 06/16/2025 01:29 PM EDT
[2025-06-16 13:09] LABS: MANUAL DIFF FLAG NO
[2025-06-16 13:41] LABS: Hematocrit 26.7 % (42.0-52.0); Hemoglobin 9.0 g/dl (14.0-18.0); Imm Gran Abs Auto 0.06 X10*3/uL (0.00-0.03); Imm Gran Pct Auto 1.2 % (0.0-0.4); Lymphocytes Absolute Auto 0.6 X10*3/uL (1.2-4.9); Mean Corpuscular HGB Conc 33.7 g/dl (31.0-36.0); Mean Corpuscular Hemoglobin 30.5 pg (27.0-33.0); Mean Corpuscular Volume 90.5 fL (80.0-98.0); NRBC Abs Auto 0.000 X10*3/uL (0.0-0.012); NRBC Pct Auto 0.0 /100WBC (0.0-0.2); Platelet Count 212 X10*3/uL (160-400); Red Blood Count 2.95 X10*6/uL (4.60-5.80); White Blood Count 5.0 X10*3/uL (4.8-10.8)
[2025-06-16 14:07] LABS: B Type Natriuretic Peptide 93 pg/mL (<100)
[2025-06-16 14:30] LABS: PSA,Total (Free>4and<10) 9.20 ng/mL (0.00-4.00)
[2025-06-16 14:37] LABS: Folate 9.5 ng/mL (> or = 4.0); Vitamin B12 343 pg/mL (200-900)
[2025-06-16 14:46] LABS: Alanine Aminotransferase 9 U/L (0-40); Albumin Level 4.2 g/dL (3.5-5.0); Alkaline Phosphatase 98 U/L (39-117); Anion Gap 16 (12-20); Aspartate Amino Transferase 13 U/L (5-37); Blood Urea Nitrogen 72 mg/dL (9-16); Calcium 8.9 mg/dL (8.4-10.2); Carbon Dioxide 17 mmol/L (22-29); Chloride 109 mmol/L (96-108); Estimated Glomerular Filt Rate 12; Magnesium 2.3 mg/dL (1.6-2.6); Potassium 4.4 mmol/L (3.3-5.1); Sodium 138 mmol/L (135-145); Total Protein 6.4 g/dL (6.5-8.0); Uric Acid 5.9 mg/dL (3.4-7.0)
[2025-06-17 16:38] LABS: Microalbum/Creatinine Ratio Ur 48.3 ug/mg cr (<30)
[2025-06-18 06:24] LABS: Free Prostate Spec Ag 2.5 ng/mL; Percent Free Prostate Spec Ag 30 % (calc) (>25)
== END 2025-06-16 10:57 | disposition home or self-care (01) ==
LOC: HO.LAB 10:56
PROVIDERS: PCP Physician Assistant Medical; Visit Provider Physician Assistant Medical
DX: Z00.00 Encounter for general adult medical examination without abnormal findings (principal); Z12.5 Encounter for screening for malignant neoplasm of prostate; Z28.82 Immunization not carried out because of caregiver refusal; M19.041 Primary osteoarthritis, right hand; M19.042 Primary osteoarthritis, left hand; M79.89 Other specified soft tissue disorders; D47.2 Monoclonal gammopathy; D64.9 Anemia, unspecified; R23.8 Other skin changes; M10.39 Gout due to renal impairment, multiple sites; R60.0 Localized edema; E11.9 Type 2 diabetes mellitus without complications; Z79.891 Long term (current) use of opiate analgesic; Z79.899 Other long term (current) drug therapy
CPT/HCPCS: 36415; 71046; 80053; 82043; 82248; 82306; 82570; 82607; 82746; 83036; 83735; 83880; 84153; 84154; 84443; 84550; 85025; 86140; 90471; 96127; 99212

== ENCOUNTER 2025-06-16 10:56 | Outpatient (AMB) | payer MEDICARE, MEDICAID, SELFPAY ==
--- NOTE | 2025-06-16 10:57 | A.OFFPC_ITS ---
Vital Signs 06/16/25 11:09 Height 5 ft 6.54 in Weight 199 lb BMI 31.6 BP 114/55 L Respiration 16 Pulse 68 Pulse Source Pulse Oximeter Temp 98.3 F Temp Source Temporal Artery Scan Pulse Oximetry (%) 97 Oxygen Delivery Method Room Air Intake Visit Reasons: physical Airplane First Officer Required: No Accompanied by: Spouse Allergies No Known Allergies Allergy (Verified 06/16/25 16:02) Medication List - Last Reconciled 06/16/25 by Ami Almanza PA-C allopurinol 100 mg PO DAILY amlodipine 10 mg See Protocol PO DAILY gentamicin 0.1% 1 appl topical QID labetalol 100 mg See Protocol PO BID oxycodone 5 mg PO BID PRN 30 days sodium bicarbonate 650 mg PO DAILY Tobacco use date assessed: 04/22/25 Fall risk assessment: No Falls in past year Last assessed Fall Risk: 06/16/25 Dental Screening Dental Screen Date: 04/22/25 Did you have a dental visit in the last 12 months?: No Did you have a dental problem in the last 6 months where you did not have access to dental care?: No HPI physical HPI Details The patient is a 69-year-old male presenting for a physical examination and to address ongoing health concerns. The patient has a history anemia and is currently being followed by Dr. Gloria for evaluation of MGUS versus multiple myeloma and further blood work and evaluations have been performed and pending at this time. He was recently seen at the hospital for blood transfusion he received 2 packs red blood cells and 1 IV fluids. He has a history of chronic elevated creatinine levels and CKD currently being followed by Nephrology has follow-up this week. The patient reports peripheral edema, which worsened after a recent blood transfusion, suggesting possible fluid overload. He has been advised to avoid salt, but no specific dietary plan was provided. The edema initially improved with prednisone but recurred after discontinuation. The patient experiences significant pain in his hands and hips, which is not adequately managed by tramadol. He has a history of gout, and colchicine is no longer part of his regimen. The pain disrupts his sleep, and stronger pain management options are being considered. The patient has been experiencing redness and swelling in his feet, raising concerns about a possible skin infection. A topical ointment and antibiotics have been recommended for treatment. Social history - Functional status: The patient experie nces significant pain in his hands and hips, affecting his ability to sleep and requiring him to stand frequently. - Current nutritional intake: Advised to avoid salt, but no specific dietary plan was provided. [facility] Medical History (Updated 06/16/25 @ 16:18 by Ami Almanza PA-C) Muscular deconditioning Localized swelling of both lower legs Skin irritation Peripheral edema MGUS (monoclonal gammopathy of unknown significance) Encounter for preventive care Gout Pre-diabetes Hypertension CKD (chronic kidney disease) Hospital discharge follow-up Establishing care with new doctor, encounter for Enlarged prostate Surgical History Hx of colonoscopy Hx of umbilical hernia repair Hx of right inguinal hernia repair Family History Father Congenital heart failure Mother Arthritis Social History Household Members: Spouse and Family Housing: House Do you presently have visiting nurse or other home services: No Alcohol intake: current Alcohol intake frequency: does not drink Patient Tobacco Use Status: Former Tobacco user Tobacco use type: Cigarette service: No Current occupational status: retired Cognitive needs: No Hearing needs: No Vision needs: Yes (rx glasses) Questionnaire Thrive Questionnaire Date Thrive assessed: 06/16/25 I am a: Patient What is your living situation today?: I have a steady place to live Within the past 12 months, did the food you bought not last and you didn't have the money to get more?: Never true Within the past 12 months, did you worry whether your food would run out before you got money to buy more?: Never true Do you have trouble paying for medicines?: No Do you have trouble getting transportation to medical appointments?: No Do you have trouble paying your heating and electricity bill?: No Do you have trouble taking care of your child, family member or friend?: No Do you have trouble with day-to-day activities such as bathing, preparing meals, shopping, managing finances, etc.?: No Are you currently unemployed and looking for a job?: No Are you interested in more education?: No Please select the resources that you would like help with: None THRIVE Score: 0 AUDIT C Alcohol Use Questionnaire (AUDIT-C) 1. How often do you have a drink containing alcohol?: Never 3. How often do you have six or more drinks on one occasion?: Never Total Score: 0 Score Reviewed/Action Taken: No FELICITA-7 AMB Questionnaire FELICITA-7 Date FELICITA - 7 assessed: 06/16/25 Feeling nervous, anxious, or on edge: 0 = Not at all Not being able to stop or control worryin = Not at all Worrying too much about different things: 0 = Not at all Trouble relaxin = Not at all Being so restless that it is hard to sit still: 0 = Not at all Becoming easily annoyed or irritable: 0 = Not at all Feeling afraid as if something awful might happen: 0 = Not at all Total FELICITA-7 score (0-4 normal; 5-9 mild; 10-14 moderate; 15-21 severe): 0 Source: Developed by Drs. Mick Lou, Suzy Beltrán, Kuldeep Burrell and colleagues, with an educational angela from [employer]. FELICITA-7 Assessment Billing FELICITA-7 Assessment Tool: FELICITA-7 Assessment 41105 Review of Systems Const Details: - General: Reports fatigue and difficulty sleeping due to pain. - Cardiovascular: Denies chest pain or shortness of breath. - Musculoskeletal: Reports pain in hands and hips, history of gout. - Integumentary: Reports redness and swelling in feet. All systems reviewed & are unremarkable except as noted in HPI and below Physical exam (Primary Care) Vital Signs: Last Vital Signs Temp 98.3 F 06/16/25 11:09 Pulse 68 06/16/25 11:09 Resp 16 06/16/25 11:09 BP 114/55 L 06/16/25 11:09 Pulse Ox 97 06/16/25 11:09 Oxygen Delivery Method Room Air 06/16/25 11:09 Care Plan Goal for BP management: <140/90 at Goal BMI result Body Mass Index 31.6 BMI Assessment/Plan discussion: High BMI High, discussed plan: lifestyle, weight reduction, dietary, physical activity, alcohol moderation and other Tobacco/Smoking Status: Tobacco use Status Tobacco use date assessed 04/22/25 06/16/25 10:57 Patient Tobacco Use Status Former Tobacco user 06/16/25 10:57 Tobacco use type Cigarette 06/16/25 10:57 Thrive Assessment: Date of Thrive Assessment Date Thrive assessed 06/16/25 06/16/25 11:14 Const Other: Appearance: Alert. Oriented X3. No acute distress. Head: Normal external exam. Normocephalic. Atraumatic. Eyes: Pupils are equal, round, and reactive to light. Extraocular movements intact. Conjunctiva and sclera normal. Eyelids normal. Ears: External auditory canal normal. Tympanic membranes normal. Throat: Pharynx normal. Uvula midline. Moist mucous membranes. Neck: Normal inspection. Neck supple. Full range of motion. No adenopathy. Thyroid Normal. No meningeal signs. No neck mass noted. Cardiovascular: Normal heart rate and rhythm. Heart sound normal. No murmurs noted. Pulses normal throughout. Respiratory: No respiratory distress. Painless inspiration. Breath sounds normal. No wheezes/rales/rhonchi noted. Chest nontender. No accessory muscle usage noted or decreased air movement noted. Abdomen: Soft and nontender. Bowel sounds normal in all 4 quadrants. No distention noted. No organomegaly noted. Back: No costovertebral angle tenderness. Full range of motion noted. Skin: Skin warm and dry. Yellowish discoloration noted. Normal skin turgor. No rashes/lesions/lacerations noted. Extremities: Lower extremity edema noted. Extremities exhibit normal range of motion. Patient reporting pain to bilateral lower extremities due to edema and bilateral hands due to gout. He does not have any calf tenderness to lower extremities. Neuro: Oriented X 3. No motor deficit. No sensory deficit. Reflexes normal. Office Procedures Flu Questionnaire Does the patient have a severe egg allergy?: No Does the patient have severe life threatening allergies?: No Does the patient have a fever or illness today?: No Has the patient ever had Guillain-[place] Syndrome?: No Has the patient ever had any past reaction to a flu shot?: No Immunizations Fluarix [id number] (PF) 45 mcg (15 mcg x 3)/0.5 mL IM syringe Performing Provider: Ami Almanza PA-C Performing [facility] Documented (not given) by: EARLE Dang on 06/16/25 11:15 Reason Not Given: Patient Refused Results Reviewed Results Reviewed: - Labs: Elevated creatinine, anemia, elevated protein level with monoclonal gammopathy, elevated free light chain ratio. - Tests: Scheduled blood work including SIEP, free light chain ratio, beta-2 microglobulin. Coding Level of Care Code Est Pt Level 4 (45814) Complex EM visit Add On G2211 Diagnoses MGUS (monoclonal gammopathy of unknown significance) D47.2 Anemia, unspecified type D64.9 Anemia type: unspecified type Peripheral edema R60.0 Skin irritation R23.8 Acute gout due to renal impairment involving multiple sites M10.39 Gout site: multiple sites Gout etiology: due to renal impairment Chronicity: acute Additional Codes FELICITA-7 Assessment Billing - FELICITA-7 Assessment Tool: FELICITA-7 Assessment 84777 ([id number]) Time Spent (min) 55 Assessment & Plan Assessment & Plan (1) MGUS (monoclonal gammopathy of unknown significance): Code(s): D47.2 - Monoclonal gammopathy Category: Medical Plan: The patient is under evaluation for MGUS with a differential diagnosis of multiple myeloma. Further blood work including SIEP, free light chain ratio, and beta-2 microglobulin has been planned to monitor the condition. (2) Anemia: Code(s): D64.9 - Anemia, unspecified Category: Medical Qualifiers: Anemia type: unspecified type Qualified Code(s): D64.9 - Anemia, unspecified Plan: The patient has been receiving blood transfusions to manage anemia. Regular monitoring of hemoglobin levels is recommended. Patient to continue following up with Hematology Dr. Gloria. (3) Peripheral edema: Code(s): R60.0 - Localized edema Category: Medical Plan: The patient reports worsening peripheral edema, possibly due to fluid overload after blood transfusions. A chest x-ray and repeat blood work have been ordered to assess fluid status and rule out heart failure. Although blood work was reviewed and patient's anemia is improved, CKD mildly worsened and BNP is negative and chest x-ray was negative no evidence of fluid overload. (4) Skin irritation: Code(s): R23.8 - Other skin changes Category: Medical Plan: The patient presents with redness and swelling in the feet, suggestive of a possible skin infection. Topical antibiotics and a referral to a plug overwrap machine tender have been recommended. (5) Gout: Code(s): M10.9 - Gout, unspecified Category: Medical Qualifiers: Gout site: multiple sites Gout etiology: due to renal impairment Chronicity: acute Qualified Code(s): M10.39 - Gout due to renal impairment, multiple sites Plan: The patient experiences significant joint pain, likely due to gout, which is not adequately managed by current medications. Consideration for stronger pain management options is underway. I discussed this with Dr. Gloria we decided that the patient will be started on oxycodone 5 mg twice a day instead of the tramadol 50 mg. Patient will have to come every 30 days for medication refill. At his next visit he will need to sign a pain contract. We will give him Narcan. He will be scheduled for random drugs test and random pill counts. Plan Plan Patient was informed and verbally consented to the use of an ambient scribe for clinic note documentation during this visit. 1. Monoclonal Gammopathy Of Undetermined Significance (Mgus) The patient is under evaluation for MGUS with a differential diagnosis of multiple myeloma. Further blood work including SIEP, free light chain ratio, and beta-2 microglobulin has been planned to monitor the condition. 2. Anemia The patient has been receiving blood transfusions to manage anemia. Regular monitoring of hemoglobin levels is recommended. 3. Peripheral Edema The patient reports worsening peripheral edema, possibly due to fluid overload after blood transfusions. A chest x-ray and repeat blood work have been ordered to assess fluid status and rule out heart failure. 4. Possible Skin Infection The patient presents with redness and swelling in the feet, suggestive of a possible skin infection. Topical antibiotics and a referral to a plug overwrap machine tender have been recommended. 5. Gout The patient experiences significant joint pain, likely due to gout, which is not adequately managed by current medications. Consideration for stronger pain manag ement options is underway. I discussed with the patient the need for further evaluation of his MGUS and the possibility of multiple myeloma, emphasizing the importance of follow-up blood work and monitoring. We also addressed the management of his anemia through blood transfusions and the need for regular hemoglobin monitoring. The patient was informed about the potential fluid overload contributing to his peripheral edema, and a chest x-ray was ordered to assess for heart failure. For his skin condition, I recommended topical antibiotics and a referral to a plug overwrap machine tender. We discussed pain management options for his gout, considering stronger medications to improve his quality of life. Orders: Orders Influenza [id number] Immunization Today Z23 - Encounter for immunization Comprehensive Met. Panel Today Z00.00 - Encounter for general adult medical examination without abnormal findings B Type Natriuretic Peptide Today R60.0 - Localized edema XR chest 2V Today Z00.00 - Encounter for general adult medical examination without abnormal findings Microalbumin, Random (w Creat) Today E11.9 - Type 2 diabetes mellitus without complications Referrals [facility] Referral I10 - Essential (primary) hypertension, M10.39 - Gout due to renal impairment, multiple sites, M19.041 - Primary osteoarthritis, right hand, M19.042 - Primary osteoarthritis, left hand, M19.90 - Unspecified osteoarthritis, unspecified site, M79.89 - Other specified soft tissue disorders, R22.43 - Localized swelling, mass and lump, lower limb, bilateral, R23.8 - Other skin changes, R29.898 - Other symptoms and signs involving the musculoskeletal system, R60.0 - Localized edema Medications: New oxycodone Partial Fill upon patient request. 5 mg PO BID PRN 60 tabs 0RF pain 30 days gentamicin 0.1% 1 appl topical QID 30 grams 3RF Discontinued tramadol Discontinued Reason: Doctor's Order 50 mg PO Q8H PRN 20 tabs 0RF Breakthrough Pain, Moderate Patient Instructions: - Follow up with senior data mining analyst for further evaluation of MGUS and possible multiple myeloma. - Complete scheduled blood work and chest x-ray as soon as possible. - Apply topical antibiotics to feet as directed and monitor for changes. - Avoid salt in diet to help manage edema. - Consider stronger pain management options for gout with your healthcare provider.
[2025-06-16 11:09] VITALS: BP 114/55; PULSE 68; RESP 16; TEMP 36.8; O2SAT 97; BMI 31.6
== END 2025-06-16 11:57 | disposition home or self-care (01) ==
LOC: HO.HMCSH 10:56
PROVIDERS: PCP Physician Assistant Medical; Visit Provider Physician Assistant Medical
DX: D47.2 Monoclonal gammopathy (principal); D64.9 Anemia, unspecified; R60.0 Localized edema; R23.8 Other skin changes; M10.39 Gout due to renal impairment, multiple sites; Z23 Encounter for immunization

== ENCOUNTER → 2025-06-16 13:10 | Outpatient (BNV) | payer MEDICARE, MEDICAID, SELFPAY | PROVIDERS: PCP Physician Assistant Medical; Visit Provider Radiology Diagnostic Radiology | DX: R53.83 Other fatigue (principal) | CPT/HCPCS: 71046 ==

== ENCOUNTER 2025-06-17 14:04 | Outpatient (AMB) | payer MEDICARE, MEDICAID, SELFPAY ==
--- NOTE | 2025-06-17 14:15 | HO.NEPHOV_ITS ---
Vital Signs 06/17/25 14:17 Height 5 ft 6.54 in Weight 200 lb 4 oz BMI 31.8 BP 120/60 Blood Pressure Location Rt brachial Position Sitting Pulse 75 Pulse Source Pulse Oximeter Pulse Oximetry (%) 97 Oxygen Delivery Method Room Air Intake Visit Reasons: 3wk f/u w/labs-Conf Tractor Driver Teamster Required: No Accompanied by: Spouse Allergies No Known Allergies Allergy (Verified 06/17/25 14:17) HPI Comments Details: Kevin Hubbard is a 69 years old man with no significant past medical history who recently presented to [facility] complaining of ongoing pain to both hands associated with swelling . He has been taking 600 - 800 mg of Advil at least twice day for the pain prior to presentation. He also had diclofenac received from an urgent care facility prior to hospital presentation. He did not report headache, palpitation, chest pain, shortness on breath, abdominal pain, nausea, vomiting, diarrhea or black/bloody stools, fever or chills or urinary symptoms. He has no history of diabetes mellitus, hypertension, remote of arthritis, hyperlipidemia, MIs, CVA or kidney problems. He does not follow routinely with the primary doctor. He does not take any daily medications other than Advil. He is a former smoker. Did not report alcohol abuse or illicit drug use. In the ER, he was found to have stable vital signs with. elevated BP . Blood workup showed no leukocytosis. Hemoglobin is 7.4 --> 7.8, hematocrit 23.9 and MCV is 87.3. Platelets were 224. Potassium is 5.4 -> 5.5. Lipase elevated, 128. Abdominal pelvis CT scan without contrast showed prostatomegaly with mass effect in the urinary bladder base, no acute obstructive uropathy or urolithiasis, possible uncomplicated epidermal inclusion cyst versus liquified hematoma . Bilateral hand x-ray showed no acute fracture or dislocation, it did showed mild/early non erosive antritis changes. ECG showed normal sinus rhythm with frequent PVCs and no ischemic changes. He was hydrated with IVF, potassium corrected with Lokelma & metabolic acidosis resolved with Bicarb. His creatinine remained stable suggesting chronic kidney disease. His anemia was thought to be due to CKD and has remained stable after 2 units of RBC rising from Hgb rising from 6 to 8, He denies uremic symptoms and making good amount of urine. 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 He had an acute attack of gout and was treated with prednisone and colchicine. He has seen nuclear medicine technologist Dr Gloria. He has been having edema extending into thighs. He had a CXR which is clear. He is going to get a bone marrow biopsy [facility] Medical History (Updated 06/17/25 @ 14:56 by Fer Munroe MD) Muscular deconditioning Localized swelling of both lower legs Skin irritation Peripheral edema MGUS (monoclonal gammopathy of unknown significance) Encounter for preventive care Gout Pre-diabetes Hypertension CKD (chronic kidney disease) Hospital discharge follow-up Establishing care with new doctor, encounter for Enlarged prostate Surgical History Hx of colonoscopy Hx of umbilical hernia repair Hx of right inguinal hernia repair Family History Father Congenital heart failure Mother Arthritis Social History Household Members: Spouse and Family Housing: House Do you presently have visiting nurse or other home services: No Alcohol intake: current Alcohol intake frequency: does not drink Patient Tobacco Use Status: Former Tobacco user Tobacco use type: Cigarette service: No Current occupational status: retired Cognitive needs: No Hearing needs: No Vision needs: Yes (rx glasses) Review of Systems Const All systems reviewed & are unremarkable except as noted in HPI and below Physical Exam Vital Signs: Last Vital Signs Pulse 75 06/17/25 14:17 BP 120/60 06/17/25 14:17 Pulse Ox 97 06/17/25 14:17 Oxygen Delivery Method Room Air 06/17/25 14:17 BMI result Body Mass Index 31.8 Const General: comfortable and no acute distress Orientation/consciousness: patient oriented x3 HEENT Head: Yes normocephalic Mouth: Normal oral and palatal mucosa present Eyes EOM: EOMs intact bilaterally Neck Neck: Yes supple Resp Auscultation: clear to auscultation bilaterally Cardio Jugular venous distension: no JVD Rate: regular rate GI Palpation (GI): Soft to palpation Auscultation: normal bowel sounds General: Yes no CVA tenderness Back/Spine/Pelvis Back: no CVA tenderness Skin General skin exam: no rashes or lesions noted Neuro General: patient oriented x3 and moves all extremities Extrem General: Yes edema Results Reviewed Nephrology Results: Hgb, (14.0-18.0) 9.0 g/dl L Δ 06/16/25 WBC, (4.8-10.8) 5.0 X10*3/uL 06/16/25 Plt Count, (160-400) 212 X10*3/uL Δ 06/16/25 Sodium, (135-145) 138 mmol/L 06/16/25 Potassium, (3.3-5.1) 4.4 mmol/L 06/16/25 Chloride, (96-108) 109 mmol/L H 06/16/25 Carbon Dioxide, (22-29) 17 mmol/L L 06/16/25 BUN, (9-16) 72 mg/dL H 06/16/25 Creatinine, (0.5-1.4) 4.95 mg/dL H* 06/16/25 Calcium, (8.4-10.2) 8.9 mg/dL 06/16/25 Urine Creatinine 101.44 mg/dL 06/16/25 Renal US 04/18/25 Assessment & Plan Assessment & Plan (1) Edema: Code(s): R60.9 - Edema, unspecified Category: Medical Qualifiers: Edema type: localized Qualified Code(s): R60.0 - Localized edema (2) Hypertension: Code(s): I10 - Essential (primary) hypertension Category: Medical Qualifiers: Hypertension type: primary hypertension Qualified Code(s): I10 - Essential (primary) hypertension (3) SACHIN (acute kidney injury): Code(s): N17.9 - Acute kidney failure, unspecified Category: Medical (4) Metabolic acidosis: Code(s): E87.20 - Acidosis, unspecified Category: Medical Plan Appears to have an acute on chronic kidney disease, but baseline is unknown. Has proteinuria with low C3/C4 as well as low immunoglobulins . Had a renal biopsy which showed ATN and cast nephropathy. He is due to have bone marrow biopsy and has seen nuclear medicine technologist. He may need PLEX. No indication for renal replacement today. Will need EPO soon. C/W Allopurinol 100 mg daily and NaHCO3 daily. D/Gregory Amlodipine and started on Lasix 40 mg bid. Answered all questions. F/U given Medications: New furosemide (Lasix) 40 mg PO BID 60 tabs 0RF 30 days Coding Level of Care Code Est Pt Level 4 (95413) Diagnoses Localized edema R60.0 Edema type: localized Primary hypertension I10 Hypertension type: primary hypertension SACHIN (acute kidney injury) N17.9 Metabolic acidosis E87.20
[2025-06-17 14:17] VITALS: BP 120/60; PULSE 75; O2SAT 97; BMI 31.8
== END 2025-06-17 14:34 | disposition home or self-care (01) ==
LOC: HO.HKA 14:04
PROVIDERS: PCP Physician Assistant Medical; Visit Provider Internal Medicine Nephrology
DX: R60.0 Localized edema (principal); I10 Essential (primary) hypertension; N17.9 Acute kidney failure, unspecified; E87.20 Acidosis, unspecified
CPT/HCPCS: 99214

== ENCOUNTER → 2025-06-17 14:04 | Outpatient (BNVA) | payer MEDICARE, MEDICAID, SELFPAY | PROVIDERS: PCP Physician Assistant Medical; Visit Provider Internal Medicine Nephrology | DX: I10 Essential (primary) hypertension (principal); R60.0 Localized edema; N17.9 Acute kidney failure, unspecified; E87.20 Acidosis, unspecified; N18.9 Chronic kidney disease, unspecified | CPT/HCPCS: 99212 ==

== ENCOUNTER 2025-06-22 13:55 | Outpatient (AMB) | payer MEDICARE, MEDICAID, SELFPAY ==
--- NOTE | 2025-06-22 14:11 | HO.NEPHOV ---
Vital Signs 06/22/25 14:12 Height 5 ft 6.54 in Weight 191 lb 6 oz BMI 30.4 BP 110/60 Blood Pressure Location Lt brachial Position Sitting Pulse 70 Pulse Source Pulse Oximeter Pulse Oximetry (%) 95 Oxygen Delivery Method Room Air Intake Visit Reasons: 1wk f/u No labs-Conf Rat Trapper Required: No Accompanied by: Spouse Allergies No Known Allergies Allergy (Verified 06/22/25 14:12) HPI Comments Details: Kevin Hubbard is a 69 years old man with no significant past medical history who recently presented to [facility] complaining of ongoing pain to both hands associated with swelling . He has been taking 600 - 800 mg of Advil at least twice day for the pain prior to presentation. He also had diclofenac received from an urgent care facility prior to hospital presentation. He did not report headache, palpitation, chest pain, shortness on breath, abdominal pain, nausea, vomiting, diarrhea or black/bloody stools, fever or chills or urinary symptoms. He has no history of diabetes mellitus, hypertension, remote of arthritis, hyperlipidemia, MIs, CVA or kidney problems. He does not follow routinely with the primary doctor. He does not take any daily medications other than Advil. He is a former smoker. Did not report alcohol abuse or illicit drug use. In the ER, he was found to have stable vital signs with. elevated BP . Blood workup showed no leukocytosis. Hemoglobin is 7.4 --> 7.8, hematocrit 23.9 and MCV is 87.3. Platelets were 224. Potassium is 5.4 -> 5.5. Lipase elevated, 128. Abdominal pelvis CT scan without contrast showed prostatomegaly with mass effect in the urinary bladder base, no acute obstructive uropathy or urolithiasis, possible uncomplicated epidermal inclusion cyst versus liquified hematoma . Bilateral hand x-ray showed no acute fracture or dislocation, it did showed mild/early non erosive antritis changes. ECG showed normal sinus rhythm with frequent PVCs and no ischemic changes. He was hydrated with IVF, potassium corrected with Lokelma & metabolic acidosis resolved with Bicarb. His creatinine remained stable suggesting chronic kidney disease. His anemia was thought to be due to CKD and has remained stable after 2 units of RBC rising from Hgb rising from 6 to 8, He denies uremic symptoms and making good amount of urine. 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 He had an acute attack of gout and was treated with prednisone and colchicine. He has seen plant packer Dr Gloria. He has been having edema extending into thighs. He had a CXR which is clear. He is going to get a bone marrow biopsy [facility] Medical History (Updated 06/19/25 @ 12:56 by Omero Gloria MD) Muscular deconditioning Localized swelling of both lower legs Skin irritation Peripheral edema MGUS (monoclonal gammopathy of unknown significance) Encounter for preventive care Gout Pre-diabetes Hypertension CKD (chronic kidney disease) Hospital discharge follow-up Establishing care with new doctor, encounter for Enlarged prostate Surgical History Hx of colonoscopy Hx of umbilical hernia repair Hx of right inguinal hernia repair Family History Father Congenital heart failure Mother Arthritis Social History Household Members: Spouse and Family Housing: House Do you presently have visiting nurse or other home services: No Alcohol intake: current Alcohol intake frequency: does not drink Patient Tobacco Use Status: Former Tobacco user Tobacco use type: Cigarette service: No Current occupational status: retired Cognitive needs: No Hearing needs: No Vision needs: Yes (rx glasses) Review of Systems Const All systems reviewed & are unremarkable except as noted in HPI and below Physical Exam Vital Signs: Last Vital Signs Pulse 70 06/22/25 14:12 BP 110/60 06/22/25 14:12 Pulse Ox 95 06/22/25 14:12 Oxygen Delivery Method Room Air 06/22/25 14:12 BMI result Body Mass Index 30.4 Const General: comfortable and no acute distress Orientation/consciousness: patient oriented x3 HEENT Head: Yes normocephalic Mouth: Normal oral and palatal mucosa present Eyes EOM: EOMs intact bilaterally Neck Neck: Yes supple Resp Auscultation: clear to auscultation bilaterally Cardio Jugular venous distension: no JVD Rate: regular rate GI Palpation (GI): Soft to palpation Auscultation: normal bowel sounds General: Yes no CVA tenderness Back/Spine/Pelvis Back: no CVA tenderness Skin General skin exam: no rashes or lesions noted Neuro General: patient oriented x3 and moves all extremities Results Reviewed Nephrology Results: Hgb, (14.0-18.0) 9.0 g/dl L Δ 06/16/25 WBC, (4.8-10.8) 5.0 X10*3/uL 06/16/25 Plt Count, (160-400) 212 X10*3/uL Δ 06/16/25 Sodium, (135-145) 138 mmol/L 06/16/25 Potassium, (3.3-5.1) 4.4 mmol/L 06/16/25 Chloride, (96-108) 109 mmol/L H 06/16/25 Carbon Dioxide, (22-29) 17 mmol/L L 06/16/25 BUN, (9-16) 72 mg/dL H 06/16/25 Creatinine, (0.5-1.4) 4.95 mg/dL H* 06/16/25 Calcium, (8.4-10.2) 8.9 mg/dL 06/16/25 Urine Creatinine 101.44 mg/dL 06/16/25 Renal US 04/18/25 Assessment & Plan Assessment & Plan (1) Hypertension: Code(s): I10 - Essential (primary) hypertension Category: Medical Qualifiers: Hypertension type: primary hypertension Qualified Code(s): I10 - Essential (primary) hypertension (2) SACHIN (acute kidney injury): Code(s): N17.9 - Acute kidney failure, unspecified Category: Medical (3) Metabolic acidosis: Code(s): E87.20 - Acidosis, unspecified Category: Medical (4) Proteinuria: Code(s): R80.9 - Proteinuria, unspecified Category: Medical Qualifiers: Proteinuria type: other Qualified Code(s): R80.8 - Other proteinuria Plan Appears to have an acute on chronic kidney disease, but baseline is unknown. Has proteinuria with low C3/C4 as well as low immunoglobulins . Had a renal biopsy which showed ATN and cast nephropathy. He is due to have bone marrow biopsy and has seen plant packer. He may need PLEX. No indication for renal replacement today. Will need EPO soon. C/W Allopurinol 100 mg daily and NaHCO3 daily. Increased his lasix to 80 mg bid. Reduced labetalol to 100 mg bid. Answered all questions. F/U given Orders: Orders Blood Urea Nitrogen 2 Weeks I10 - Essential (primary) hypertension, N17.9 - Acute kidney failure, unspecified Electrolytes 2 Weeks I10 - Essential (primary) hypertension, N17.9 - Acute kidney failure, unspecified Calcium 2 Weeks I10 - Essential (primary) hypertension, N17.9 - Acute kidney failure, unspecified Creatinine 2 Weeks I10 - Essential (primary) hypertension, N17.9 - Acute kidney failure, unspecified Coding Level of Care Code Est Pt Level 4 (43800) Diagnoses Primary hypertension I10 Hypertension type: primary hypertension SACHIN (acute kidney injury) N17.9 Metabolic acidosis E87.20 Other proteinuria R80.8 Proteinuria type: other
[2025-06-22 14:12] VITALS: BP 110/60; PULSE 70; O2SAT 95; BMI 30.4
== END 2025-06-22 14:43 | disposition home or self-care (01) ==
LOC: HO.HKA 13:56
PROVIDERS: PCP Physician Assistant Medical; Visit Provider Internal Medicine Nephrology
DX: I10 Essential (primary) hypertension (principal); N17.9 Acute kidney failure, unspecified; E87.20 Acidosis, unspecified; R80.8 Other proteinuria
CPT/HCPCS: 99214

== ENCOUNTER → 2025-06-22 13:55 | Outpatient (BNVA) | payer MEDICARE, MEDICAID, SELFPAY | PROVIDERS: PCP Physician Assistant Medical; Visit Provider Internal Medicine Nephrology | DX: I10 Essential (primary) hypertension (principal); N17.9 Acute kidney failure, unspecified; E87.20 Acidosis, unspecified; R80.8 Other proteinuria | CPT/HCPCS: 99212 ==

== ENCOUNTER 2025-07-04 09:06 | Day surgery (SDC) | payer MEDICARE, MEDICAID, SELFPAY ==
[2025-07-04] VITALS (16 sets, daily range): BP systolic 93–142; BP diastolic 44–76; PULSE 67–84; RESP 14–22; TEMP 36.1–36.5; O2SAT 94–98; BMI 28.3
--- NOTE | ~2025-07-04 | CT_ITS ---
Examination: CT-guided bone marrow biopsy. CLINICAL INDICATION: Multiple myeloma. COMPARISON: CT-guided kidney biopsy 04/27/2025. FINDINGS: Following explaining CT fluoroscopy guided bone marrow biopsy procedure, benefits and risk, a written consent was obtained. Patient was placed prone on fluoroscopy table and preliminary CT imaging was obtained. An optimal slice was selected and markers placed along the posterior left buttock. Repeat CT imaging was performed. An optimal marker was selected and marked on the skin. The area was cleaned and draped in usual sterile manner with 2% chlorhexidine solution. 1% lidocaine was injected puncture site. Through a small skin incision a 18-gauge guide needle was advanced from the skin to the level of cortex and through the cortex with a drill attached to the needle penetrating the cortex. CT fluoroscopy imaging was obtained during exam. The stylet was withdrawn and saline attached to the guide needle. Approximately 15 mL of blood was aspirated in a syringe. The bladder was transferred to 5 test tubes as signed by the pathology department. Subsequently there was attached to the guide needle and a core biopsy was obtained of the bone marrow. Post biopsy the guide needle was withdrawn and complete hemostasis achieved at puncture site. Repeat CT check was performed for bleeding. Simple dressing was applied post procedure. Conscious sedation was utilized during exam and patient monitored by our nurse and IR physician. FINDINGS: On preliminary CT imaging there is mild hypodensity in right pectineus muscle question edema or focal fluid collection. It is best visualized on axial slice 50/4. There is mild loss of left hip joint space with periarticular spurring. Minimal loss of right hip joint space is seen. No acute fracture or lytic process seen. No abnormal pelvic lymphadenopathy. There is no free fluid. There is colonic diverticulosis. CT fluoroscopy guided left posterior iliac crest bone marrow biopsy performed with conscious sedation. There are no immediate complications. Postprocedure CT revealed no bleeding. CT/CT biopsy asp core bone marrow IMPRESSION: Successful CT fluoroscopy guided left posterior iliac crest bone marrow biopsy and aspiration performed. On preliminary CT imaging there is mild hypodensity of right pectineus muscle question edema. Electronically signed by: Jon Jenkins MD 07/04/2025 03:28 PM EDT
[2025-07-04 09:44] LABS: INTERNATIONAL NORM RATIO 1.0 (0.9-1.1); Prothrombin Time 11.3 SEC (10.9-12.4)
--- NOTE | 2025-07-04 10:06 | PC.NURSE ---
bilateral hand and pedal edema. redness noted to lower bilateral legs. c/o right hand finger numbness.
== END 2025-07-04 13:00 | disposition home or self-care (01) ==
PROVIDERS: Radiology Diagnostic Radiology; PCP Physician Assistant Medical; Visit Provider Internal Medicine Medical Oncology
DX: C90.00 Multiple myeloma not having achieved remission (principal); D47.2 Monoclonal gammopathy; R60.9 Edema, unspecified; N40.1 Benign prostatic hyperplasia with lower urinary tract symptoms; R35.0 Frequency of micturition; I12.9 Hypertensive chronic kidney disease with stage 1 through stage 4 chronic kidney disease, or unspecified chronic kidney disease; N18.9 Chronic kidney disease, unspecified; R73.03 Prediabetes; M10.9 Gout, unspecified; Z79.1 Long term (current) use of non-steroidal anti-inflammatories (NSAID); Z87.891 Personal history of nicotine dependence
CPT/HCPCS: 36415; 38222; 77012; 85610; 88184; 88185; 88237; 88264; 88305; 88311; 88313; 88342; 88344; 88374; 99153; J2003; J2250; J3010

== ENCOUNTER → 2025-07-04 10:23 | Outpatient (BNV) | payer MEDICARE, MEDICAID, SELFPAY | PROVIDERS: PCP Physician Assistant Medical; Visit Provider Radiology Diagnostic Radiology | DX: C90.00 Multiple myeloma not having achieved remission (principal) | CPT/HCPCS: 38222; 77012; 99152 ==

== ENCOUNTER 2025-07-06 10:56 | Outpatient (REF) | payer MEDICARE, MEDICAID, SELFPAY ==
--- NOTE | 2025-07-06 11:01 | EMG_ITS ---
Chief complaint: Presenting with generalized weakness, swelling of right hand, bilateral pedal edema. In April, presented to ED with bilateral hand pain and swelling, right worse than left. Workup at ED showed creatinine of 7, metabolic acidosis and hemoglobin of 6, requiring transfusions. He was also hypertensive. He is still being evaluated for MGUS versus multiple myeloma by Dr. Gloria. He is followed by Nephrology for CKD. Reason for referral: Evaluate for Carpal Tunnel Syndrome Referred by: Adis HUANG Procedure done: Bilateral upper extremities NCS/EMG Precautions and/or limitations: None The limb temperature was monitored continuously and remained between 32-36 degrees C during the performance of the NCS. Ulnar motor NCS was performed with moderate elbow flexion between 70-90 degrees, with across-elbow distance of 10 cm. Nerve Conduction Studies Anti Sensory Summary Table ?Stim Site NR Onset (ms) Norm Onset (ms) Peak (ms) Norm Peak (ms) O-P Amp (?V) Norm O-P Amp Site1 Site2 Delta-0 (ms) Dist (cm) Lazaro (m/s) Norm Lazaro (m/s) Left Median Anti Sensory (2nd Digit) Wrist NR <3.6 >10 Wrist 2nd Digit 14.0 Right Median Anti Sensory (2nd Digit) Wrist NR <3.6 >10 Wrist 2nd Digit 14.0 Left Radial Anti Sensory (Thumb) Forearm ? 2.0 2.6 <3.1 17.2 Forearm Thumb 2.0 0.0 Left Ulnar Anti Sensory (5th Digit) Wrist ? 1.9 2.6 <3.7 8.1 >15.0 Wrist 5th Digit 1.9 14.0 74 Right Ulnar Anti Sensory (5th Digit) Wrist ? 2.9 3.9 <3.7 7.1 >15.0 Wrist 5th Digit 2.9 14.0 48 Motor Summary Table ?Stim Site NR Onset (ms) Norm Onset (ms) O-P Amp (mV) Norm O-P Amp iAmp (mV) Amp (1st) (%) Site1 Site2 Delta-0 (ms) Dist (cm) Lazaro (m/s) Norm Lazaro (m/s) Left Median Motor (Abd Poll Brev) Wrist NR <3.9 >4.5 Elbow Wrist 0.0 >45 Elbow NR Right Median Motor (Abd Poll Brev) Wrist ? 7.3 <3.9 0.1 >4.5 0.2 100.0 Elbow Wrist 4.9 23.0 47 >45 Elbow ? 12.2 0.1 0.2 100.0 Left Ulnar Motor (Abd Dig Minimi) Wrist ? 3.1 <3.0 6.5 >5 7.4 100.0 B Elbow Wrist 3.9 21.0 54 >45 B Elbow ? 7.0 5.5 6.3 84.6 A Elbow B Elbow 2.3 10.0 43 >45 A Elbow ? 9.3 5.5 6.2 84.6 Right Ulnar Motor (Abd Dig Minimi) Wrist ? 3.0 <3.0 5.8 >5 6.9 100.0 B Elbow Wrist 4.0 20.5 51 >45 B Elbow ? 7.0 5.3 6.4 91.4 A Elbow B Elbow 1.8 10.0 56 >45 A Elbow ? 8.8 5.0 6.1 86.2 EMG ?Side Muscle Nerve Root Ins Act Fibs Psw Amp Dur Poly Recrt Int Pat Comment Right 1stDorInt Ulnar C8-T1 Nml Nml Nml Nml Nml 0 Nml Complete Right FlexCarpiUln Ulnar C8,T1 Nml Nml Nml Nml Nml 0 Nml Complete Right Biceps Musculocut C5-6 Nml Nml Nml Nml Nml 0 Nml Complete Right Triceps Radial C6-7-8 Nml Nml Nml Nml Nml 0 Nml Complete Right Deltoid Axillary C5-6 Nml Nml Nml Nml Nml 0 Nml Complete Left 1stDorInt Ulnar C8-T1 Nml Nml Nml Nml Nml 0 Nml Complete Left FlexCarpiUln Ulnar C8,T1 Nml Nml Nml Nml Nml 0 Nml Complete Left Biceps Musculocut C5-6 Nml Nml Nml Nml Nml 0 Nml Complete Left Triceps Radial C6-7-8 Nml Nml Nml Nml Nml 0 Nml Complete Left Deltoid Axillary C5-6 Nml Nml Nml Nml Nml 0 Nml Complete Paraspinal EMG ?Side Muscle Nerve Root Ins Act Fibs Psw Comment Right Cervical Upper Rami Nml Nml Nml Right Cervical Mid Rami Nml Nml Nml Right Cervical Lower Rami Nml Nml Nml Left Cervical Upper Rami Nml Nml Nml Left Cervical Mid Rami Nml Nml Nml Left Cervical Lower Rami Nml Nml Nml FINDINGS: Left median motor nerve showed absent response. Left ulnar motor nerve showed prolonged distal latency, normal amplitude and slow conduction velocity across the elbow. Right median motor nerve showed very small, almost absent amplitudes. Left median sensory nerve showed normal peak latency but small amplitude. Right median sensory nerve showed absent response. Left ulnar sensory nerve showed normal peak latencies but small amplitude. Right ulnar sensory nerve showed prolonged peak latency and small amplitude. All other nerves tested were within normal. Concentric needle EMG was performed in selected muscles of the bilateral upper extremities and cervical paraspinals. Study did not reveal signs of electric abnormalities as shown in the table above. IMPRESSION: 1. This is an abnormal study. 2. There is electrodiagnostic evidence for bilateral severe median neuropathy at the wrist, consistent with carpal tunnel syndrome. 3. There is electrodiagnostic evidence for left ulnar neuropathy at the elbow. Possibly also right ulnar neuropathy but not as localizable. 4. There is no electrodiagnostic evidence for cervical radiculopathy. CLINICAL COMMENT: Study today showed localized entrapment neuropathies, however patient continues workup for a more systemic disease. Consider repeat EMG in 6 months. Thank you for your kind referral. Corina Jeffrey MD, ANDRES Board Certified, [place] [employer] and [employer] (ABPMR) Board Certified, [place] [employer] Electro[employer] (ABEM) CODIN [phone] [id number] x 2 MTDD
== END 2025-07-06 10:57 | disposition home or self-care (01) ==
LOC: HO.NEURO 10:56
DX: R20.0 Anesthesia of skin (principal); R20.2 Paresthesia of skin
CPT/HCPCS: 95886; 95911

== ENCOUNTER → 2025-07-06 11:01 | Outpatient (BNV) | payer MEDICARE, MEDICAID, SELFPAY | PROVIDERS: Visit Provider Physical Medicine & Rehabilitation | DX: G56.03 Carpal tunnel syndrome, bilateral upper limbs (principal); G56.22 Lesion of ulnar nerve, left upper limb | CPT/HCPCS: 95886; 95911 ==

== ENCOUNTER 2025-07-06 11:34 | Inpatient (IN) | payer MEDICARE, MEDICAID, SELFPAY ==
--- NOTE | ~2025-07-06 | XR_ITS ---
CLINICAL HISTORY: LE edema 2 view chest x-ray Comparison: CR/SR - XR CHEST 2 VIEWS - 06/16/25 13:19 EDT Findings: The lungs are clear. Heart size is normal. No acute fracture. IMPRESSION: 1. No acute findings. This document has been electronically signed by: Shiv Cheung MD on 07/06/2025 17:40:38
--- NOTE | ~2025-07-06 | XR_ITS ---
EXAMINATION: XR BONE SURVEY, COMPLETE CLINICAL INFORMATION: Multiple myeloma, initial staging. COMPARISON: None available. TECHNIQUE: Lateral skull, lateral C-spine, frontal and lateral T spine, frontal and lateral L spine, AP pelvis, AP chest x-ray, AP bilateral humerus, AP bilateral forearms, AP bilateral femurs, AP bilateral tibia and fibula x-rays were performed FINDINGS: Skull: No lytic lesions are seen. There is calcification probably in the region of the pineal gland. There is a nuchal ligament enthesophyte. Cervical spine: There is reversal cervical lordosis with moderate degenerative change at C5-6 and C6-7. There is nuchal ligament ossification dorsal to C4-5 spinous process. There is also ossification inferior to the spinous process tip at C7. No lytic or blastic lesions. Chest x-ray: Lungs are clear and well aerated. Heart size is within normal limits. There is a tunneled central catheter placed in the internal jugular vein and terminating in the superior cavoatrial junction. No lytic or blastic lesions are identified. Right left humerus: There is osteopenia with a mottled appearance of the scapula and both humeri. The left is more affected than the right. Underlying small lytic lesions would be difficult to definitively rule in or out. Right and left forearms: There is vague lucency in the cortex of the right radius, just distal to the radial tuberosity that does not have the typical punched-out appearance of multiple myeloma. Pelvis: There is severe end-stage degenerative changes in the right hip joint with subchondral collapse, degenerative cystic change, large marginal osteophytes, and obliteration of the superior lateral hip joint space. The right iliac aorta is obscured by stool in the cecum. No definite lytic lesions are identified. Right femur: Aside from aforementioned degenerative changes in the right hip, no lytic or blastic lesions are identified. Left humerus: No lytic or blastic lesions are identified. Bilateral tibia and fibula: Intercondylar tubercles are peaked bilaterally and there is a marginal osteophyte involving the notch side of the lateral femoral condyle bilaterally. There is mild degenerative irregularity of the proximal left tibia fibula joint. XR/XR bone survey IMPRESSION: There is a mottled appearance of left greater than right proximal humeri and scapulas. This may be due to osteopenia, but underlying lytic lesions cannot definitively be ruled in or out. There is a focal area of osteopenia involving the cortex of the proximal right radius, just distal to the radial tuberosity, that is probably related to a vascular channel rather than a lytic lesion. Electronically signed by: Tono Henry MD 07/08/2025 11:14 AM EDT
--- NOTE | ~2025-07-06 | IR_ITS ---
PROCEDURE: IR INSERTION OF TUNNEL CATHETER CLINICAL INFORMATION: Acute on chronic renal failure. Needs renal dialysis and plasmapheresis COMPARISON: TECHNIQUE: Following explaining ultrasound and fluoroscopy-guided placement of the right permacatheter procedure, benefits and risk, a written consent was obtained. Patient was placed supine on fluoroscopy table and angiography table and preliminary ultrasound imaging of the right neck were performed and images obtained for documentation. The right neck and the right anterior chest wall was prepped and draped in usual sterile manner with 2% chlorhexidine solution. 1% lidocaine was injected at the right neck. Under sterile ultrasound guidance a singlewall needle was advanced from right anterolateral neck and jugular vein was punctured. After observing venous return a thin guidewire was advanced into the SVC under fluoroscopy and needle withdrawn. A 5 Russian dilator with sheath was placed over the guidewire and the entire unit was attached to the drape. Approximately 1 gauze length from the right anterior neck incision 1% lidocaine was administered along the right anterior chest wall and a small skin incision was performed. 1% lidocaine was subcutaneously was administered from the right anterior chest wall to the right neck incision. A tunneler attached to the permacatheter was then tunneled from the anterior chest wall incision site to the right neck incision site and the entire unit including the permacatheter was pulled out. At the right neck incision the 5 Russian dilator and the wire was removed and a 0.035 J-wire was advanced IVC under fluoroscopy guidance. The 5 Russian dilator was exchanged for a 10 Russian and a 12 Russian dilator and the tract was dilated. A 14 Russian dilator with peel-away sheath sheath was placed over the guidewire and the guidewire and the dilator was removed. The permacatheter was then inserted through the peel-away sheath and placed in SVC. As the permacatheter was held in position the peel-away sheath was removed. A single image was obtained over the right anterior chest wall for documentation. The permacatheter was anchored to the skin with 3 0 nonabsorbable sutures. Absorbable sutures were placed around the right anterior neck and the right chest wall incision entry site to minimize bleeding. A Yeguada schwartz was placed at the right neck incision. Sterile dressing applied post procedure. Patient tolerated procedure extremely well. All elements of maximal sterile barrier technique followed including use of cap, mask, sterile gown, sterile gloves, a sterile full body drape and hand hygiene. Also followed skin preparation with 2% chlorhexidine for cutaneous antisepsis, and sterile ultrasound preparation with sterile gel and probe cover when applicable. Conscious sedation was administered during exam and patient monitored by IR nurse and IR physician during exam. FINDINGS: On preliminary ultrasound imaging there is a widely patent right jugular vein. An 14.5 Russian 23 cm along the dual-lumen tunneled permacatheter was placed with its tip in mid SVC ready for use. Patient tolerated procedure extremely well. IR/IR us guide venous access IMPRESSION: Successful placement of right permacatheter under fluoroscopy and ultrasound guidance. There are no immediate complications. Fluoroscopy time: 1.4 minutes. Dose: 19.3 mCi. Sedation time: 30 minutes. Electronically signed by: Jon Jenkins MD 07/07/2025 03:13 PM EDT
--- NOTE | ~2025-07-06 | IR_ITS ---
PROCEDURE: IR INSERTION OF TUNNEL CATHETER CLINICAL INFORMATION: Acute on chronic renal failure. Needs renal dialysis and plasmapheresis COMPARISON: TECHNIQUE: Following explaining ultrasound and fluoroscopy-guided placement of the right permacatheter procedure, benefits and risk, a written consent was obtained. Patient was placed supine on fluoroscopy table and angiography table and preliminary ultrasound imaging of the right neck were performed and images obtained for documentation. The right neck and the right anterior chest wall was prepped and draped in usual sterile manner with 2% chlorhexidine solution. 1% lidocaine was injected at the right neck. Under sterile ultrasound guidance a singlewall needle was advanced from right anterolateral neck and jugular vein was punctured. After observing venous return a thin guidewire was advanced into the SVC under fluoroscopy and needle withdrawn. A 5 [facility] Lucian dilator with sheath was placed over the guidewire and the entire unit was attached to the drape. Approximately 1 gauze length from the right anterior neck incision 1% lidocaine was administered along the right anterior chest wall and a small skin incision was performed. 1% lidocaine was subcutaneously was administered from the right anterior chest wall to the right neck incision. A tunneler attached to the permacatheter was then tunneled from the anterior chest wall incision site to the right neck incision site and the entire unit including the permacatheter was pulled out. At the right neck incision the 5 [facility] Lucian dilator and the wire was removed and a 0.035 J-wire was advanced IVC under fluoroscopy guidance. The 5 [facility] Lucian dilator was exchanged for a 10 [address] [facility]ian and a 12 [address] Lucian dilator and the tract was dilated. A 14 [facility] Lucian dilator with peel-away sheath sheath was placed over the guidewire and the guidewire and the dilator was removed. The permacatheter was then inserted through the peel-away sheath and placed in SVC. As the permacatheter was held in position the peel-away sheath was removed. A single image was obtained over the right anterior chest wall for documentation. The permacatheter was anchored to the skin with 3 0 nonabsorbable sutures. Absorbable sutures were placed around the right anterior neck and the right chest wall incision entry site to minimize bleeding. A Cromberg schwartz was placed at the right neck incision. Sterile dressing applied post procedure. Patient tolerated procedure extremely well. All elements of maximal sterile barrier technique followed including use of cap, mask, sterile gown, sterile gloves, a sterile full body drape and hand hygiene. Also followed skin preparation with 2% chlorhexidine for cutaneous antisepsis, and sterile ultrasound preparation with sterile gel and probe cover when applicable. Conscious sedation was administered during exam and patient monitored by IR nurse and IR physician during exam. FINDINGS: On preliminary ultrasound imaging there is a widely patent right jugular vein. An 14.5 [facility] Lucian 23 cm along the dual-lumen tunneled permacatheter was placed with its tip in mid SVC ready for use. Patient tolerated procedure extremely well. IR/IR cvc insert central tunnel IMPRESSION: Successful placement of right permacatheter under fluoroscopy and ultrasound guidance. There are no immediate complications. Fluoroscopy time: 1.4 minutes. Dose: 19.3 mCi. Sedation time: 30 minutes. Electronically signed by: Jon Jenkins MD 07/07/2025 03:13 PM EDT
[2025-07-06 11:57] VITALS: BP 127/58; PULSE 73; RESP 18; TEMP 36.3; O2SAT 97; BMI 17.4
--- NOTE | 2025-07-06 11:57 | ED_ITS ---
HPI - General Adult General Chief complaint: General Medical Stated complaint: kidney failure? Dr. chirinos wants to admit Time Seen by Provider: 07/06/25 15:51 Source: patient Mode of arrival: ambulatory Limitations: no limitations History of Present Illness ED Provider: SHANIQUE LAM PA-C HPI narrative: 69 year old male with pmhx significant for recent diagnosis of CKD, MGUS, HTN, gout, anemia presents to the ED today with concerns of acute kidney failure. Patient follows with supervisor model making, Dr. Chirinos. Patient's kidney function has been increasing and nephrology advised that he come here for emergent dialysis. Patient reports swelling to his lower extremities. Additionally endorses pain to bilateral hands x months. Denies chest pain, palpitations, shortness of breath. Related Data Home Medications ?Medication ?Instructions ?Recorded ?Confirmed amlodipine 10 mg tablet 10 mg PO DAILY 07/06/25 furosemide 40 mg tablet 40 mg PO BID 07/06/25 sodium bicarbonate 650 mg tablet 650 mg PO DAILY 07/06 Previous Rx's ?Medication ?Instructions ?Recorded labetalol 100 mg tablet 100 mg PO BID #180 tabs 04/05 04/29 allopurinol 100 mg tablet 100 mg PO DAILY #90 tabs gentamicin 0.1 % topical ointment 1 appl topical QID # 30 grams 06/16/25 oxycodone 5 mg tablet 5 mg PO BID PRN pain 30 days #60 06/16/25 tabs gabapentin 100 mg capsule 100 mg PO DAILY pain #30 cap s 06/20/25 Allergies Allergy/AdvReac Type Severity Reaction Status Date / Time No Known Allergies Allergy Verified 07/06/25 12:00 Review of Systems 2 Review of Systems: Yes all other systems are reviewed and are negative [facility] Past Medical History Attestation statement: The following information was validated with the patient. Source: old records reviewed and nursing notes reviewed Medical History Spinal stenosis Bilateral cataracts Muscular deconditioning Localized swelling of both lower legs Skin irritation Peripheral edema MGUS (monoclonal gammopathy of unknown significance) Encounter for preventive care Gout Pre-diabetes Hypertension CKD (chronic kidney disease) Hospital discharge follow-up Establishing care with new doctor, encounter for Enlarged prostate Surgical History Hx of colonoscopy Hx of umbilical hernia repair Hx of right inguinal hernia repair Family History Family History Father Congenital heart failure Mother Arthritis Social History Social History Household Members: Spouse and Family Housing: House Do you presently have visiting nurse or other home services: No Alcohol intake: current Alcohol intake frequency: does not drink Patient Tobacco Use Status: Former Tobacco user Tobacco use type: Cigarette service: No Current occupational status: retired Cognitive needs: No Hearing needs: No Vision needs: Yes (rx glasses) Physical Exam ED Vital Signs: Vital Signs - 24 hr 07/06/25 11:57 Temperature 97.3 F Pulse Rate 73 Respiratory Rate 18 Blood Pressure 127/58 L Pulse Oximetry 97 Oxygen Delivery Method Room Air BMI result Body Mass Index 17.4 vital signs stable General: ill appearing. Skin: Warm, dry, intact. No rashes or lesions. Head: Normocephalic, atraumatic. EENT: Hearing is intact b/l. Conjunctiva clear. PERRLA. EOM intact Neck: Supple without LAD Cardiac: Chest wall symmetric. RRR Lungs: Normal respiratory effort without accessory muscle use. CTA bilaterally. No rales, rhonchi, or wheezes.? Abdomen: Soft, non-tender, non-distended. No rebound tenderness or guarding. Positive BS x4. Back: No midline spinous or paraspinal tenderness. No step off deformity. Ext: 2-3+ pitting edema. Neuro: AOx3. Normal speech. Ambulating with steady gait. Course Course Course Narrative: This is an RME: Additional HPI, ROS, PE not included below will be deferred to primary provider. RME assessment and note performed by: Alta Flowers PA-C This is a 30-llmb-xqg-male, with a hx recent diagnosis of CKD, MGUS, HTN, who presents to the ER accompanied by his , with concerns of abnormal lab results. Patient with 2-3+ pitting edema. Dr. Chirinos told patient to come to the emergency room to be admitted for further management of his renal failure. Plan: Labs, further ER eval needed Reevaluation(s) Reevaluation #1: 1550 -- on review of labs, there is no leukocytosis. There is normocytic anemia, down trending when compared to priors however above transfusion threshold. Chemistry shows hypokalemia to 3.1 and hypomagnesemia to 2.9. Elevated phosphorus at 6.3. Acute kidney failure with BUN of 112 and creatinine of 6.1. Liver function at baseline. NT pro BNP elevated to 927. cxr without effusion or vascular congestion Triage provider spoke with supervisor model making MISTY Collins - requesting permacath be placed today with plan for dialysis tomorrow. patient will require admission. Further recommendations from nephrology on admission: > echocardiogram > MRI spine d/t concern for multiple myeloma > patient may require ?plasmaphoresis 1600 -- Called and spoke w/ Dhruv from IR - plan to take patient to OR for permacath placement in 15 mins. RN aware, at bedside to place IV. 1620 -- Received call back from IR who spoke w/ Dr. Chirinos. The plan is to now have permcath placed first thing tomorrow morning. Requesting patient be NPO til then. Requesting PT/INR be drawn at 0500 this morning. Will reach out to hospitalist for admission. Medications Administered Discontinued Medications Generic Name Dose Route Start Last Admin Trade Name Freq PRN Reason Stop Dose Admin Acetaminophen 1,000 mg in 100 mls @ 400 mls/hr 07/06/25 16:36 07/06/25 17:37 Ofirmev IV 07/06/25 16:50 Infused ONCE ONE Infusion Potassium Chloride 40 meq 07/06/25 16:52 07/06/25 17:28 Potassium Chloride Er 20 Meq Tab.Er.Prt PO 07/06/25 16:53 40 meq ONCE ONE Administration Medical Decision Making Medical Decision Making [facility] Narrative: 69 year old male with pmhx significant for recent diagnosis of CKD, MGUS, HTN, gout, anemia presents to the ED today with concerns of acute kidney failure. vital signs are stable. he is ill appearing but in NAD. on exam, lungs are clear. there is 2-3+ pitting edema to b/l LEs. Differential diagnosis includes anemia, electrolyte abnormality, CHF, SACHIN, renal failure Differential Diagnosis Differential Diagnoses: The differential diagnosis associated with the presentation includes As above Admission/Observation Consideration of admission/observation: Escalation of care including admission/observation considered Patient admitted to medicine for SACHIN requiring emergent hemodialysis Consult Healthcare Provider Management of the patient was discussed with: Hospitalist (george fajardo) and Access Service Representative (dr. mary oviedo) Lab Data MDM Lab Attestation statement: I reviewed the patient's lab results. as above. 07/06/25 12:44 07/06/25 12:44 Labs: Lab Results 07/06/25 Range/Units 12:44 WBC 9.3 (4.8-10.8) X10*3/uL RBC 2.72 L (4.60-5.80) X10*6/uL Hgb 8.4 L (14.0-18.0) g/dl Hct 24.1 L (42.0-52.0) % MCV 88.6 (80.0-98.0) fL MCH 30.9 (27.0-33.0) pg MCHC 34.9 (31.0-36.0) g/dl RDW 14.1 (11.0-16.0) % Plt Count 191 (160-400) X10*3/uL MPV 8.7 L (9.4-12.4) fL Immature Gran % (Auto) 1.1 H (0.0-0.4) % Neut % (Auto) 78.8 H (45-73) % Lymph % (Auto) 6.0 L (20-40) % [place] % (Auto) 10.7 (2-11) % Eos % (Auto) 2.8 (0-4) % Baso % (Auto) 0.6 (0-2) % Lymph # (Auto) 0.6 L (1.2-4.9) X10*3/uL [place] # (Auto) 1.0 (0.1-1.2) X10*3/uL Eos # (Auto) 0.3 (0.0-0.4) X10*3/uL Baso # (Auto) 0.1 (0.0-0.2) X10*3/uL Abs Immat Gran (auto) 0.10 H (0.00-0.03) X10*3/uL Absolute Neuts (auto) 7.3 (2.0-8.3) x10*3/uL Absolute Nucleated RBC 0.000 (0.0-0.012) X10*3/uL Nucleated RBC % (auto) 0.0 (0.0-0.2) /100WBC Sodium 138 (135-145) mmol/L Potassium 3.1 L (3.3-5.1) mmol/L Chloride 91 L (96-108) mmol/L Carbon Dioxide 30 H (22-29) mmol/L Anion Gap 20 (12-20) BUN 112 H (9-16) mg/dL Creatinine 6.10 H* (0.5-1.4) mg/dL Estim Creat Clear Calc 12.8 Estimated GFR 9 Random Glucose 111 (60-115) mg/dL Calcium 9.8 (8.4-10.2) mg/dL Phosphorus 6.3 H (2.7-4.5) mg/dL Magnesium 2.9 H (1.6-2.6) mg/dL Total Bilirubin 0.9 (0.0-1.0) mg/dL Direct Bilirubin 0.4 (0.0-0.5) mg/dL AST 18 (5-37) U/L ALT 15 (0-40) U/L Alkaline Phosphatase 96 (39-117) U/L NT-Pro-B Natriuret Pep 927.6 H (<300) pg/mL Total Protein 6.6 (6.5-8.0) g/dL Albumin 4.2 (3.5-5.0) g/dL Independent Interpretation I performed an independent interpretation of an: Plain X-Ray Interpretation: Chest x-ray without infiltrate or consolidation, no pleural effusion Radiology Impression Discussion of test interpretation with radiology: I have reviewed the radiologist's reading. Radiologist Impression: Procedure(s): XR chest 2V Accession Number(s): [id number] cc: Ami Almanza PA-C; Shanique Lam~ Reason for Exam: LE edema CLINICAL HISTORY: LE edema 2 view chest x-ray Comparison: CR/SR - XR CHEST 2 VIEWS - 06/16/25 13:19 EDT Findings: The lungs are clear. Heart size is normal. No acute fracture. IMPRESSION: 1. No acute findings. This document has been electronically signed by: Shiv Cheung MD on 07/06/2025 17:40:38 Prescription Management I considered prescription management with: Pain Medication Chronic Conditions Patient?s care impacted by: Other (CKD) Social Determinants Patient?s care significantly limited by Social Determinants of Health including: Other Social Determinant of Health Critical Care Time Critical Care Time Critical Care Time: Yes Total Critical Care Time: 35 Attestation: Critical care time in the amount of 35 minutes has been provided to the patient in terms of direct patient care, frequent reevaluation, consultation with nephrology/IR/hospitalist, review and interpretation of medical data and results, and management of potentially life-threatening conditions. This is all outside of any medical procedures. Discharge Plan Discharge Clinical Impression: SACHIN (acute kidney injury), Hypokalemia, Hypermagnesemia Patient Disposition: Admitted As Inpatient
[2025-07-06 12:49] LABS: MANUAL DIFF FLAG NO
[2025-07-06 12:50] LABS: Hematocrit 24.1 % (42.0-52.0); Hemoglobin 8.4 g/dl (14.0-18.0); Imm Gran Abs Auto 0.10 X10*3/uL (0.00-0.03); Imm Gran Pct Auto 1.1 % (0.0-0.4); Lymphocytes Absolute Auto 0.6 X10*3/uL (1.2-4.9); Mean Corpuscular HGB Conc 34.9 g/dl (31.0-36.0); Mean Corpuscular Hemoglobin 30.9 pg (27.0-33.0); Mean Corpuscular Volume 88.6 fL (80.0-98.0); NRBC Abs Auto 0.000 X10*3/uL (0.0-0.012); NRBC Pct Auto 0.0 /100WBC (0.0-0.2); Platelet Count 191 X10*3/uL (160-400); Red Blood Count 2.72 X10*6/uL (4.60-5.80); White Blood Count 9.3 X10*3/uL (4.8-10.8)
[2025-07-06 13:08] LABS: Alanine Aminotransferase 15 U/L (0-40); Albumin Level 4.2 g/dL (3.5-5.0); Alkaline Phosphatase 96 U/L (39-117); Anion Gap 20 (12-20); Aspartate Amino Transferase 18 U/L (5-37); Blood Urea Nitrogen 112 mg/dL (9-16); Calcium 9.8 mg/dL (8.4-10.2); Carbon Dioxide 30 mmol/L (22-29); Chloride 91 mmol/L (96-108); Creatinine Clr Calc Pharmacy 12.8; Estimated Glomerular Filt Rate 9; Potassium 3.1 mmol/L (3.3-5.1); Sodium 138 mmol/L (135-145); Total Protein 6.6 g/dL (6.5-8.0)
[2025-07-06 13:10] LABS: NT Pro B Type Natriuretic Pept 927.6 pg/mL (<300)
[2025-07-06 15:57] LABS: Magnesium 2.9 mg/dL (1.6-2.6)
--- NOTE | 2025-07-06 16:48 | P.HPHOSP_ITS ---
History of Present Illness Date of Service: 07/06/25 Chief Complaint: SACHIN 69-year-old man with a history of chronic kidney disease, hypertension presented to the ER with worsening renal failure. Patient follows with [facility] renal and the patient's kidney function has been getting worse and nephrology advised him to come to the ER for emergent dialysis. Patient denied any chest pain, shortness breath, nausea, vomiting, diarrhea, fever, chills. Creatinine was 6.10, potassium 3.1, BNP 927 but not in over overload. Patient received a dose of desmopressin in the ER as well as Tylenol. Plan will be to admit patient for further management and treatment of emergent dialysis. Review of Systems 2 Review of Systems: Denies any recent fever chills or decrease in appetite respiratory denies any shortness of breath or cough cardiovascular denied chest pain gastrointestinal denies any dysphagia abdominal pain nausea vomiting or diarrhea genitourinary denies any dysuria frequency or hematuria musculoskeletal denies any joint pain or swelling neuropsych denies any weakness or seizures all other systems reviewed are negative [facility] Medical History Spinal stenosis Bilateral cataracts Muscular deconditioning Localized swelling of both lower legs Skin irritation Peripheral edema MGUS (monoclonal gammopathy of unknown significance) Encounter for preventive care Gout Pre-diabetes Hypertension CKD (chronic kidney disease) Hospital discharge follow-up Establishing care with new doctor, encounter for Enlarged prostate Family History Father Congenital heart failure Mother Arthritis Surgical History Hx of colonoscopy Hx of umbilical hernia repair Hx of right inguinal hernia repair Social History Household Members: Spouse and Family Housing: House Do you presently have visiting nurse or other home services: No Alcohol intake: current Alcohol intake frequency: does not drink Patient Tobacco Use Status: Former Tobacco user Tobacco use type: Cigarette Advance Directives: No Advance Directives Information Provided: Yes Do you have a plan to hurt others: No Plan service: No Current occupational status: retired Cognitive needs: No Hearing needs: No Vision needs: Yes (rx glasses) Meds Allergies Allergy/AdvReac Type Severity Reaction Status Date / Time No Known Allergies Allergy Verified 07/06/25 12:00 Active Medications: Current Medications Acetaminophen (Acetaminophen 325 Mg Tablet) 650 mg PO Q6H PRN PRN Reason: Pain, Mild 1-3,fever,headache Calcium Carbonate (Calcium Carbonate 750 Mg Tab.Chew) 750 mg PO Q4H PRN PRN Reason: Heartburn Heparin Sodium (Porcine) (Heparin Sodium,Porcine 5,000 Unit/Ml Vial) 5,000 unit INTRACATH ONCE ONE Stop: 07/07/25 07:01 Acetaminophen (Ofirmev) 1,000 mg in 100 mls @ 400 mls/hr IV ONCE ONE Stop: 07/06/25 16:50 Magnesium Hydroxide (Milk Of Magnesia 30 Ml Oral.Susp) 30 ml PO DAILY PRN PRN Reason: Constipation Melatonin (Melatonin 3 Mg Tablet) 6 mg PO BEDTIME PRN PRN Reason: Insomnia Ondansetron HCl (Ondansetron Hcl 4 Mg/2 Ml Vial) 4 mg IVPUSH Q8H PRN PRN Reason: Nausea and Vomiting Sodium Chloride (0.9 % Sodium Chloride Flush 3 Ml Syringe) [facility] Medications ?Medication ?Instructions ?Recorded ?Confirmed ?Last Taken ?Type amlodipine 10 mg tablet 10 mg PO DAILY 07/06/25 Unk nown History furosemide 40 mg tablet 40 mg PO BID 07/06/25 Unkno wn History sodium bicarbonate 650 mg tablet 650 mg PO DAILY 07/06 Unknown History Physical Exam 2 Vital Signs and Narrative: Vital Signs: Last Vital Signs Temp 97.3 F 07/06/25 11:57 Pulse 73 07/06/25 11:57 Resp 18 07/06/25 11:57 BP 127/58 L 07/06/25 11:57 Pulse Ox 97 07/06/25 11:57 O2 Del Method Room Air 07/06/25 11:57 BMI result Body Mass Index 17.4 Appearing in no acute distress head is normocephalic atraumatic eyes pupils are PERRLA sclera is anicteric mouth throat mucous membranes are intact and moist neck is supple no lymphadenopathy, no JVD noted lung sounds are clear to auscultation heart regular rate rhythm, clear S1, S2 positive bowel sounds, abdomen is soft, nontender neuro patient is alert x3, no focal deficits Results Labs 07/06/25 12:44 07/06/25 12:44 Labs: Laboratory Results - last 24 hr 07/06/25 12:44 MCV 88.6 MCH 30.9 MCHC 34.9 RDW 14.1 Plt Count 191 MPV 8.7 L Immature Gran % (Auto) 1.1 H Neut % (Auto) 78.8 H Lymph % (Auto) 6.0 L [place] % (Auto) 10.7 Eos % (Auto) 2.8 Baso % (Auto) 0.6 Lymph # (Auto) 0.6 L [place] # (Auto) 1.0 Eos # (Auto) 0.3 Baso # (Auto) 0.1 Abs Immat Gran (auto) 0.10 H Absolute Neuts (auto) 7.3 Absolute Nucleated RBC 0.000 Nucleated RBC % (auto) 0.0 Anion Gap 20 Estim Creat Clear Calc 12.8 Estimated GFR 9 Random Glucose 111 Calcium 9.8 Phosphorus 6.3 H Magnesium 2.9 H Total Bilirubin 0.9 Direct Bilirubin 0.4 AST 18 ALT 15 Alkaline Phosphatase 96 NT-Pro-B Natriuret Pep 927.6 H Total Protein 6.6 Albumin 4.2 Assessment and Plan (1) SACHIN (acute kidney injury): Status: Acute Plan 69 year old man admitted for SACHIN now requiring permacath placement and dialysis SACHIN on CKD stage 4 Creatinine 6.10 Patient sent in by customer strategy manager Plan is to place PermCath and initiate dialysis Received DDAVP in the ER Hypokalemia Replete with oral potassium Normocytic anemia Likely secondary to chronic kidney disease No need for blood transfusion at this time. Hypertension Stable blood pressure Continue labetalol Gout Continue allopurinol Multiple myeloma Follows with [facility] oncology Recent bone marrow biopsy DVT prophylaxis with pneumatic compression boots Full code Quality Stroke Does the patient have a stroke diagnosis?: No VTE Prior VTE?: No VTE Risk Level:: Medical - moderate - high VTE Device Contraindication: N/A - Device Ordered VTE Drug Contraindication: Treatment Not Indicated
[2025-07-06] MEDS: Potassium Chloride ER 20 MEQ TAB.ER.PRT 40 MEQ PO (17:28)
[2025-07-06 18:35] VITALS: BP 104/51; PULSE 81; RESP 13; O2SAT 96
--- NOTE | 2025-07-06 19:14 | PHA.MEDREC ---
Addendum entered by Reggie Collins, PharmD 07/06/25 20:10: MED REC CHECKED BY [facility] Original Note: Pharmacy Consult ? Medication Reconciliation Pharmacy has completed the medication reconciliation. Spoke to patient at bedside to confirm med list. states patient is no longer taking Amlodipine 10 mg, and Gentamicin 0.1% oint. states patient takes Furosemide 80 mg (2x40 mg) BID, even though claims has Furosimide 40 mg BID. Patient had all his morning medications today.
--- NOTE | 2025-07-06 20:04 | HO.NURTONUR ---
Pt from home sent in after a follow up with nephrology for worsening renal failure. Pt reports lower extremity swelling but denied any chest pain, sob, n/v/d, fever, or any other symptoms of concern. Labs in the ED revealed creatinine 6.1, potassium 3.1, magnesium 2.9, BUN 112 and BNP 927. Chest xray- negative. Pt being admitted for further treatment and emergent dialysis. Pt is ca&ox3, and able to make his needs known. Pt has 20G IV in LAC and has been medicated per dec.
[2025-07-06 21:54] VITALS: BMI 27.2
[2025-07-06 22:00] VITALS: BP 121/56; PULSE 73; RESP 18; TEMP 36.1; O2SAT 94
[2025-07-07] VITALS (10 sets, daily range): BP systolic 115–153; BP diastolic 51–63; PULSE 77–84; RESP 11–19; TEMP 36.3–36.6; O2SAT 94–100; BMI 27.2
[2025-07-07] MEDS: 0.9 % Sodium Chloride Flush 3 ML SYRINGE IVFLUSH ×3 (00:08→23:41)
--- NOTE | 2025-07-07 04:33 | PC.NURSE ---
Pt requested home medications, including oxycodone. MD notified via [facility] at 20:53. MD aware. No new orders at this time.
[2025-07-07 05:21] LABS: MANUAL DIFF FLAG NO
[2025-07-07 05:22] LABS: Hematocrit 23.6 % (42.0-52.0); Hemoglobin 8.3 g/dl (14.0-18.0); Imm Gran Abs Auto 0.08 X10*3/uL (0.00-0.03); Imm Gran Pct Auto 0.9 % (0.0-0.4); Lymphocytes Absolute Auto 0.6 X10*3/uL (1.2-4.9); Mean Corpuscular HGB Conc 35.2 g/dl (31.0-36.0); Mean Corpuscular Hemoglobin 30.9 pg (27.0-33.0); Mean Corpuscular Volume 87.7 fL (80.0-98.0); NRBC Abs Auto 0.000 X10*3/uL (0.0-0.012); NRBC Pct Auto 0.0 /100WBC (0.0-0.2); Platelet Count 190 X10*3/uL (160-400); Red Blood Count 2.69 X10*6/uL (4.60-5.80); White Blood Count 8.8 X10*3/uL (4.8-10.8)
[2025-07-07 05:29] LABS: INTERNATIONAL NORM RATIO 1.0 (0.9-1.1); Prothrombin Time 11.1 SEC (10.9-12.4)
[2025-07-07 05:39] LABS: Anion Gap 21 (12-20); Blood Urea Nitrogen 115 mg/dL (9-16); Calcium 9.7 mg/dL (8.4-10.2); Carbon Dioxide 30 mmol/L (22-29); Chloride 93 mmol/L (96-108); Creatinine Clr Calc Pharmacy 10.4; Estimated Glomerular Filt Rate 9; Potassium 3.3 mmol/L (3.3-5.1); Sodium 141 mmol/L (135-145)
--- NOTE | 2025-07-07 07:00 | CA_ITS ---
Transthoracic Echocardiogram Patient (Last, First, Middle): Kevin Hubbard, Gender: M Date of : 1955 Age: 69 Procedure Date: 07/07/2025 Procedure Type: Transthoracic Echocardiogram Location: ER Height: 170.18 cm Weight: 78.47 kg BSA: 1.90 m2 Heart Rate: bpm BP: 119 / 58 mmHg Soldering Machine Tender: ROSEMARY/ARLEY Referring MD: Karina Murillo DNP PRIMARY CARE NURSE-BC Symptoms: Renal failure, Fluid overload Study Quality: Adequate ECG Rhythm: Sinus Conclusions: - The left ventricular systolic function is hyperdynamic. The visually estimated ejection fraction is >70%. - No obvious valvular pathology seen on this study. - There is a small loculated pericardial effusion overlying the right atrium. Findings Left Ventricle Normal left ventricular cavity size. There is normal left ventricular wall thickness. The left ventricular systolic function is hyperdynamic. The visually estimated ejection fraction is >70%. There is no evidence of regional wall motion abnormalities. Diastolic function is normal for age. Right Ventricle Normal right ventricular cavity size and systolic function. Atria The left atrium is mildly dilated. The right atrium is normal in size. Aortic Valve There is a normal trileaflet aortic valve. There is no aortic valve stenosis. There is no aortic valve regurgitation. Mitral Valve The mitral valve appears normal. There is trace mitral valve regurgitation. There is no mitral valve stenosis. Pulmonic Valve The pulmonic valve is likely normal. Tricuspid Valve There is trace tricuspid valve regurgitation. There is no evidence of pulmonary hypertension. Great Vessels The asc aorta and aortic arch are normal in size. Venous The inferior vena cava is normal in size and collapses greater than 50% with inspiration. Pericardium/Pleural There is a small loculated pericardial effusion overlying the right atrium. Prior Study Comparison No prior study available for comparison. Recommendations, Care & Conclusions No obvious valvular pathology seen on this study. Measurements 2D Linear Measurements IVSd: 0.75 0.6-0.9/0.6-1.0 cm LVIDd: 4.90 3.9-5.3/4.2-5.9 cm LVIDd Index: 2.58 2.4-3.2/2.2-3.1 cm/m2 LVIDs: 3.30 2.0-3.6 cm LVPWd: 0.90 0.7-1.1 cm LA Diam: 3.40 2.7-3.8/3.0-4.0 cm LAIDs Index: 1.79 1.5-2.3 cm/m2 LV Mass: 169.36 67-162/88-224 g LV Mass Index: 89.14 43-95/49-115 g/m2 LVOT Diam: 2.20 3.0+(-)1.3 cm 2D Systolic Function EF 4C: 64.10 >55% EF 2C: 68.20 >55% EF BiP: 67.10 >55% Mitral Valve MV Pk E: 0.89 MV PK A: 0.98 MV Decel Time: 247.00 E/A: 0.90 E'Lateral: 10.20 E'Medial: 9.57 E/E' Med: 9.30 E/E' Lat: 8.70 PHT: 72.00 MVA PHT: 3.06 Decel Cooke: 3.59 Aortic Valve AoV Pk Lazaro: 1.92 AoV Mn Lazaro: 1.33 AoV VTI: 0.39 AoV Pk Grad: 15.00 Aov Mn Grad: 8.00 DARYL Cont.VTI: 2.98 LVOT LVOT Pk Lazaro: 1.70 LVOT Mn Lazaro: 1.05 LVOT VTI: 0.31 LVOT Pk Grad: 12.00 LVOT Mn Grad: 5.00 LVOT Diam: 2.20 LVOT Area: 3.80 Diastolic Function MV Pk E: 0.89 MV Pk A: 0.98 E/A: 0.90 E'Medial: 9.57 E/E' Med: 9.30 E' Laterial: 10.20 E/E' Lat: 8.70 Right Ventricle TAPSE (mm): 31.50 TVS' Lazaro: 19.70 Tricuspid Valve TR Pk Lazaro: 2.24 TR Pk Grad: 20.00 RA Press: 3.00 RVSP: 23.00 Great Vessels Aorta Sinus of Valsalva: 3.50 2.0-3.5 cm Ao Asc: 3.10 2.1-3.4 cm Ao Arch: 2.60 Pulmonary Veins Pulm Vein S/D 1.70 Pulmonary Valve PV Pk Lazaro: 0.99 Peak PV Grad: 4.00 Updated in Other Vendor System with Status of Final Brennan Chapa MD electronically signed on 07/07/2025 3:45:39 PM with status of Final
--- NOTE | 2025-07-07 12:21 | P.CONNP_ITS ---
History of Present Illness Reason for Consult Consult date: 07/07/25 Chief Complaint Chief complaint: SACHIN History of Present Illness Narrative: 69 y/o male with advanced renal disease, HTN. [place] [facility] [place] with bilateral hand swelling and pain, had not had medical care in many years. His creatinine was elevated ~6, unclear if acute or chronic at the time, but remained stable suggesting CKD. 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 Blood work at the time showed elevated kappa/lambda light chain ratio of 3.07, C3 and C4 both low. Serum immunofixation with kappa monoclonal band present in April and on repeat in June 2025. Has an ongoing anemia. Patient has been followed by [facility], recently had a bone marrow biopsy (results pending). He presented 07/06/25 after abnormal labs through personnel counselor Dr Munroe. Patient reports his hands are in pain, otherwise no currently pain- though notes he does have intermittent back pain. He denies shortness of breath, chest pain, flank pain, nausea/vomiting, pruritus. Endorses generalized weakness and fatigue. He continues to make urine (none recorded, but patient and report he does continue to make urine). Creatinine 6.22 with BUN of 115. Permcath was placed this a.m. and patient was initiated on dialysis. Review of Systems Review of Systems Yes all other systems are reviewed and are negative [facility] Past Medical History Medical History Spinal stenosis Bilateral cataracts Muscular deconditioning Localized swelling of both lower legs Skin irritation Peripheral edema MGUS (monoclonal gammopathy of unknown significance) Encounter for preventive care Gout Pre-diabetes Hypertension CKD (chronic kidney disease) Hospital discharge follow-up Establishing care with new doctor, encounter for Enlarged prostate Family History Family History Father Congenital heart failure Mother Arthritis Surgical History Surgical History Hx of colonoscopy Hx of umbilical hernia repair Hx of right inguinal hernia repair Social History Social History Household Members: Spouse Housing: House Do you presently have visiting nurse or other home services: Yes Unable to assess alcohol history related to: Unknown Alcohol intake: current Alcohol intake frequency: does not drink Patient Tobacco Use Status: Former Tobacco user Tobacco use type: Cigarette Smoked in Last 30 Days: Yes Use of substances other than those prescribed or required for medical reasons: Unknown Currently Displaying Signs/Symptoms of Drug Intoxication Withdrawal: No Have you been hit, kicked, punched, or otherwise hurt by someone within the past year? If so, by whom?: No Do you feel safe in your current relationship?: Yes Is there a partner from a previous relationship who is making you feel unsafe now?: No Are you made to feel afraid or neglected: No Advance Directives: No Advance Directives Information Provided: Yes Do you have a plan to hurt others: No Plan Recently lost weight without trying: Yes How much weight loss: 14-23 pounds Eating poorly because of decreased appetite: No Nutrition screen score: 4 Poor oral hygiene: No service: No Current occupational status: retired Cognitive needs: No Hearing needs: No Vision needs: Yes (rx glasses) Meds Allergies Allergy/AdvReac Type Severity Reaction Status Date / Time No Known Allergies Allergy Verified 07/06/25 12:00 Active Medications: Current Medications Acetaminophen (Acetaminophen 325 Mg Tablet) 650 mg PO Q6H PRN PRN Reason: Pain, Mild 1-3,fever,headache Last Admin: 07/07/25 11:48 Dose: 650 mg Calcium Carbonate (Calcium Carbonate 750 Mg Tab.Chew) 750 mg PO Q4H PRN PRN Reason: Heartburn Docusate Sodium (Docusate Sodium 100 Mg/10 Ml Liquid) 50 mg PO DAILY PRN PRN Reason: Constipation Gabapentin (Gabapentin 100 Mg Capsule) 100 mg PO DAILY@1800 SRINATH Heparin Sodium (Porcine) (Heparin Sodium,Porcine 5,000 Unit/Ml Vial) 5,000 unit INTRACATH ONCE ONE Stop: 07/08/25 10:01 Desmopressin Acetate 20 mcg/ (Sodium Chloride) 55 mls @ 100 mls/hr IV ONCE ONE Stop: 07/06/25 17:32 Magnesium Hydroxide (Milk Of Magnesia 30 Ml Oral.Susp) 30 ml PO DAILY PRN PRN Reason: Constipation Melatonin (Melatonin 3 Mg Tablet) 6 mg PO BEDTIME PRN PRN Reason: Insomnia Last Admin: 07/07/25 02:42 Dose: 6 mg Ondansetron HCl (Ondansetron Hcl 4 Mg/2 Ml Vial) 4 mg IVPUSH Q8H PRN PRN Reason: Nausea and Vomiting Oxycodone HCl (Oxycodone Hcl Immed Release 5 Mg Tablet) 5 mg PO BID PRN PRN Reason: Pain, Severe (Pain Scale 7-10) Sodium Chloride (0.9 % Sodium Chloride Flush 3 Ml Syringe) 3 ml IVFLUSH QSHIFT [facility] Last Admin: 07/07/25 08:56 Dose: Not Given Home Medications ?Medication ?Instructions ?Recorded ?Confirmed ?Last Taken ?Type docusate sodium 50 mg capsule 50 mg PO DAILY PRN Const ipation 07/06/25 07/06/25 07/06/25 History (Stool Softener) furosemide 40 mg tablet 80 mg PO BID 07/06/2507/06/25 History gabapentin 100 mg capsule 100 mg PO DAILY@1800 pain 07/06/25 07/06/25 History sodium bicarbonate 650 mg tablet 650 mg PO DAILY 07/0607/06/25 07/06/25 History Physical Exam Vital Signs: Last Vital Signs Temp 97.4 F 07/07/25 07:31 Pulse 83 07/07/25 10:05 Resp 14 07/07/25 10:05 BP 137/51 L 07/07/25 10:05 Pulse Ox 97 07/07/25 10:05 O2 Del Method Room Air 07/07/25 10:05 O2 Flow Rate 2 07/07/25 10:00 BMI result Body Mass Index 27.2 Const General: no acute distress, alert and awake Resp Effort & Inspection: normal respiratory effort and able to speak in complete sentences Auscultation: clear to auscultation bilaterally Cardio Rate: regular rate Rhythm: regular rhythm Heart sounds: S1 normal heart sound present and S2 normal heart sound present GI Palpation (GI): Soft to palpation and nontender Skin Rashes: rashes noted (BLE erythema ) Extrem General: Yes edema (BLE edema, +2) Results Lab Results 07/07/25 05:16 07/07/25 05:16 Lab results: Chemistry 07/06/25 07/07/25 12:44 05:16 Sodium 138 141 Potassium 3.1 L 3.3 Carbon Dioxide 30 H 30 H BUN 112 H 115 H Creatinine 6.10 H* 6.22 H* Calcium 9.8 9.7 Phosphorus 6.3 H Hematology 07/06/25 07/07/25 12:44 05:16 WBC 9.3 8.8 Hgb 8.4 L 8.3 L Plt Count 191 190 Assessment and Plan (1) ESRD needing dialysis: Status: Acute Plan Patient with renal failure, likely ESRD now requiring dialysis. Likely has gammopathy of renal significance- evidence of renal failure from monoclonal gammopathy- light chain casts on biopsy. permcath in place- patient receiving dialysis now. Hgb 8.3, 20,000 units of procrit ordered potassium 3.3, will use a 3K bath for now calcium 9.7, phos 6.3- will add phos binder if phos elevation persists with ongoing dialysis patient appears hypervolemic, will remove fluid as tolerated recommend low potassium, low phosphorus, low sodium diet. recommend 1.5L/24 hour fluid restriction recommend hematology consult- will start process of workup with skeletal survey. Patient may need plasmaphoresis treatment in the coming days (may need to be done [place] [facility] will also check TTR amyloidosis genetic testing continue supportive care Discussed with Dr Medina, Dr Munroe Procedures Date of Service Date of Service: 07/07/25
--- NOTE | 2025-07-07 14:31 | MHC.CLN ---
CONSULT PT WITH 16% SIGNIFICANT WT LOSS X90 DAYS R/T WORSENING RENAL FAILURE, MULTIPLE MYELOMA FOLLOWED BY [facility] [place] [facility] PT IS HERE FOR EMERGENT HD. WT REMAINS OVER WT FOR HT DIET RX: 2GM NA-RECOMMEND LOW PHOS ADDED TO DIET MONITOR PO INTAKE CLOSELY WILL ADD RENAL FRIENDLY SUPPLEMENT IF PO INTAKE POOR SEE FULL ASSESSMENT
--- NOTE | 2025-07-07 15:54 | P.PNIM_ITS ---
Subjective Subjective Date of Service: 07/07/25 Interval History: Seen in hemodialysis. Had received hemodialysis session via right PermCath that was placed 07/07/2025. Patient is currently asymptomatic, denies abdominal chest pain. Sleepy. Review of Systems Review of Systems: Yes all other systems are reviewed and are negative Physical Exam 2 Exam: Exam: General: A&O x3, oriented to time place person and situation, comfortable, no pain Cardiac: S1, S2 auscultated with no S3/4, no MRG. Well perfused. Respiratory: Normal breath sounds auscultated throughout all lung zones, without wheezing, rales. Normal rate. GI/ : No abdominal pain on palpation, no masses or distentions. MSK: Normal ambulation without pain at bony prominences or musculature. PermCath noted at the right subclavian space - no fluctuance, bleeding noted . Neurological: Normal neurological examination on overview, without obvious CN II-XII abnormalities. Vital Signs: Vital Signs: Last Vital Signs Temp 97.4 F 07/07/25 07:31 Pulse 83 07/07/25 10:05 Resp 14 07/07/25 10:05 BP 137/51 L 07/07/25 10:05 Pulse Ox 97 07/07/25 10:05 O2 Del Method Room Air 07/07/25 10:05 O2 Flow Rate 2 07/07/25 10:00 BMI result Body Mass Index 27.2 Objective Data Active Medications Acetaminophen (Acetaminophen 325 Mg Tablet) 650 mg PO Q6H PRN PRN Reason: Pain, Mild 1-3,fever,headache Last Admin: 07/07/25 11:48 Dose: 650 mg Documented By: DOBROB Calcium Carbonate (Calcium Carbonate 750 Mg Tab.Chew) 750 mg PO Q4H PRN PRN Reason: Heartburn Docusate Sodium (Docusate Sodium 100 Mg/10 Ml Liquid) 50 mg PO DAILY PRN PRN Reason: Constipation Gabapentin (Gabapentin 100 Mg Capsule) 100 mg PO DAILY@1800 SRINATH Heparin Sodium (Porcine) (Heparin Sodium,Porcine 5,000 Unit/Ml Vial) 5,000 unit INTRACATH ONCE ONE Stop: 07/08/25 10:01 Desmopressin Acetate 20 mcg/ (Sodium Chloride) 55 mls @ 100 mls/hr IV ONCE ONE Stop: 07/06/25 17:32 Magnesium Hydroxide (Milk Of Magnesia 30 Ml Oral.Susp) 30 ml PO DAILY PRN PRN Reason: Constipation Melatonin (Melatonin 3 Mg Tablet) 6 mg PO BEDTIME PRN PRN Reason: Insomnia Last Admin: 07/07/25 02:42 Dose: 6 mg Documented By: BILLIE Ondansetron HCl (Ondansetron Hcl 4 Mg/2 Ml Vial) 4 mg IVPUSH Q8H PRN PRN Reason: Nausea and Vomiting Oxycodone HCl (Oxycodone Hcl Immed Release 5 Mg Tablet) 5 mg PO BID PRN PRN Reason: Pain, Severe (Pain Scale 7-10) Sodium Chloride (0.9 % Sodium Chloride Flush 3 Ml Syringe) 3 ml IVFLUSH QSHIFT SRINATH Last Admin: 07/07/25 08:56 Dose: Not Given Documented By: IZAIAH Non-Admin Reason: Not In Room Labs 07/07/25 05:16 07/07/25 05:16 Labs: Laboratory Results - last 24 hr 07/06/25 07/07/25 12:44 05:16 MCV 87.7 MCH 30.9 MCHC 35.2 RDW 14.0 Plt Count 190 MPV 8.7 L Immature Gran % (Auto) 0.9 H Neut % (Auto) 79.2 H Lymph % (Auto) 6.3 L [place] % (Auto) 10.6 Eos % (Auto) 2.4 Baso % (Auto) 0.6 Lymph # (Auto) 0.6 L [place] # (Auto) 0.9 Eos # (Auto) 0.2 Baso # (Auto) 0.1 Abs Immat Gran (auto) 0.08 H Absolute Neuts (auto) 6.9 Absolute Nucleated RBC 0.000 Nucleated RBC % (auto) 0.0 PT 11.1 INR 1.0 Anion Gap 21 H Estim Creat Clear Calc 10.4 Estimated GFR 9 Random Glucose 114 Calcium 9.7 Phosphorus 6.3 H Magnesium 2.9 H Assessment and Plan (1) Uncontrolled hypertension: Status: Acute (2) Renal failure: Status: Acute (3) SACHIN (acute kidney injury): Status: Acute (4) CKD (chronic kidney disease): Status: Acute (5) ESRD needing dialysis: Status: Acute (6) Proteinuria: Status: Acute (7) Metabolic acidosis: Status: Acute (8) Hypokalemia: Status: Acute (9) Hypermagnesemia: Status: Acute (10) Anemia: Status: Acute (11) MGUS (monoclonal gammopathy of unknown significance): Status: Acute (12) Plasma cell disorder: Status: Acute Plan 69 year old man with a background of HTN, CKD, presents with rapidly worsening renal failure, admitted for SACHIN s/p PermCath 07/07/2025 and initiation of hemodialysis SACHIN on CKD stage 4 ESRD HD S/p PermCath placement 07/07/2025 Gammopathy of renal significance Creatinine 6.10 Patient sent in by administrative volunteer Plan is to place PermCath and initiate dialysis Received DDAVP in the ER 1st session of hemodialysis via right-sided PermCath 07/07 ESRD likely 2/2 gammopathy of renal significance. PLAN - continue hemodialysis as per Nephrology - check BMP daily - low-potassium, low phosphorus, low-sodium diet - 1.5 L fluid restriction - May require plasmapheresis in the next coming days Gammopathy of renal significance Hematology/oncology consulted during inpatient stay. May require plasmapheresis treatment during inaptient stay Would require transfer to [facility] [place] PLAN - Hematology consultation - Skeletal survey - consider amyloidosis in differential Hypokalemia Replete with oral potassium Normocytic anemia Likely secondary to chronic kidney disease No need for blood transfusion at this time. Hypertension Stable blood pressure Continue labetalol Gout Continue allopurinol QU[employer]ITY [facility] - VTE: Heparin 5000 t.i.d. SQ - CODE STATUS: Code - DIET: Low potassium, low phosphorus low-sodium diet Total time managing care of this patient today: 45 minutes. Quality Stroke Does the patient have a stroke diagnosis?: No VTE Prior VTE?: No VTE Risk Level:: Medical - moderate - high VTE Device Contraindication: N/A - Device Ordered VTE Drug Contraindication: Treatment Not Indicated
--- NOTE | 2025-07-07 16:16 | MHC.CM.PN ---
CM MET WITH PTS AT BEDSIDE SHE REPORTS SHE ASSISTS HIM WITH CARE PRN PT IS ACTIVE WITH [facility] FOR [facility] FOR SN AND PT PCP: [facility] TORRES PT DOES NOT HAVE A HCP, CM WILL DISCUSS IT WITH HIM WHEN HE IS AWAKE DCP TBD: PT NEW TO HD, WILL NEED OUTPATIENT SLOT ARRANGED PER , POSSIBLE TRANSFER TO [facility] [place] HOME WITH RESUMPTION OF SERVICES CM FOLLOWING
--- NOTE | 2025-07-07 16:57 | P.CNHO_ITS ---
Subjective - Subjective Chief complaint: Consult for: Multiple myeloma. Patient: known to practice within the last 3 years Consult date: 07/07/25 Requesting Physician: Margarita. Primary Care Provider: Ami Almanza PA-C Family Provider: Ami Peoples. Medical Summary: DIAGNOSIS: MULTIPLE MYELOMA. Underwater Roboticist Utilized?: No - [place]ish Speaking HPI - Consult Narrative Reason for consult: Consult for: Multiple myeloma. Narrative: Kevin Hubbard is a 69 year old gentleman, with a history of chronic kidney disease, hypertension presented to the ER with worsening renal failure. Patient follows with [facility] [facility]. His kidney function has been getting progressively worse. Dr. Munroe advised him to come to the ER for emergent dialysis. He denied any fever, chills, chest pain, shortness breath, nausea, vomiting, diarrhea. He does have a poor appetite. Creatinine was 6.10, potassium 3.1, BNP 927 but not in fluid overload. He received a dose of desmopressin in the ER as well as Tylenol. Pt. has been admitted for further management and Emergent dialysis. Review of Systems 2 Review of Systems: Denies any recent fever chills. Has decreased appetite Respiratory: denies any shortness of breath or cough Cardiovascular: denies chest pain Gastrointestinal: denies any dysphagia abdominal pain nausea vomiting or diarrhea Genitourinary: denies any dysuria frequency or hematuria Musculoskeletal: denies any joint pain or swelling Neuropsych: denies any weakness or seizures All other systems reviewed are negative. [facility] Medical History: Spinal stenosis Bilateral cataracts Muscular deconditioning Localized swelling of both lower legs Skin irritation Peripheral edema MGUS (monoclonal gammopathy of unknown significance) Encounter for preventive care Gout Pre-diabetes Hypertension CKD (chronic kidney disease) Hospital discharge follow-up Establishing care with new doctor, encounter for Enlarged prostate Family History: Father . Mother Had arthritis. No known Heme-Onc problems in the family. Social history: He is currently retired. He quit smoking awhile back. Denies alcohol. Review of Systems - Constitutional Reports system reviewed and no additional complaints, except as documented, Reports fatigue, Reports lack of energy, Reports malaise, Reports poor appetite, Reports weight loss - Eyes Reports system reviewed and no additional complaints, except as documented - ENT Reports system reviewed and no additional complaints, except as documented - Cardiovascular Reports system reviewed and no additional complaints, except as documented - Respiratory Reports no additional respiratory complaints - Gastrointestinal Reports system reviewed and no additional complaints, except as documented - Genitourinary Genitourinary: Reports no additional male genitourinary complaints - Musculoskeletal Reports system reviewed and no additional complaints, except as documented - Integumentary/Breasts Skin/Breast: Reports no additional skin complaints - Neurologic Reports system reviewed and no additional complaints, except as documented - Psychiatric Reports system reviewed and no additional complaints, except as documented - Endocrine Reports no additional endocrine complaints - Hematologic/Lymphatic Reports system reviewed and no additional complaints, except as documented - Allergic/Immunologic Reports system reviewed and no additional complaints, except as documented Oncology Screenings - ECOG Performance Status ECOG Performance Status: 2 [facility] Medical History: Medical History (Last Reviewed 07/06/25 @ 16:22 by SAL Dawson) Bilateral cataracts CKD (chronic kidney disease) Encounter for preventive care Enlarged prostate Establishing care with new doctor, encounter for Gout Hospital discharge follow-up Hypertension Localized swelling of both lower legs MGUS (monoclonal gammopathy of unknown significance) Muscular deconditioning Peripheral edema Pre-diabetes Skin irritation Spinal stenosis Functional capacity: wheelchair bound Patient : No Family History: Family History (Last Reviewed 07/06/25 @ 16:22 by SAL Dawson) Father Congenital heart failure Mother Arthritis Surgical History: Surgical History (Last Reviewed 07/06/25 @ 16:22 by SAL Dawson) Hx of colonoscopy Hx of right inguinal hernia repair Hx of umbilical hernia repair Social History: Social History (Last Reviewed 07/06/25 @ 16:22 by SAL Dawson) Living Situation History: Household Members: Spouse Housing: House Do you presently have visiting nurse or other home services: Yes Tobacco History: Patient Tobacco Use Status: Former Tobacco user Tobacco use type: Cigarette Occupation Assessmet: service: No Current occupational status: retired Home Medications and Allergies Current Medications: Current Medications Acetaminophen (Acetaminophen 325 Mg Tablet) 650 mg PO Q6H PRN PRN Reason: Pain, Mild 1-3,fever,headache Last Admin: 07/07/25 11:48 Dose: 650 mg Calcium Carbonate (Calcium Carbonate 750 Mg Tab.Chew) 750 mg PO Q4H PRN PRN Reason: Heartburn Docusate Sodium (Docusate Sodium 100 Mg/10 Ml Liquid) 50 mg PO DAILY PRN PRN Reason: Constipation Gabapentin (Gabapentin 100 Mg Capsule) 100 mg PO DAILY@1800 SRINATH Heparin Sodium (Porcine) (Heparin Sodium,Porcine 5,000 Unit/Ml Vial) 5,000 unit INTRACATH ONCE ONE Stop: 07/08/25 10:01 Desmopressin Acetate 20 mcg/ (Sodium Chloride) 55 mls @ 100 mls/hr IV ONCE ONE Stop: 07/06/25 17:32 Magnesium Hydroxide (Milk Of Magnesia 30 Ml Oral.Susp) 30 ml PO DAILY PRN PRN Reason: Constipation Melatonin (Melatonin 3 Mg Tablet) 6 mg PO BEDTIME PRN PRN Reason: Insomnia Last Admin: 07/07/25 02:42 Dose: 6 mg Ondansetron HCl (Ondansetron Hcl 4 Mg/2 Ml Vial) 4 mg IVPUSH Q8H PRN PRN Reason: Nausea and Vomiting Oxycodone HCl (Oxycodone Hcl Immed Release 5 Mg Tablet) 5 mg PO BID PRN PRN Reason: Pain, Severe (Pain Scale 7-10) Sodium Chloride (0.9 % Sodium Chloride Flush 3 Ml Syringe) 3 ml IVFLUSH QSHIFT SRINATH Last Admin: 07/07/25 08:56 Dose: Not Given Home Medications ?Medication ?Instructions ?Recorded ?Confirmed ?Type docusate sodium 50 mg capsule 50 mg PO DAILY PRN Constipation 07/06/25 07/06/25 History (Stool Softener) furosemide 40 mg tablet 80 mg PO BID 07/06/25 07/06/25 History Held on 07/08/25. Instructions: On hold during hospital stay - resume as indicated gabapentin 100 mg capsule 100 mg PO DAILY@1800 pain 07/06/2507/06 History sodium bicarbonate 650 mg tablet 650 mg PO DAILY 07/06/25 07/06/25 Histor y Allergies Allergy/AdvReac Type Severity Reaction Status Date / Time No Known Allergies Allergy Verified 07/06/25 12:00 Physical Exam Vital signs: Vital Signs Temp 97.9 F 07/07/25 16:00 Pulse 77 07/07/25 16:00 Resp 19 07/07/25 16:00 BP 133/63 07/07/25 16:00 Pulse Ox 96 07/07/25 16:00 O2 Del Method Room Air 07/07/25 16:00 O2 Flow Rate 2 07/07/25 10:00 Intake & Output 07/06/25 07/07/25 07/07/25 18:59 06:59 18:59 Intake Total 100 / 420 320 / 420 50 / 50 Balance 100 / 420 320 / 420 50 / 50 Intake: Intake, Oral Amount 320 / 320 Intake, IV Amount 100 / 100 50 / 50 Acetaminophen 1,000 mg In 100 100 / 100 ml @ 400 mls/hr IV ONCE ONE Rx# :[id number] [email or web address] Sodium/Dextrose,Iso 2 50 / 50 gm In 50 ml @ 100 mls/hr IV ONCE ONE Rx#:[id number] Other: Meal Refused No NPO Yes Breakfast % Eaten NPO Lunch % Eaten 0% Number of Unmeasured Voids 4 2 Urine Bathroom Last Bowel Movement 07/03/25 Weight 79.3 kg 78.8 kg 78.8 kg Weight 78.8 kg - Constitutional Present: moderate distress - Routine HEENT Exam Head: Present: normal inspection, normocephalic ENT: Present: mucous membranes moist - Routine Neck Exam Present: supple - Routine Respiratory Exam Present: CTAB - Routine Cardiovascular Exam Cardiovascular: Present: RRR, S1, S2 - Routine Abdominal Exam Present: soft, nontender - Routine Extremities Exam Present: nontender - Routine Skin Exam Present: intact, normal turgor - Routine Neurological Exam Present: alert Hem/Onc Consult Result - Labs CBC & Chem 7: 07/08/25 09:52 07/08/25 09:52 Labs: Short CBC 07/07/25 Range/Units 05:16 WBC 8.8 (4.8-10.8) X10*3/uL Hgb 8.3 L (14.0-18.0) g/dl Hct 23.6 L (42.0-52.0) % Plt Count 190 (160-400) X10*3/uL BMP 07/07/25 05:16 Sodium 141 Potassium 3.3 Chloride 93 L Carbon Dioxide 30 H BUN 115 H Creatinine 6.22 H* Calcium 9.7 Assessment and Plan Patient Active problem list reviewed?: Yes (1) Multiple myeloma Status: Acute Assessment and plan: This is a pleasant 69-year-old gentleman, who presented with elevated total protein level and monoclonal gammopathy. DIFFERENTIAL DIAGNOSIS: 1. MGUS: Is less likely. 2. MULTIPLE MYELOMA: He does have anemia, elevated creatinine and elevated protein level, with monoclonal gammopathy, and elevated free light chain ratio. I proceeded with further evaluation. Checked CBCD: WBC 4.9, HGB 7.2, HCT 21.1, PLT 158. BUN 58, PROCUREMENT MANAGER is 4.72. LDH: 238. I rechecked SIEP: 516/34/5. Urine SIEP: Free light chain kappa band seen. Faint kappa light chains. Free light chain ratio: 202.83. l checked beta 2 microglobulin level: 12.60. 07/11. SIEP: IgA 4147. Free light chain ratio: 15.66. I proceeded with a bone marrow exam. This was done on 07/04 and revealed: Involvement by patient's known Plasma cell dyscrasia. Plasma cells are 14% of the aspirate in 30% of the biopsy/clot. Concurrent flow cytometry: Positive for kappa light chain restricted plasma cells. B and T cells without aberrant antigen expression. No increase in blast gate or CD34 positive events identified. Myeloma FISH: Gains of chromosome 5 9 and 15. Consistent with hyperdiploidy. No high-risk cytogenetics seen. TTR amyloidosis genetic testing, pending on the bone marrow. Though amyloid is associated with lambda light chains. He now presents with renal failure, now requiring dialysis. most likely has gammopathy of renal significance- evidence of renal failure from monoclonal gammopathy- light chain casts on biopsy. Pt had a permcath placed, receiving dialysis now. Hgb 8.3. calcium 9.7. He appeared hypervolemic, so extra fluid was removed. Fluid restriction of 1.5L/24 hour instituted. PLAN: For the anemia he has been started on 20,000 units of procrit, to be given Friday, Friday and Friday with dialysis. Started on low potassium, low phosphorus, low sodium diet. Potassium was 3.3, so using a 3K bath. Phos 6.3- phos binder added. I have ordered PET scan for staging as an outpatient. He had skeletal survey, while he was here. From 07/08: There is a mottled appearance of left greater than right proximal humeri and scapulas. This may be due to osteopenia, but underlying lytic lesions cannot definitively be ruled in or out. There is a focal area of osteopenia involving the cortex of the proximal right radius, just distal to the radial tuberosity, that is probably related to a vascular channel rather than a lytic lesion. Will monitor his labs carefully. He may need to be transferred to [facility] [place], for plasmapharesis treatment in the future. I discussed the case with Dr. Chirinos. All his questions were answered to his satisfaction. Thank you, CC: Ami Peoples. Addendum: Patient underwent a course of dialysis. He was then transferred to [facility] for consideration of plasmapheresis. Appreciate the hospitalist assistance in his care. - Time Spent With Patient Time Spent with Patient (in minutes): 30
[2025-07-08] MEDS: oxyCODONE HCl Immed Release 5 MG TABLET PO ×4 (01:36→20:14)
[2025-07-08 03:42] VITALS: BP 146/71; PULSE 88; RESP 18; TEMP 37.4; O2SAT 95
[2025-07-08 05:37] LABS: HBS Num1 0.95 mIU/mL (0-7.99); HBc Num1 0.05 S/CO (0.00-0.79); HBsAGNum1 0.33 S/CO (0.00-0.99); Hepatitis B Surface Antigen Negative (Negative); ~HepC Num1 0.50 S/CO (0.00-0.79); ~Hepatitis B Surface Antibody NONREACTIVE (Nonreactive); ~Hepatitis C Antibody Nonreactive (Nonreactive)
--- NOTE | 2025-07-08 09:47 | MHC.CLN ---
F/U DIET RX 2 GRAM SODIUM, LOW PHOSPHORUS. RECEIVING HEMODIALYSIS DUE TO WORSENING RENAL FAILURE. PO INTAKE 0-50%. FOLLOW FOR PO INTAKE AND LABS.
[2025-07-08 10:00] LABS: Hematocrit 28.2 % (42.0-52.0); Hemoglobin 9.6 g/dl (14.0-18.0); Mean Corpuscular HGB Conc 34.0 g/dl (31.0-36.0); Mean Corpuscular Hemoglobin 30.8 pg (27.0-33.0); Mean Corpuscular Volume 90.4 fL (80.0-98.0); NRBC Abs Auto 0.000 X10*3/uL (0.0-0.012); NRBC Pct Auto 0.0 /100WBC (0.0-0.2); Platelet Count 217 X10*3/uL (160-400); Red Blood Count 3.12 X10*6/uL (4.60-5.80); White Blood Count 10.2 X10*3/uL (4.8-10.8)
[2025-07-08 10:15] LABS: Anion Gap 15 (12-20); Blood Urea Nitrogen 33 mg/dL (9-16); Calcium 9.7 mg/dL (8.4-10.2); Carbon Dioxide 28 mmol/L (22-29); Chloride 101 mmol/L (96-108); Creatinine Clr Calc Pharmacy 26.1; Estimated Glomerular Filt Rate 26; Potassium 3.3 mmol/L (3.3-5.1); Sodium 141 mmol/L (135-145)
--- NOTE | 2025-07-08 10:40 | P.PNNPD_ITS ---
Subjective Subjective Date of Service: 07/08/25 This patient was seen during dialysis. Interval history: Here with renal failure requiring initiation of dialysis, hematology also following given gammopathy of renal significance. no events noted. Physical Exam Vital Signs: Vital Signs: Last Vital Signs Temp 99.3 F 07/08/25 03:42 Pulse 88 07/08/25 03:42 Resp 18 07/08/25 03:42 BP 146/71 H 07/08/25 03:42 Pulse Ox 95 07/08/25 03:42 O2 Del Method Room Air 07/08/25 03:42 O2 Flow Rate 2 07/07/25 10:00 BMI result Body Mass Index 27.2 Const: General: no acute distress, alert and awake Resp: Effort & Inspection: normal respiratory effort and able to speak in complete sentences Auscultation: clear to auscultation bilaterally Cardio: Rate: regular rate Rhythm: regular rhythm Heart sounds: S1 normal heart sound present and S2 normal heart sound present GI: Palpation (GI): Soft to palpation and nontender Skin: Rashes: rashes noted (BLE erythema ) Extrem: General: Yes edema (BLE edema, +2) Assessment & Plan Assessment and plan (1) ESRD needing dialysis: Status: Acute (2) Monoclonal gammopathy of renal significance (MGRS): Status: Acute Plan Patient with renal failure, likely ESRD now requiring dialysis. Has gammopathy of renal significance- evidence of renal failure from monoclonal gammopathy- light chain casts on biopsy. permcath in place- patient receiving dialysis today. Will plan for a third dialysis session tomorrow, 07/09. Hgb 8.3, 20,000 units of procrit administered 07/07. potassium 3.3, will use a 3K bath for now calcium 9.7, phos 2.4- hold phos binders, may liberalize diet. patient appears slightly hypervolemic, fluid removal with dialysis as tolerated recommend low potassium, low sodium diet. recommend 1.5L/24 hour fluid restriction hematology also following- plan for skeletal survey today. Patient may need plasmaphoresis treatment in the coming days (may need to be done at [facility] [place]). TTR amyloidosis genetic testing pending. continue supportive care Discussed with Dr Medina Time Spent With Patient Time: Total time managing care of this patient today ____ minutes. Procedures Date of Service Date of Service: 07/08/25
--- NOTE | 2025-07-08 13:59 | MHC.CM.PN ---
pt expected to transfer to [facility]
[2025-07-08 15:19] VITALS: BP 113/69; PULSE 83; RESP 18; TEMP 36.5; O2SAT 95
--- NOTE | 2025-07-08 16:21 | PM.DS ---
DS: Providers Provider Date of Service: 07/08/25 Date of admission: 07/06/25 16:37 Date of discharge: 07/08/25 Primary care physician: Ami Almanza PA-C Consults: 07/06/25 16:42 Consult to Nephrology Routine Consulting Provider: [facility] Reason for consultation: sachin 07/07/25 09:51 Consult to Hematology / Oncology Routine Consulting Provider: [facility] Oncology/Hematology Reason for consultation: high suspicion for multiple myeloma, renal failure, needs to be seen kelly DS: Diagnosis Discharge Diagnosis (1) ESRD needing dialysis: Status: Acute (2) Monoclonal gammopathy of renal significance (MGRS): Status: Acute DS: Summary Hospital Course Hospital Course: 69 year old man with a background of HTN, CKD, presents with rapidly worsening renal failure, admitted for progressive SACHIN on CKD s/p PermCath 07/07/2025 and initiation of hemodialysis [place] The patient presented to the ER with worsening renal failure. Patient follows with [facility] renal and the patient's kidney function has been getting worse and nephrology advised him to come to the ER for emergent dialysis. Patient denied any chest pain, shortness breath, nausea, vomiting, diarrhea, fever, chills. Creatinine was 6.10, potassium 3.1, BNP 927 but not in over overload. Patient received a dose of desmopressin in the ER as well as Tylenol. Plan will be to admit patient for further management and treatment of emergent dialysis. As per Hematology/' Oncology note: DIFFERENTIAL DIAGNOSIS: 1. MGUS: Is less likely. 2. MULTIPLE MYELOMA: He does have anemia, elevated creatinine and elevated protein level, with monoclonal gammopathy, and elevated free light chain ratio. I proceeded with further evaluation. Checked CBCD: WBC 4.9, HGB 7.2, HCT 21.1, PLT 158. BUN 58, FAMILY [employer] LEGAL ASSISTANT is 4.72. LDH: 238. I rechecked SIEP: 516/34/5. Urine SIEP: Free light chain kappa band seen. Faint kappa light chains. Free light chain ratio: 202.83. l checked beta 2 microglobulin level: 12.60. I proceeded with a bone marrow exam. This was done on 07/04 and revealed; Involvement by patient's known plasma cell dyscrasia. Plasma cells are 14% of the aspirate in 30% of the biopsy/clot. Concurrent flow cytometry: Positive for kappa light chain restricted plasma cells. B and T cells without aberrant antigen expression. No increase in blast gate or CD34 positive events identified. Myeloma fish and TTR amyloidosis genetic testing, pending on the bone marrow. Though amyloid is associated with lambda light chains. He now presents with renal failure, now requiring dialysis. most likely has gammopathy of renal significance- evidence of renal failure from monoclonal gammopathy- light chain casts on biopsy. Pt had a permcath placed, receiving dialysis now. Hgb 8.3. calcium 9.7. He appeared hypervolemic, so extra fluid was removed. Fluid restriction of 1.5L/24 hour instituted. PROBLEM LIST SACHIN on CKD stage 4 ESRD HD S/p PermCath placement 07/07/2025 Gammopathy of renal significance Creatinine 6.10 Patient sent in by warehouse forklift operator Received DDAVP in the ER Plan was to place PermCath and initiate dialysis; 1st session of hemodialysis via right-sided PermCath 07/07 ESRD likely 2/2 gammopathy of renal significance, possible MDS. Skeletal survey performed today. RECOMMENDATIONS - continue hemodialysis as per Nephrology - check BMP daily - low-potassium, low phosphorus, low-sodium diet - 1.5 L fluid restriction - Will probably require plasmapheresis as per Nephrology reccs. Gammopathy of renal significance Hematology/oncology consulted during inpatient stay. May require plasmapheresis treatment during inaptient stay Would require transfer to [facility] [place] Status at Discharge Overall status at discharge: patient is not back to baseline Time Attestation Total time managing care of this patient today: 45 mintues. Discharge Coordination Time (in mins): 15 Quality: Safe Use of Opioids Does Pt have an Active Cancer Diagnosis on the Problem List?: No Quality: Stroke Does the patient have a stroke diagnosis?: No Physical Exam Exam: Exam: General: A&O x3, oriented to time place person and situation, comfortable, no pain Cardiac: S1, S2 auscultated with no S3/4, no MRG. Well perfused. Respiratory: Normal breath sounds auscultated throughout all lung zones, without wheezing, rales. Normal rate. GI/ : No abdominal pain on palpation, no masses or distentions. MSK: Normal ambulation without pain at bony prominences or musculature. PermCath noted at the right subclavicular space - no fluctuance, bleeding noted. Bilaterally reduced sensation at the fingertips and weakness. Neurological: Normal neurological examination on overview, without obvious CN II-XII abnormalities. Vital Signs: Vital Signs: Last Vital Signs Temp 97.7 F 07/08/25 15:19 Pulse 83 07/08/25 15:19 Resp 18 07/08/25 15:19 BP 113/69 07/08/25 15:19 Pulse Ox 95 07/08/25 15:19 O2 Del Method Room Air 07/08/25 15:19 O2 Flow Rate 2 07/07/25 10:00 BMI result Body Mass Index 27.2 DS: Data Data Completed and Pending Completed studies during hospitalization [Text1]: Procedures Transfusion of Nonautologous Red Blood Cells into Peripheral Vein, Percutaneous Approach (04/17/25) Labs on day of discharge: Laboratory Results - last 24 hr 07/07/25 07/08/25 11:41 09:52 WBC 10.2 RBC 3.12 L Hgb 9.6 L Hct 28.2 L MCV 90.4 MCH 30.8 MCHC 34.0 RDW 14.2 Plt Count 217 MPV 8.7 L Absolute Nucleated RBC 0.000 Nucleated RBC % (auto) 0.0 Sodium 141 Potassium 3.3 Chloride 101 Carbon Dioxide 28 Anion Gap 15 BUN 33 H Creatinine 2.49 H Estim Creat Clear Calc 26.1 Estimated GFR 26 Random Glucose 96 Calcium 9.7 Phosphorus 2.4 L Hep Bs Antigen Negative Hep Bs Antibody NONREACTIVE Hep B Core Total Ab Nonreactive Hepatitis C Ab (EIA) Nonreactive Imaging Imaging: Radiologist's impression: ITS Impressions Guidance Ultrasound 07/07/25 09:15 IMPRESSION: Successful placement of right permacatheter under fluoroscopy and ultrasound guidance. There are no immediate complications. Fluoroscopy time: 1.4 minutes. Dose: 19.3 mCi. Sedation time: 30 minutes. Electronically signed by: Jon Jenkins MD 07/07/2025 03:13 PM [employer] Insertion Tunneled Catheter 07/07/25 09:15 IMPRESSION: Successful placement of right permacatheter under fluoroscopy and ultrasound guidance. There are no immediate complications. Fluoroscopy time: 1.4 minutes. Dose: 19.3 mCi. Sedation time: 30 minutes. Electronically signed by: Jon Jenkins MD 07/07/2025 03:13 PM EDT RP Bone Osseous Survey 07/08/25 10:25 IMPRESSION: There is a mottled appearance of left greater than right proximal humeri and scapulas. This may be due to osteopenia, but underlying lytic lesions cannot definitively be ruled in or out. There is a focal area of osteopenia involving the cortex of the proximal right radius, just distal to the radial tuberosity, that is probably related to a vascular channel rather than a lytic lesion. Electronically signed by: Tono Henry MD 07/08/2025 11:14 AM EDT RP Additional Comments Additional comments: XRAY SKELETAL SURVEY RESULT 07/08/2025: Ordering Physician: Omero Gloria MD Date of Service: 07/08/25 Procedure(s): XR bone survey Accession Number(s): [id number] cc: Omero Gloria MD; Ami Almanza PA-C~ Reason for Exam: Multiple myeloma, initial staging. EXAMINATION: XR BONE SURVEY, COMPLETE CLINICAL INFORMATION: Multiple myeloma, initial staging. COMPARISON: None available. TECHNIQUE: Lateral skull, lateral C-spine, frontal and lateral T spine, frontal and lateral L spine, AP pelvis, AP chest x-ray, AP bilateral humerus, AP bilateral forearms, AP bilateral femurs, AP bilateral tibia and fibula x-rays were performed FINDINGS: Skull: No lytic lesions are seen. There is calcification probably in the region of the pineal gland. There is a nuchal ligament enthesophyte. Cervical spine: There is reversal cervical lordosis with moderate degenerative change at C5-6 and C6-7. There is nuchal ligament ossification dorsal to C4-5 spinous process. There is also ossification inferior to the spinous process tip at C7. No lytic or blastic lesions. Chest x-ray: Lungs are clear and well aerated. Heart size is within normal limits. There is a tunneled central catheter placed in the internal jugular vein and terminating in the superior cavoatrial junction. No lytic or blastic lesions are identified. Right left humerus: There is osteopenia with a mottled appearance of the scapula and both humeri. The left is more affected than the right. Underlying small lytic lesions would be difficult to definitively rule in or out. Right and left forearms: There is vague lucency in the cortex of the right radius, just distal to the radial tuberosity that does not have the typical punched-out appearance of multiple myeloma. Pelvis: There is severe end-stage degenerative changes in the right hip joint with subchondral collapse, degenerative cystic change, large marginal osteophytes, and obliteration of the superior lateral hip joint space. The right iliac aorta is obscured by stool in the cecum. No definite lytic lesions are identified. Right femur: Aside from aforementioned degenerative changes in the right hip, no lytic or blastic lesions are identified. Left humerus: No lytic or blastic lesions are identified. Bilateral tibia and fibula: Intercondylar tubercles are peaked bilaterally and there is a marginal osteophyte involving the notch side of the lateral femoral condyle bilaterally. There is mild degenerative irregularity of the proximal left tibia fibula joint. XR/XR bone survey IMPRESSION: There is a mottled appearance of left greater than right proximal humeri and scapulas. This may be due to osteopenia, but underlying lytic lesions cannot definitively be ruled in or out. There is a focal area of osteopenia involving the cortex of the proximal right radius, just distal to the radial tuberosity, that is probably related to a vascular channel rather than a lytic lesion. Electronically signed by: Tono Henry MD 07/08/2025 11:14 AM EDT BONE MARROW BIOPSY 07/04/2025 Ordering Physician: Omero Gloria MD Date of Service: 07/04/25 Procedure(s): CT biopsy asp core bone marrow Accession Number(s): [id number] cc: Omero Gloria MD; Ami Almanza PA-C~ Report Number: [id number]: Total DLP = 250.00 mGy-cm Reason for Exam: Multiple myeloma. Examination: CT-guided bone marrow biopsy. CLINICAL INDICATION: Multiple myeloma. COMPARISON: CT-guided kidney biopsy 04/27/2025. FINDINGS: Following explaining CT fluoroscopy guided bone marrow biopsy procedure, benefits and risk, a written consent was obtained. Patient was placed prone on fluoroscopy table and preliminary CT imaging was obtained. An optimal slice was selected and markers placed along the posterior left buttock. Repeat CT imaging was performed. An optimal marker was selected and marked on the skin. The area was cleaned and draped in usual sterile manner with 2% chlorhexidine solution. 1% lidocaine was injected puncture site. Through a small skin incision a 18-gauge guide needle was advanced from the skin to the level of cortex and through the cortex with a drill attached to the needle penetrating the cortex. CT fluoroscopy imaging was obtained during exam. The stylet was withdrawn and saline attached to the guide needle. Approximately 15 mL of blood was aspirated in a syringe. The bladder was transferred to 5 test tubes as signed by the pathology department. Subsequently there was attached to the guide needle and a core biopsy was obtained of the bone marrow. Post biopsy the guide needle was withdrawn and complete hemostasis achieved at puncture site. Repeat CT check was performed for bleeding. Simple dressing was applied post procedure. Conscious sedation was utilized during exam and patient monitored by our nurse and IR physician. FINDINGS: On preliminary CT imaging there is mild hypodensity in right pectineus muscle question edema or focal fluid collection. It is best visualized on axial slice 50/4. There is mild loss of left hip joint space with periarticular spurring. Minimal loss of right hip joint space is seen. No acute fracture or lytic process seen. No abnormal pelvic lymphadenopathy. There is no free fluid. There is colonic diverticulosis. CT fluoroscopy guided left posterior iliac crest bone marrow biopsy performed with conscious sedation. There are no immediate complications. Postprocedure CT revealed no bleeding. CT/CT biopsy asp core bone marrow IMPRESSION: Successful CT fluoroscopy guided left posterior iliac crest bone marrow biopsy and aspiration performed. On preliminary CT imaging there is mild hypodensity of right pectineus muscle question edema. Discharge Plan Discharge Anticipated Discharge Date/Time: 07/08/25 16:31 Patient Disposition: er Acute Care Hospital Discharge Diagnosis: SACHIN progressing to CKD requiring PermCath placement for hemodialysis pending plasmapheresis Referrals: [facility] [Other] - 1 Week Ami Almanza PA-C [Primary Care Provider, Internal Medicine] - 1 Week Discharge Medications: Continued sodium bicarbonate 650 mg tablet 650 mg PO DAILY Stool Softener 50 mg Capsule 50 mg PO DAILY PRN (Reason: Constipation) gabapentin 100 mg capsule 100 mg PO DAILY@1800 allopurinol 100 mg tablet 100 mg PO DAILY Qty: 90 3RF oxycodone 5 mg tablet 5 mg PO BID PRN (Reason: pain) 30 Days Qty: 60 0RF Rx Instructions: Partial Fill upon patient request. Held labetalol 100 mg Tablet 100 mg PO BID Qty: 180 0RF Hold Instructions: On hold during hospital stay - resume as indicated Protocol: Hold for SBP/HR < HOLD for SBP < : 90 HOLD for HR < : 60 furosemide 40 mg tablet 80 mg PO BID Hold Instructions: On hold during hospital stay - resume as indicated Activity on Discharge: As tolerated Stand Alone Forms: Patient Portal Discharge page Print Language: Welsh Care Plan Goals: Transfer to [facility] [place] for plasmapheresis Health Concerns: Transfer to [facility] [place] for plasmapheresis Plan of Treatment: Transfer to [facility] [place] for plasmapheresis Assessment: As above Patient Instructions: Low-Sodium Diet (GEN)
[2025-07-08] MEDS: 0.9 % Sodium Chloride Flush 3 ML SYRINGE IVFLUSH ×2 (16:30→20:12)
[2025-07-08 16:37] LABS: COVID-19 Test Negative (Negative); IDNOW Serial# 55D5AD1C
--- NOTE | 2025-07-08 17:29 | PC.NURSE ---
Report given to Nurse Ritchie at [facility], [facility]
[2025-07-08 19:47] VITALS: BP 115/57; PULSE 87; RESP 18; TEMP 36.4; O2SAT 95
== END 2025-07-08 20:35 | disposition short-term general hospital (02) | DRG 674 ==
LOC: HO.ED 15:57 → HO.EDOVER 16:59 → HO.S3 19:40
PROVIDERS: Internal Medicine Critical Care Medicine; Nurse Practitioner Family; Physician Assistant Medical; Radiology Diagnostic Radiology; Admitting Provider Nurse Practitioner Acute Care; Emergency Provider Emergency Medicine; PCP Physician Assistant Medical; Visit Provider Hospitalist
PROC: 0JH63XZ Insertion of Tunneled Vascular Access Device into Chest Subcutaneous Tissue and Fascia, Percutaneous Approach (ICD-10-PCS; principal; 2025-07-07 09:00)
DX: I12.0 Hypertensive chronic kidney disease with stage 5 chronic kidney disease or end stage renal disease (principal); C90.00 Multiple myeloma not having achieved remission; N17.9 Acute kidney failure, unspecified; Z99.2 Dependence on renal dialysis; N18.6 End stage renal disease; D47.2 Monoclonal gammopathy; E87.6 Hypokalemia; M10.9 Gout, unspecified; D63.1 Anemia in chronic kidney disease; Z87.891 Personal history of nicotine dependence; Z79.899 Other long term (current) drug therapy
CPT/HCPCS: 36415; 36558; 71046; 76937; 77075; 80048; 80076; 81404; 83735; 83880; 84100; 85025; 85027; 85610; 86704; 86706; 86803; 87340; 87635; 90999; 93306; 99152; 99153; 99285; C1750; C1769; J0131; J0690; J1644; J2003; J2250; J3010; Q5106; Q9957

== ENCOUNTER → 2025-07-06 16:34 | Outpatient (BNV) | payer MEDICARE, MEDICAID, SELFPAY | PROVIDERS: Admitting Provider Nurse Practitioner Acute Care; Emergency Provider Emergency Medicine; PCP Physician Assistant Medical; Visit Provider Nuclear Medicine | DX: N17.9 Acute kidney failure, unspecified (principal) | CPT/HCPCS: 71046 ==

== ENCOUNTER 2025-07-06 16:37 | Outpatient (BNV) | payer MEDICARE, MEDICAID, SELFPAY | END 2025-07-07 15:54 | PROVIDERS: Admitting Provider Nurse Practitioner Acute Care; Emergency Provider Emergency Medicine; PCP Physician Assistant Medical; Visit Provider Radiology Diagnostic Radiology | DX: N17.9 Acute kidney failure, unspecified (principal) | CPT/HCPCS: 36558; 76937 ==

== ENCOUNTER 2025-07-06 16:37 | Outpatient (BNV) | payer MEDICARE, MEDICAID, SELFPAY | END 2025-07-08 08:00 | PROVIDERS: Admitting Provider Nurse Practitioner Acute Care; Emergency Provider Emergency Medicine; PCP Physician Assistant Medical; Visit Provider Radiology Diagnostic Radiology | DX: M85.831 Other specified disorders of bone density and structure, right forearm (principal) | CPT/HCPCS: 77075 ==

== ENCOUNTER 2025-07-06 16:37 | Outpatient (BNV) | payer MEDICARE, MEDICAID, SELFPAY | END 2025-07-07 07:00 | PROVIDERS: Admitting Provider Nurse Practitioner Acute Care; Emergency Provider Emergency Medicine; PCP Physician Assistant Medical; Visit Provider Internal Medicine | DX: I31.39 Other pericardial effusion (noninflammatory) (principal); I51.89 Other ill-defined heart diseases | CPT/HCPCS: 93306 ==

== ENCOUNTER → 2025-07-06 16:37 | Outpatient (BNV) | payer MEDICARE, MEDICAID, SELFPAY | PROVIDERS: Admitting Provider Nurse Practitioner Acute Care; Emergency Provider Emergency Medicine; PCP Physician Assistant Medical; Visit Provider Internal Medicine Medical Oncology | DX: D47.2 Monoclonal gammopathy (principal); D64.9 Anemia, unspecified; R77.9 Abnormality of plasma protein, unspecified; N18.9 Chronic kidney disease, unspecified | CPT/HCPCS: 99222 ==

== ENCOUNTER → 2025-07-06 16:37 | Outpatient (BNV) | payer MEDICARE, MEDICAID, SELFPAY | PROVIDERS: Admitting Provider Nurse Practitioner Acute Care; Emergency Provider Emergency Medicine; PCP Physician Assistant Medical; Visit Provider Nurse Practitioner Family | DX: N18.6 End stage renal disease (principal); Z99.2 Dependence on renal dialysis; D47.2 Monoclonal gammopathy; N29 Other disorders of kidney and ureter in diseases classified elsewhere | CPT/HCPCS: 90935 ==

== ENCOUNTER → 2025-07-06 23:59 | Outpatient (BNV) | payer MEDICARE, MEDICAID, SELFPAY | PROVIDERS: PCP Physician Assistant Medical; Visit Provider Internal Medicine Nephrology | DX: N18.6 End stage renal disease (principal) | CPT/HCPCS: 90962 ==

== ENCOUNTER → 2025-08-06 23:59 | Outpatient (BNV) | payer MEDICARE, MEDICAID, SELFPAY | PROVIDERS: PCP Physician Assistant Medical; Visit Provider Internal Medicine Nephrology | DX: N18.6 End stage renal disease (principal) | CPT/HCPCS: 90961 ==

== ENCOUNTER 2025-08-08 14:59 | Outpatient (AMB) | payer MEDICARE, MEDICAID, SELFPAY ==
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
[2025-08-08 15:03] VITALS: BP 110/51; PULSE 82; RESP 16; TEMP 36.8; O2SAT 98; BMI 29.2
== END 2025-08-08 16:01 | disposition home or self-care (01) ==
LOC: HO.HMCSH 14:59
PROVIDERS: PCP Physician Assistant Medical; Visit Provider Physician Assistant Medical
DX: N18.6 End stage renal disease (principal); C90.00 Multiple myeloma not having achieved remission; Z99.2 Dependence on renal dialysis; Z79.899 Other long term (current) drug therapy; Z45.2 Encounter for adjustment and management of vascular access device; Z09 Encounter for follow-up examination after completed treatment for conditions other than malignant neoplasm

== ENCOUNTER → 2025-08-08 14:59 | Outpatient (BNVA) | payer MEDICARE, MEDICAID, SELFPAY | PROVIDERS: PCP Physician Assistant Medical; Visit Provider Physician Assistant Medical | DX: Z09 Encounter for follow-up examination after completed treatment for conditions other than malignant neoplasm (principal); N18.6 End stage renal disease; Z99.2 Dependence on renal dialysis; C90.00 Multiple myeloma not having achieved remission; Z79.899 Other long term (current) drug therapy; Z13.31 Encounter for screening for depression; Z13.39 Encounter for screening examination for other mental health and behavioral disorders; T23.109A Burn of first degree of unspecified hand, unspecified site, initial encounter | CPT/HCPCS: 96127; 99212 ==

== ENCOUNTER → 2025-09-05 23:59 | Outpatient (BNV) | payer MEDICARE, MEDICAID, SELFPAY | PROVIDERS: PCP Physician Assistant Medical; Visit Provider Internal Medicine Nephrology | DX: N18.6 End stage renal disease (principal) | CPT/HCPCS: 90961 ==

== ENCOUNTER 2025-09-22 14:55 | Outpatient (AMB) | payer MEDICARE, MEDICAID, SELFPAY ==
[2025-09-22 14:58] VITALS: BP 111/53; PULSE 94; RESP 16; TEMP 36.4; O2SAT 97; BMI 29.1
--- NOTE | 2025-09-22 14:58 | MHC.PC.OV ---
Vital Signs 09/22/25 14:58 Height 5 ft 6.54 in Weight 183 lb BMI 29.1 BP 111/53 L Blood Pressure Location Rt brachial Position Sitting Respiration 16 Pulse 94 Pulse Source Pulse Oximeter Temp 97.6 F Temp Source Temporal Artery Scan Pulse Oximetry (%) 97 Oxygen Delivery Method Room Air Intake Visit Reasons: 1 Month follow up Ribbon Inker Required: No Accompanied by: Spouse Allergies No Known Allergies Allergy (Verified 09/22/25 16:10) Medication List - Last Reconciled 09/22/25 by Ami Almanza PA-C acyclovir 200 mg PO BID allopurinol 100 mg PO DAILY furosemide (Lasix) 80 mg (2 x 40 mg) PO BID 90 days gabapentin 100 mg PO BID gentamicin 0.1% 1 appl topical QID midodrine 5 mg PO BID sevelamer carbonate 1,600 mg PO TID sulfamethoxazole-trimethoprim 400-80 mg 1 tab PO 3XW Tobacco use date assessed: 04/22/25 Dental Screening Dental Screen Date: 04/22/25 HPI HPI Comments History of Present Illness Details History of Present Illness The patient is a 69 year old male presenting for a follow-up visit for management of his chronic conditions. Upon presentation, he was noted to have a yellowish skin discoloration, which was a new finding since his last visit approximately one month ago. The patient reports feeling well and denies any abdominal pain, nausea, fevers, chest pain, or shortness of breath. The patient has a history of multiple myeloma and had a chemotherapy session earlier today. His recent labs showed a hemoglobin of 7.1 and hematocrit of 20.7, and he is scheduled for a blood transfusion on Friday. His liver function tests from 09/08 were normal, including an alkaline phosphatase of 80, AST of 15, ALT of 15, and total bilirubin of 0.5. He has a history of end-stage renal disease and undergoes dialysis. He is on Lasix 80 mg twice a day, which was continued by Dr. Munroe. A 24-hour urine test was completed about two weeks prior, but the results have not yet been received. Other chronic issues include hip problems and numbness in his fingers. He reports some improvement in finger mobility but is still unable to make a full fist with his right hand. His overall condition has markedly improved since stopping OxyContin, with resolution of prior hallucinations and a significant increase in energy and alertness. Social History - Functional Status: The patient's functional status has significantly improved; he is more awake, energetic, and talkative compared to previous visits when he was on OxyContin and experiencing hallucinations. [facility] Medical History (Updated 09/22/25 @ 16:13 by Ami Almanza PA-C) Healthcare maintenance Jaundice Superficial burn of hand Encounter for care related to vascular access port CKD (chronic kidney disease) stage V requiring chronic dialysis Medication management Spinal stenosis Bilateral cataracts Muscular deconditioning Localized swelling of both lower legs Skin irritation Peripheral edema MGUS (monoclonal gammopathy of unknown significance) Encounter for preventive care Gout Pre-diabetes Hypertension CKD (chronic kidney disease) Hospital discharge follow-up Establishing care with new doctor, encounter for Enlarged prostate Surgical History Hx of colonoscopy Hx of umbilical hernia repair Hx of right inguinal hernia repair Family History Father Congenital heart failure Mother Arthritis Social History Household Members: Spouse Housing: House Do you presently have visiting nurse or other home services: Yes Alcohol intake: current Alcohol intake frequency: does not drink Patient Tobacco Use Status: Former Tobacco user Tobacco use type: Cigarette service: No Current occupational status: retired Cognitive needs: No Hearing needs: No Vision needs: Yes (rx glasses) Questionnaire PHQ-9 Over the last 2 weeks, how often have you been bothered by any of the following problems? 1. Little interest or pleasure in doing things: not at all 2. Feeling down, depressed, or hopeless: not at all 3. Trouble falling or staying asleep, or sleeping too much: not at all 4. Feeling tired or having little energy: not at all 5. Poor appetite or overeating: not at all 6. Feeling bad about yourself - or that you are a failure or have let yourself or your family down: not at all 7. Trouble concentrating on things, such as reading the newspaper or watching television: not at all 8. Moving or speaking so slowly that other people could have noticed. Or the opposite - being so fidgety or restless that you have been moving around a lot more than usual: not at all 9. Thoughts that you would be better off or of hurting yourself in some way: not at all Total score: 0 Depression Screening Interpretation: Negative Depression Screening Done: Yes 41734 - PHQ-9 Billing: Yes Source: Developed by Drs. Mick Lou, Suzy Beltrán, Kuldeep Burrell and colleagues, with an educational angela from [employer]. Thrive Questionnaire Date Thrive assessed: 07/07/25 I am a: Patient What is your living situation today?: I have a steady place to live Within the past 12 months, did the food you bought not last and you didn't have the money to get more?: Never true Within the past 12 months, did you worry whether your food would run out before you got money to buy more?: Never true Do you have trouble paying for medicines?: No Do you have trouble getting transportation to medical appointments?: No Do you have trouble paying your heating and electricity bill?: No Do you have trouble taking care of your child, family member or friend?: No Do you have trouble with day-to-day activities such as bathing, preparing meals, shopping, managing finances, etc.?: No Are you currently unemployed and looking for a job?: No Are you interested in more education?: No Please select the resources that you would like help with: None THRIVE Score: 0 AUDIT C Alcohol Use Questionnaire (AUDIT-C) 1. How often do you have a drink containing alcohol?: Never 3. How often do you have six or more drinks on one occasion?: Never Total Score: 0 Score Reviewed/Action Taken: No FELICITA-7 AMB Questionnaire FELICITA-7 Date FELICITA - 7 assessed: 06/16/25 Feeling nervous, anxious, or on edge: 0 = Not at all Not being able to stop or control worryin = Not at all Worrying too much about different things: 0 = Not at all Trouble relaxin = Not at all Being so restless that it is hard to sit still: 0 = Not at all Becoming easily annoyed or irritable: 0 = Not at all Feeling afraid as if something awful might happen: 0 = Not at all Total FELICITA-7 score (0-4 normal; 5-9 mild; 10-14 moderate; 15-21 severe): 0 Source: Developed by Drs. Mick Lou, Suzy Beltrán, Kuldeep Burrell and colleagues, with an educational angela from [employer]. FELICITA-7 Assessment Billing FELICITA-7 Assessment Tool: FELICITA-7 Assessment 43897 Review of Systems Narrative Review of Systems - Constitutional: Denies fever. - Reports feeling tired but also feels well overall. - Skin: He is unaware of any yellow skin discoloration. - Cardiovascular: Denies chest pain. - Respiratory: Denies shortness of breath. - Gastrointestinal: Denies abdominal pain and nausea. - Reports he has not had a bowel movement recently. - Genitourinary: Reports urinating okay. - Musculoskeletal: Reports ongoing hip problems. - Neurological: Reports numbness in his fingers, although they are a little better. Const All systems reviewed & are unremarkable except as noted in HPI and below Physical exam (Primary Care) Vital Signs: Last Vital Signs Temp 97.6 F 09/22/25 14:58 Pulse 94 09/22/25 14:58 Resp 16 09/22/25 14:58 BP 111/53 L 09/22/25 14:58 Pulse Ox 97 09/22/25 14:58 Oxygen Delivery Method Room Air 09/22/25 14:58 Care Plan Goal for BP management: <140/90 at Goal BMI result Body Mass Index 29.1 BMI Assessment/Plan discussion: High BMI High, discussed plan: lifestyle, weight reduction, dietary, physical activity, alcohol moderation and other Tobacco/Smoking Status: Tobacco use Status Tobacco use date assessed 04/22/25 09/22/25 15:03 Patient Tobacco Use Status Former Tobacco user 09/22/25 15:03 Tobacco use type Cigarette 09/22/25 15:03 PHQ-9: PHQ-9 Score PHQ-9: Total score 0 09/22/25 15:03 Depression Screening Interpretation: Negative Thrive Assessment: Date of Thrive Assessment Date Thrive assessed 07/07/25 09/22/25 15:03 Narrative Physical Exam Appearance: Alert. Oriented X3. No acute distress. Skin appears yellowish, suggestive of jaundice. Head: Normal external exam. Normocephalic. Atraumatic. Eyes: Pupils are equal, round, and reactive to light. Extraocular movements intact. Conjunctiva and sclera normal. Eyelids normal. Ears: External auditory canal normal. Tympanic membranes normal. Throat: Pharynx normal. Uvula midline. Moist mucous membranes. Neck: Normal inspection. Neck supple. Full range of motion. No adenopathy. Thyroid Normal. No meningeal signs. No neck mass noted. Cardiovascular: Normal heart rate and rhythm. Heart sound normal. No murmurs noted. Pulses normal throughout. Respiratory: No respiratory distress. Painless inspiration. Breath sounds normal. No wheezes/rales/rhonchi noted. Chest nontender. No accessory muscle usage noted or decreased air movement noted. Abdomen: Soft and nontender. Bowel sounds normal in all 4 quadrants. No distention noted. No organomegaly noted. No visible injury noted. Back: No costovertebral angle tenderness. Full range of motion noted. Skin: Skin warm and dry. Yellowish discoloration noted. Normal skin turgor. No rashes/lesions/lacerations noted. Extremities: No lower extremity edema. Extremities exhibit normal range of motion. Neuro: Oriented X 3. No motor deficit. No sensory deficit. Reflexes normal. Results Reviewed Results Reviewed: Results - Laboratory Studies (current day): Hemoglobin 7.1 g/dL and hematocrit 20.7%. - Laboratory Studies (09/08): Alkaline phosphatase 80 U/L, AST 15 U/L, ALT 15 U/L, and total bilirubin 0.5 mg/dL. - Tests and Diagnostics: A 24-hour urine test was performed approximately two weeks ago; results are not yet available in the patient's record. Coding Level of Care Code Est Pt Level 4 (47231) Add On Problem Visit Only Diagnoses Jaundice R17 Anemia, unspecified type D64.9 Anemia type: unspecified type Multiple myeloma C90.00 ESRD needing dialysis N18.6; Z99.2 CKD (chronic kidney disease) stage V requiring chronic dialysis N18.6; Z99.2 Healthcare maintenance Z00.00 Additional Codes FELICITA-7 Assessment Billing - FELICITA-7 Assessment Tool: FELICITA-7 Assessment 45691 ([id number]) PHQ-9 - 27670 - PHQ-9 Billing: Yes ([id number]) Time Spent (min) 65 Assessment & Plan Assessment & Plan (1) Jaundice: Code(s): R17 - Unspecified jaundice Category: Medical Plan: The patient presents with new-onset jaundice noted on physical exam, although he is asymptomatic and feels well. His liver function tests were normal on 09/08. The plan is to add liver function tests to his scheduled blood draw tomorrow to further evaluate the jaundice. A paper order was provided to the patient to ensure completion of the test. The patient was advised to go to the emergency room for any new abdominal pain, nausea, vomiting, or fever. (2) Anemia: Code(s): D64.9 - Anemia, unspecified Category: Medical Qualifiers: Anemia type: unspecified type Qualified Code(s): D64.9 - Anemia, unspecified Plan: The patient has significant anemia, with a recent hemoglobin of 7.1 g/dL. He is scheduled to undergo a blood transfusion on Friday. He will have a type and screen blood draw tomorrow in preparation. (3) Multiple myeloma: Code(s): C90.00 - Multiple myeloma not having achieved remission Category: Medical Plan: The patient has a known diagnosis of multiple myeloma and is undergoing active chemotherapy. He will continue with his current oncology management. (4) ESRD needing dialysis: Code(s): N18.6 - End stage renal disease; Z99.2 - Dependence on renal dialysis Category: Medical Plan: The patient is on chronic dialysis for end-stage renal disease. He will continue his current prescription for Lasix 80 mg twice daily. He was advised to ask his microbiology lab analyst about the pending results of his 24-hour urine collection test. (5) CKD (chronic kidney disease) stage V requiring chronic dialysis: Code(s): N18.6 - End stage renal disease; Z99.2 - Dependence on renal dialysis Category: Medical Plan: The patient is on chronic dialysis for end-stage renal disease. He will continue his current prescription for Lasix 80 mg twice daily. He was advised to ask his microbiology lab analyst about the pending results of his 24-hour urine collection test. (6) Healthcare maintenance: Code(s): Z00.00 - Encounter for general adult medical examination without abnormal findings Category: Medical Plan: The patient is showing significant overall improvement. A follow-up visit is scheduled in two months to continue monitoring his chronic health issues. Plan Plan Patient was informed and verbally consented to the use of an ambient scribe for clinic note documentation during this visit. 1. Jaundice The patient presents with new-onset jaundice noted on physical exam, although he is asymptomatic and feels well. His liver function tests were normal on 09/08. The plan is to add liver function tests to his scheduled blood draw tomorrow to further evaluate the jaundice. A paper order was provided to the patient to ensure completion of the test. The patient was advised to go to the emergency room for any new abdominal pain, nausea, vomiting, or fever. 2. Anemia The patient has significant anemia, with a recent hemoglobin of 7.1 g/dL. He is scheduled to undergo a blood transfusion on Friday. He will have a type and screen blood draw tomorrow in preparation. 3. Multiple Myeloma The patient has a known diagnosis of multiple myeloma and is undergoing active chemotherapy. He will continue with his current oncology management. 4. End-Stage Renal Disease The patient is on chronic dialysis for end-stage renal disease. He will continue his current prescription for Lasix 80 mg twice daily. He was advised to ask his microbiology lab analyst about the pending results of his 24-hour urine collection test. 5. Health Maintenance The patient is showing significant overall improvement. A follow-up visit is scheduled in two months to continue monitoring his chronic health issues. Discussion Notes I expressed my concern to the patient and his core winding operator that his skin appeared jaundiced, a finding that seemed new since his last visit. We discussed that while he felt well and his liver labs were normal on 09/08, it would be prudent to repeat them. We agreed that he would have liver enzymes added to his blood work scheduled for tomorrow, and I provided a paper order to facilitate this. I provided strict return precautions, advising him to go to the emergency room for any new abdominal pain, nausea, vomiting, or fever. We also discussed the pending results for his recent 24-hour urine collection, and I recommended he ask his microbiology lab analyst about them directly. I acknowledged his remarkable improvement in energy and mental clarity, which he has experienced since stopping other medications. We mutually agreed to a follow-up appointment in two months. Medications: Changed From gabapentin 100 mg PO ONCE 90 caps 3RF pain 90 days To gabapentin 100 mg PO BID Patient Instructions: Patient Instructions - When you go for your blood draw tomorrow, please give the staff the paper order I gave you. - This is to make sure they check your liver function. - Proceed with your scheduled blood transfusion on Friday. - Please follow up with your kidney doctor, Dr. Munroe, about the results of your 24-hour urine test. - Go to the nearest emergency room if you develop any belly pain, nausea, vomiting, or fever. - We will see you back in the office in two months.
--- OUTSIDE RECORDS SUMMARY | 2025-09-22 19:02 | XMS_ITS | Clinical Summary ---
Author Organization [facility], Address [address] [place] [address] Phone Care Team Providers Care Security Threat Analyst Name Role Phone Ami Almanza Primary Care Provider Un available Encounters Date Type Department Care Team Description 08/08/2025 1:00 PM EST Office Visit [facility] - [facility] [address] [place] [address] Liang Downs MD Acute nontraumatic kidney injury, not otherwise specified (HCC) (Primary Dx) from Last 3 Months Social History Tobacco Use Types Packs/Day Years Used Date Smoking Tobacco: Never Assessed Sex and Gender Information Value Date Recorded Sex Assigned at Not on file Legal Sex Male 9:17 AM EDT Gender Identity Not on file Sexual Orientation Not on file Plan of Treatment Health Maintenance Due Date Last Done Comments Pneumococcal Vaccine: 50+ Ye ars (1 of 2 - PCV) 12/25/1974 Colorectal Cancer Screening: Annual FOBT 12/25/2004 Colorectal Cancer Screening: Colonoscopy 12/25/2004 Colorectal Cancer Screening: Sigmoidoscopy 12/25/2004 Influenza Vaccine (#1) 2025 Hepatitis B Vaccine Aged Out No longe r eligible based on patient's age to complete this topic Insurance Medicare Medicaid [place] Care Teams Security Threat Analyst Relationship Specialty Start Date End Date Ami Almanza PA [address] [place] [address] PCP - General Emergency Medicine 08/08/25
--- OUTSIDE RECORDS SUMMARY | 2025-09-22 19:02 | XMS_ITS | Encounter Summary ---
Author Organization [facility] Address [address] [place] [address] Care Team Providers Care University Internship Name Role Phone Physician, Pcp Unknown Primary Care Provider Lali vailable Encounter Details Date Type Department Care Team (Late st Contact Info) Description 08/01/2025 Lab Requisition [facility] - Main Lab [address] [facility] [place] [address] Fer Munroe MD [address] [place] [address] Anemia in other chronic diseases classified elsewhere Social History Tobacco Use Types Packs/Day Years Used Date Smoking Tobacco: Never Assessed Sex and Gender Information Value Date Recorded Sex Assigned at Not on file Legal Sex Male 7:08 PM EDT Gender Identity Not on file Sexual Orientation Not on file documented as of this encounter Plan of Treatment Not on file documented as of this encounter Procedures Procedure Name Priority Date/Time Associated Diagnosis Comments HEMOGLOBIN STAT 08/01/2025 11:50 AM EDT Anemia in other chronic diseases classified elsewhere documented in this encounter Results * (ABNORMAL) Hemoglobin (08/01/2025 11:50 AM EDT) Hemoglobin 6.5(L) 13.5 - 17.5 g/dL LAB HEMETOLOGY METHOD 08/01/2025 7:[address] [facility] Blood Venous blood specimen / Unknown 08/01/2025 11:50 AM EDT 08/01/2025 7:18 PM EDT us Fer Munroe MD LAB BLOOD ORDERABLES Final Resul t [facility] [address] [place] [address], documented in this encounter Visit Diagnoses Diagnosis Anemia in other chronic diseases classified elsewhere documented in this encounter Care Teams University Internship Relationship Specialty Start Date End Date Physician, Pcp Unknown PCP - General 08/02/25 documented as of this encounter
--- OUTSIDE RECORDS SUMMARY | 2025-09-22 19:02 | XMS_ITS | Clinical Summary ---
Author Organization [facility] Address [address] [place] [address] Phone Care Team Providers Care Audit Practice Intern Name Role Phone Physician, Pcp Unknown Primary Care Provider Lali vailable Encounters Date Type Department Care Team Description 08/01/2025 Lab Requisition [facility] - Main Lab [address] [facility] [place] [address] Fer Munroe MD Anemia in other chronic diseases classified elsewhere from Last 3 Months Social History Tobacco Use Types Packs/Day Years Used Date Smoking Tobacco: Never Assessed Sex and Gender Information Value Date Recorded Sex Assigned at Not on file Legal Sex Male 7:08 PM EDT Gender Identity Not on file Sexual Orientation Not on file Plan of Treatment Health Maintenance Due Date Last Done Comments Colorectal Cancer Screening: Colonoscopy 1955 DTaP,Tdap,and Td Vaccines (1 - Tdap) 12/25/1974 Pneumococcal Vaccine: 50+ Ye ars (1 of 1 - PCV) 12/25/2005 Zoster Vaccines (1 of 2) 12/25/2005 Depression Screening 10/06/2024 COVID-19 Vaccine (1 - 2024-2 6 season) 2025 Influenza Vaccine (#1) 2025 Abdominal Aortic Aneurysm (A AA) Screen 08/01/2025 Cholesterol Screening (Lipid Panel) 08/01/2025 Falls Risk Assessment 08/01/2025 Hepatitis C Screening 08/01/2025 Social Influencers of Health Screening 08/01/2025 RSV Immunization Adult Patie nts (1 - 1-dose 75+ series) 12/25/2030 HIB Vaccines Aged Out No longer eligi ble based on patient's age to complete this topic HPV Vaccines Aged Out No longer eligi ble based on patient's age to complete this topic Hepatitis A Vaccines Aged Out No long er eligible based on patient's age to complete this topic Hepatitis B Vaccines Aged Out No long er eligible based on patient's age to complete this topic IPV Vaccines Aged Out No longer eligi ble based on patient's age to complete this topic MMR Vaccines Aged Out No longer eligi ble based on patient's age to complete this topic Meningococcal ACWY Vaccine Aged Out N o longer eligible based on patient's age to complete this topic Meningococcal B Vaccine Aged Out No l onger eligible based on patient's age to complete this topic RSV Immunization Patients Un concetta 20 months Aged Out No longer eligible b ased on patient's age to complete this topic Varicella Vaccines Aged Out No longer eligible based on patient's age to complete this topic Procedures Procedure Name Priority Date/Time Associated Diagnosis Comments HEMOGLOBIN STAT 08/01/2025 11:50 AM EDT Anemia in other chronic diseases classified elsewhere from Last 3 Months Results * (ABNORMAL) Hemoglobin (08/01/2025 11:50 AM EDT) Hemoglobin 6.5(L) 13.5 - 17.5 g/dL LAB HEMETOLOGY METHOD 08/01/2025 7:24 PM EDT [facility] Blood Venous blood specimen / Unknown 08/01/2025 11:50 AM EDT 08/01/2025 7:18 PM EDT us Fer Munroe MD LAB BLOOD ORDERABLES Final Resul t [facility] [address] [place] [address], [place] [phone] from Last 3 Months Care Teams Audit Practice Intern Relationship Specialty Start Date End Date Physician, Pcp Unknown PCP - General 08/02/25
== END 2025-09-22 15:43 | disposition home or self-care (01) ==
LOC: HO.HMCSH 14:55
PROVIDERS: PCP Physician Assistant Medical; Visit Provider Physician Assistant Medical
DX: R17 Unspecified jaundice (principal); D64.9 Anemia, unspecified; C90.00 Multiple myeloma not having achieved remission; N18.6 End stage renal disease; Z99.2 Dependence on renal dialysis; Z00.00 Encounter for general adult medical examination without abnormal findings

== ENCOUNTER → 2025-09-22 14:55 | Outpatient (BNVA) | payer MEDICARE, MEDICAID, SELFPAY | PROVIDERS: PCP Physician Assistant Medical; Visit Provider Physician Assistant Medical | DX: N18.6 End stage renal disease (principal); R17 Unspecified jaundice; D64.9 Anemia, unspecified; Z13.31 Encounter for screening for depression; Z99.2 Dependence on renal dialysis; Z79.899 Other long term (current) drug therapy | CPT/HCPCS: 96127; 99212 ==